=== PATIENT | female | born 1990 | race Caucasian/White ===

== ENCOUNTER → 2018-05-14 14:26 | Outpatient (CLI) | payer OTHER, SELFPAY ==
[2018-05-16 13:29] LABS: HPV Reflexed? NOT INDICATED
== END ==
PROVIDERS: Visit Provider Obstetrics & Gynecology
DX: Z12.4 Encounter for screening for malignant neoplasm of cervix (principal)
CPT/HCPCS: 88175; G0145

== ENCOUNTER → 2019-03-11 | Outpatient (CLI) | payer BC, SELFPAY | END | disposition home or self-care (01) | PROVIDERS: Family Provider Family Medicine; PCP Family Medicine; Visit Provider Family Medicine | DX: R10.9 Unspecified abdominal pain (principal) ==

== ENCOUNTER → 2019-06-11 | Outpatient (CLI) | payer BC, SELFPAY ==
[2019-06-11 09:08] VITALS: BMI 35.7
[2019-06-11 10:32] LABS: Cholesterol 201 mg/dL (200); Glucose 87 mg/dL (74-106); High Density Lipoprotein 45 mg/dL; Thyroid Stim Hormone (TSH) 1.48 uIU/mL (0.358-3.74); Triglycerides 192 mg/dL; Very Low Density Lipoprotein 38 mg/dL (5-40)
== END | disposition home or self-care (01) ==
LOC: PAVLAB 09:38
PROVIDERS: Family Provider Family Medicine; PCP Family Medicine; Referring Provider Nurse Practitioner Women's Health; Visit Provider Nurse Practitioner Women's Health
DX: E28.2 Polycystic ovarian syndrome (principal)
CPT/HCPCS: 36415; 80061; 82947; 84443

== ENCOUNTER → 2020-03-27 11:02 | Outpatient (CLI) | payer BC, SELFPAY ==
[2020-03-24 14:16] VITALS: BMI 35.7
--- NOTE | 2020-03-27 11:04 | US_ITS ---
STUDY: ULTRASOUND OF THE FEMALE PELVIS - COMPLETE REASON FOR EXAM: Female, 29 years old. IRREGULAR MENSES PELVIC PAIN LMP: January 18, 2020 . TECHNIQUE: Transabdominal and Transvaginal. TECHNICAL QUALITY: Adequate. COMPARISON: None. FINDINGS: The uterus is anteverted and is tilted to the right side of the pelvis. The uterus measures 6.0 x 3.3 x 2.4 cm. Normal uterine cervix. The endometrium measures 3 mm in thickness, and is hyperechoic. There is no demonstrated endometrial mass. There is no demonstrated myometrial mass. I.U.D. - The patient does not have an I.U.D. The right ovary is visualized. The right ovary measures 3.8 x 1.9 x 1.9 cm. There is no right ovarian cyst or ovarian mass. There is no visualized right adnexal mass or complex lesion. There is normal arterial and normal venous vascularity. The left ovary is visualized. The left ovary measures 3.8 x 2.8 x 1.7 cm. There is no left ovarian cyst or ovarian mass. There is no visualized left adnexal mass or complex lesion. There is normal arterial and normal venous vascularity. There is mild fluid in the cul-de-sac. The pre void volume of the bladder was 554 ml. Polycystic ovary disease: No. US/Pelvic (Non ) IMPRESSION: Normal female pelvis. Electronically Signed: Bryant Simpson MD at 15:24 EDT , Service support ,
--- NOTE | 2020-03-27 11:04 | US_ITS ---
STUDY: ULTRASOUND OF THE FEMALE PELVIS - COMPLETE REASON FOR EXAM: Female, 29 years old. IRREGULAR MENSES PELVIC PAIN LMP: January 18, 2020 . TECHNIQUE: Transabdominal and Transvaginal. TECHNICAL QUALITY: Adequate. COMPARISON: None. FINDINGS: The uterus is anteverted and is tilted to the right side of the pelvis. The uterus measures 6.0 x 3.3 x 2.4 cm. Normal uterine cervix. The endometrium measures 3 mm in thickness, and is hyperechoic. There is no demonstrated endometrial mass. There is no demonstrated myometrial mass. I.U.D. - The patient does not have an I.U.D. The right ovary is visualized. The right ovary measures 3.8 x 1.9 x 1.9 cm. There is no right ovarian cyst or ovarian mass. There is no visualized right adnexal mass or complex lesion. There is normal arterial and normal venous vascularity. The left ovary is visualized. The left ovary measures 3.8 x 2.8 x 1.7 cm. There is no left ovarian cyst or ovarian mass. There is no visualized left adnexal mass or complex lesion. There is normal arterial and normal venous vascularity. There is mild fluid in the cul-de-sac. The pre void volume of the bladder was 554 ml. Polycystic ovary disease: No. US/Transvaginal Non- IMPRESSION: Normal female pelvis. Electronically Signed: Bryant Simpson MD at 15:24 EDT , Service support ,
== END ==
LOC: US 11:04
PROVIDERS: PCP Family Medicine; Referring Provider Nurse Practitioner Women's Health; Visit Provider Nurse Practitioner Women's Health
DX: N92.6 Irregular menstruation, unspecified (principal)
CPT/HCPCS: 76830; 76856

== ENCOUNTER → 2020-04-09 09:54 | Outpatient (CLI) | payer BC, SELFPAY ==
[2020-03-24 14:16] VITALS: BMI 35.7
[2020-04-09 10:31] LABS: Estradiol 33.8 pg/mL; Prolactin 11.7 ng/mL; Thyroid Stim Hormone (TSH) 1.73 uIU/mL (0.358-3.74)
== END ==
LOC: PAVLAB 09:56
PROVIDERS: PCP Family Medicine; Referring Provider Nurse Practitioner Women's Health; Visit Provider Nurse Practitioner Women's Health
DX: N92.6 Irregular menstruation, unspecified (principal)
CPT/HCPCS: 36415; 82670; 84146; 84443

== ENCOUNTER → 2020-04-27 11:15 | Outpatient (CLI) | payer BC, SELFPAY ==
[2020-03-24 14:16] VITALS: BMI 35.7
[2020-04-27 13:19] LABS: Progesterone Level 0.85 ng/mL (See Comment)
== END ==
LOC: PAVLAB 11:16
PROVIDERS: PCP Family Medicine; Referring Provider Nurse Practitioner Women's Health; Visit Provider Nurse Practitioner Women's Health
DX: N92.6 Irregular menstruation, unspecified (principal)
CPT/HCPCS: 36415; 84144

== ENCOUNTER → 2020-06-05 10:11 | Outpatient (CLI) | payer BC, SELFPAY ==
[2020-03-24 14:16] VITALS: BMI 35.7
[2020-06-05 10:16] LABS: Bacteria 0 SEEN /hpf (None Seen); Mucous, Urine 0 SEEN /hpf (<or=2+)
[2020-06-05 12:10] LABS: Absolute Lymphocyte Count 2.02 X10^3/uL (0.83-4.51); Absolute Neutrophil Count 3.7 X10^3/uL (2.0-7.7); Basophil# 0.03 X10^3/uL; Basophil% 0.5 % (0-1); Eosinophil# 0.22 X10^3/uL; Eosinophils% 3.4 % (0-5); Hematocrit 42.5 % (37-47); Hemoglobin 13.9 g/dL (12.0-15.0); Lymphocyte # 2.02 X10^3/ul (4.0); Lymphocyte % 31.1 % (19-41); Mean Corp Hgb Conc 32.7 g/dL (32-36); Mean Corpuscular Hgb 29.4 pg (27.0-32.0); Monocyte# 0.48 X10^3/uL; Monocyte% 7.4 % (0-10); NRBC Flagged by Analyzer 0 % (0-5); Neutrophil # 3.72 X10^3/uL (2.7-7.7); Neutrophil % 57.3 % (47-70); Platelet Count 360 K/mm3 (150-450); RBC Distribution Width CV 12.8 % (11.6-14.6); RBC Distribution Width SD 42.3 fl (35.1-43.9); Red Blood Count 4.72 M/mm3 (4.2-5.4); White Blood Count 6.5 K/mm3 (4.4-11.0)
[2020-06-05 12:21] LABS: Color, Urine Yellow (Yellow); Glucose, Dipstick Normal (Normal); Ketone-Dipstick Negative (Negative); Leukocyte Esterase-Dipstick 100 /ul (Negative); Nitrite-Dipstick Negative (Negative); Occult Blood-Urine 150 /ul (Negative); Protein-Dipstick 15 mg/dl (Negative); Urine Bilirubin Dipstick Negative (Negative); Urine Clarity Clear (Clear); Urine Urobilinogen Normal (Normal)
[2020-06-05 12:29] LABS: Squamous Epithelial Cells - UA 10-25 SEEN /hpf (5-10)
[2020-06-05 12:30] LABS: Red Blood Cells-Urine 5-10 SEEN /hpf (0-5); White Blood Cells 5-10 SEEN /hpf (0-5)
[2020-06-05 12:33] LABS: D-Dimer Quantitative (DVT/PE) 0.42 FEU/ug/m (0.27-0.49)
[2020-06-05 12:34] LABS: Renal Epithelial Cells 0-5 SEEN /hpf (0-5)
[2020-06-05 12:46] LABS: AST(SGOT) 15 U/L (15-37); Alanine Aminotransfer ALT/SGPT 31 U/L (13-56); Alkaline Phosphatase 81 U/L (45-117); Anion Gap 5 (5-15); BUN 15 mg/dL (7-18); BUN/Creat Ratio 18.1 RATIO (10-20); Calcium,Total 9.2 mg/dL (8.5-10.1); Chloride 107 mmol/L (98-107); Creatinine, Serum 0.83 mg/dL (0.55-1.02); EST Glomerular Filtration Rate 87 mL/min (>60); Est Glom Filt Rate - Afr Amer 105 mL/min (>60); Globulin 4.1 g/dL (2.2-4.2); Glucose 89 mg/dL (74-106); Potassium 3.7 mmol/L (3.5-5.1); Protein, Total 8.1 g/dL (6.4-8.2); Sodium Level 139 mmol/L (136-145)
[2020-06-10 08:47] LABS: Aldosterone, Serum 14.3 ng/dL (0.0-30.0)
== END ==
PROVIDERS: PCP Family Medicine; Visit Provider Family Medicine
DX: R53.83 Other fatigue (principal); R06.00 Dyspnea, unspecified; M79.7 Fibromyalgia; R60.0 Localized edema
CPT/HCPCS: 36415; 80053; 81001; 82088; 85025; 85379

== ENCOUNTER → 2020-06-09 10:19 | Outpatient (CLI) | payer BC, SELFPAY ==
[2020-03-24 14:16] VITALS: BMI 35.7
[2020-06-09 11:17] LABS: Progesterone Level 1.44 ng/mL (See Comment)
== END ==
LOC: PAVLAB 10:21
PROVIDERS: PCP Family Medicine; Referring Provider Nurse Practitioner Women's Health; Visit Provider Nurse Practitioner Women's Health
DX: N97.0 Female infertility associated with anovulation (principal)
CPT/HCPCS: 36415; 84144

== ENCOUNTER → 2020-06-24 12:22 | Outpatient (CLI) | payer BC, SELFPAY ==
[2020-03-24 14:16] VITALS: BMI 35.7
== END ==
LOC: SL 12:22
PROVIDERS: PCP Family Medicine; Referring Provider Family Medicine; Visit Provider Family Medicine
DX: R53.83 Other fatigue (principal); R06.00 Dyspnea, unspecified; E66.9 Obesity, unspecified
CPT/HCPCS: 95806

== ENCOUNTER → 2020-11-02 13:35 | Outpatient (CLI) | payer BC, SELFPAY ==
[2020-03-24 14:16] VITALS: BMI 35.7
[2020-11-02 14:28] LABS: Progesterone Level 1.24 ng/mL (See Comment)
[2020-11-02 14:31] LABS: Estradiol 41.8 pg/mL; Follicle Stimulating Hormone 5.1 mIU/mL; Prolactin 12.9 ng/mL; Thyroid Stim Hormone (TSH) 0.93 uIU/mL (0.358-3.74)
[2020-11-02 14:55] LABS: Hemoglobin A1c 5.4 % (3.8-5.6)
[2020-11-05 12:31] LABS: 17-Hydroxyprogesterone 912 ng/dL (.)
== END ==
LOC: PAVLAB 13:36
PROVIDERS: PCP Family Medicine; Referring Provider Nurse Practitioner Women's Health; Visit Provider Nurse Practitioner Women's Health
DX: N91.2 Amenorrhea, unspecified (principal); N92.6 Irregular menstruation, unspecified; N97.0 Female infertility associated with anovulation; Z87.42 Personal history of other diseases of the female genital tract
CPT/HCPCS: 36415; 82670; 83001; 83036; 83498; 84144; 84146; 84443

== ENCOUNTER → 2020-12-26 10:33 | Outpatient (CLI) | payer BC, SELFPAY ==
[2020-03-24 14:16] VITALS: BMI 35.7
[2020-12-28 09:04] LABS: Progesterone Level 1.38 ng/mL (See Comment)
== END ==
PROVIDERS: PCP Family Medicine; Referring Provider Nurse Practitioner Women's Health; Visit Provider Nurse Practitioner Women's Health
DX: N97.0 Female infertility associated with anovulation (principal)
CPT/HCPCS: 36415; 84144

== ENCOUNTER → 2021-01-26 07:02 | Outpatient (CLI) | payer BC, SELFPAY ==
[2020-03-24 14:16] VITALS: BMI 35.7
[2021-01-26 08:19] LABS: Glucose 75GTT - Fasting 90 mg/dL (70-99)
[2021-01-26 08:19] LABS: Glucose 75GTT - 30 minutes 181 mg/dL (100-160)
[2021-01-26 08:26] LABS: Insulin 14.1 mU/L (2.6-37.6)
[2021-01-26 08:31] LABS: Glucose 90 mg/dL (74-106)
[2021-01-26 09:18] LABS: Glucose 75GTT - 60 minutes 205 mg/dL (100-160)
[2021-01-26 10:36] LABS: Glucose 75GTT - 120 minutes 139 mg/dL (70-140)
== END ==
PROVIDERS: PCP Family Medicine; Referring Provider Obstetrics & Gynecology Reproductive Endocrinology; Visit Provider Obstetrics & Gynecology Reproductive Endocrinology
DX: E28.2 Polycystic ovarian syndrome (principal)
CPT/HCPCS: 36415; 82947; 82951; 82952; 83525

== ENCOUNTER → 2021-03-29 16:46 | Outpatient (CLI) | payer BC, SELFPAY ==
[2021-03-29 10:56] VITALS: BMI 35.7
[2021-04-01 16:34] LABS: HPV Reflexed? NOT INDICATED
== END ==
PROVIDERS: PCP Family Medicine; Referring Provider Obstetrics & Gynecology; Visit Provider Obstetrics & Gynecology
DX: Z12.4 Encounter for screening for malignant neoplasm of cervix (principal)
CPT/HCPCS: 88175; G0145

== ENCOUNTER 2021-06-06 18:17 | Emergency (ER) | payer BC, SELFPAY ==
[2021-03-29 10:56] VITALS: BMI 35.7
[2021-06-06] VITALS (7 sets, daily range): BP systolic 105–151; BP diastolic 74–96; PULSE 90–123; RESP 14–23; TEMP 36.7; O2SAT 95–100; BMI 41.6
[2021-06-06] MEDS: Morphine 4 MG/ML Syringe IV (19:23)
[2021-06-06] MEDS: Ondansetron 4 MG/2 ML Vial IV (19:24)
[2021-06-06] MEDS: 0.9% Normal Saline 1,000 ML 150 ML IV (20:00)
[2021-06-06] MEDS: fentaNYL 100 MCG/2 ML Ampul 50 MCG IV (20:13)
[2021-06-06] MEDS: Midazolam 2 MG/2 ML Syringe IV (20:13)
--- NOTE | 2021-06-06 21:20 | EDS_ITS ---
HPI History of Present Illness Chief Complaint: Abscess Detail of Chief Complaint: Cyst on tailbone Informant: patient Onset/Context/Timing Onset: Days (Worse over past 3 days) Current Severity: Severe Maximum Severity: Severe Narrative Narrative: Patient presents with cyst on her tailbone. She states she is had trouble since childhood where she will get recurrent cyst that will open and drain. Over the past 3 days she is had significant enlargement and pain to the area. No fever or chills. She has never had this medically evaluated or treated. [facility] Medical History PCOS (polycystic ovarian syndrome) Home Medications citalopram 20 mg tablet 20 mg PO DAILY 03/29/21 [History Last Taken Unknown] cephalexin 500 mg PO Q6 #40 cap 06/06/21 [Rx Last Taken Unknown] sulfamethoxazole-trimethoprim [Bactrim DS] 1 tab PO BID #20 tab 06/06/21 [Rx Last Taken Unknown] Allergy/AdvReac Type Severity Reaction Status Date / Time No Known Allergies Allergy Verified 06/06/21 18:21 Family History Mother Fibroids DVT (deep venous thrombosis) Grandmother Diabetes Aunt Diabetes Surgical History cornea cross linking Eye abnormalities H/O colonoscopy H/O endoscopy Hernia [place] teeth extracted Social History number of children: 0 current occupational status: student 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 Smoking Status: Never smoker alcohol intake: current alcohol intake frequency: holidays/special occasions only substance use type: does not use diet: gluten free and lactose free caffeine: Yes Type: coffee Number of servings: 2 seatbelt use: always do you feel safe at home: Yes additional social history: 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 ROS ROS ED Constitutional Constitutional ED: Denies chills or fever(s) Eyes Eyes: Denies change in vision ENT ENT ED: Denies sore throat Cardiovascular Cardiovascular: Denies chest pain Respiratory/Chest Respiratory/Chest: Denies cough or dyspnea Gastrointestinal Gastrointestinal: Denies abdominal pain, diarrhea, nausea or vomiting Genitourinary Genitourinary ED: Denies dysuria Musculoskeletal Musculoskeletal: Reports back pain Integumentary Reports abscess; Denies rash Neurologic Neurologic: Denies headache(s) or weakness Psychiatric Psychiatric: Denies anxiety or depression Endocrine Endocrinology: Denies polydipsia or polyuria Allergic/Immunologic Allergic/Immunologic ED: Denies urticaria EXAM Physical Exam Const Vital Signs: 06/06/21 18:18 06/06/21 20:14 06/06/21 20:32 Temperature 98.1 F Temperature Source Temporal Pulse Rate 123 H 97 97 Pulse Rate [1 (Initial Baseline)] 100 Pulse Rate [3] 107 H Pulse Rate [4] 98 Respiratory Rate 16 18 23 H Respiratory Rate [1 (Initial Baseline)] 20 H Respiratory Rate [3] 22 H Respiratory Rate [4] 14 Blood Pressure 105/81 H 148/87 H 134/74 H Blood Pressure [1 (Initial Baseline)] 148/87 H Blood Pressure [3] 151/90 H Blood Pressure [4] 133/87 H Blood Pressure Mean 89 Pulse Ox 98 100 98 Oxygen Delivery Method Room Air Nasal Cannula Room Air Oxygen Delivery Method [2] Nasal Cannula Oxygen Delivery Method [3] Nasal Cannula Oxygen Delivery Method [4] Nasal Cannula Oxygen Flow Rate (L/min) 2 Oxygen Flow Rate (L/min) [2] 2 Oxygen Flow Rate (L/min) [3] 2 Oxygen Flow Rate (L/min) [4] 2 06/06/21 20:37 06/06/21 20:42 06/06/21 21:29 Temperature Temperature Source Pulse Rate 97 90 Pulse Rate [1 (Initial Baseline)] Pulse Rate [3] Pulse Rate [4] Respiratory Rate 16 16 14 Respiratory Rate [1 (Initial Baseline)] Respiratory Rate [3] Respiratory Rate [4] Blood Pressure 144/84 H 135/83 H 126/83 H Blood Pressure [1 (Initial Baseline)] Blood Pressure [3] Blood Pressure [4] Blood Pressure Mean Pulse Ox 96 95 99 Oxygen Delivery Method Room Air Room Air Oxygen Delivery Method [2] Oxygen Delivery Method [3] Oxygen Delivery Method [4] Oxygen Flow Rate (L/min) Oxygen Flow Rate (L/min) [2] Oxygen Flow Rate (L/min) [3] Oxygen Flow Rate (L/min) [4] Positive well nourished and well developed General Appearance ED: well developed HEENT Reports normocephalic and head/scalp atraumatic Eyes PERRL and EOMs intact bilaterally Neck supple Chest Wall inspection of chest normal and palpation of chest normal Resp normal respiratory effort and clear to auscultation bilaterally Cardio regular rate and regular rhythm GI normal to inspection, nondistended, normoactive bowel sounds Palpation: soft Back/Spine Back/Spine Narrative: Pilonidal cyst noted measuring approximately 2 x 3 cm. No surrounding cellulitis or induration. Extremity normal to inspection Neuro oriented x3 and no sensory deficits noted Sensorium / Orientation: alert Motor Exam: strength 5/5 throughout Psych mental status grossly normal MDM MDM MDM Narrative Medical decision making narrative: Patient was given morphine and Zofran for pain. She was consented for procedural sedation and I&D. Treatment and Re-Evaluation Comments:: Patient is placed on top executive and nasal cannula oxygen. She is lying prone on the bed. 50 mcg of fentanyl followed by 2 mg of IV Versed are given. Wound is cleansed and 2 cc of 1% lidocaine were infused locally. As I was infusing the lidocaine the wound opened and drained spontaneously. Blood and pus was expressed from the wound. Wound is thoroughly cleansed and dressed. Patient recovers from sedation easily. She is given Bactrim and Keflex will be given prescription for the same. She is referred to surgery for follow-up as needed. Discharge Plan Triage Chief Complaint: Abscess Other Complaint: Other, Pain/Inj ED Provider: Raeann Rowley Dx/Rx/DC Orders Clinical Impression: Pilonidal cyst Instructions: ED Cyst Pilonidal Infected IandD Prescriptions: New sulfamethoxazole-trimethoprim [Bactrim DS] 800-160 mg tablet 1 tab PO BID Qty: 20 RF: 0 cephalexin 500 mg capsule 500 mg PO Q6 Qty: 40 RF: 0 No Action citalopram [Celexa] 20 mg tablet 20 mg PO DAILY RF: 0 Primary Care Provider: Antwon Rodríguez Referrals: Dustin Merino MD [STAFF PHYSICIAN] - As Needed Antwon Rodríguez DO [Primary Care Provider] - Disposition Disposition: Home, Self Care Discharge Date/Time: 06/06/21 21:30
[2021-06-06] MEDS: Smz/Tmp Ds Tablet 1 TABLET PO (21:21)
[2021-06-06] MEDS: Cephalexin 250 MG Capsule 500 MG PO (21:21)
== END 2021-06-06 21:30 | disposition home or self-care (01) ==
PROVIDERS: Emergency Provider Emergency Medicine; PCP Family Medicine
DX: L05.91 Pilonidal cyst without abscess (principal); Z79.899 Other long term (current) drug therapy
CPT/HCPCS: 10080; 96374; 96375; 99152; 99285; J7030; A4216; J2405

== ENCOUNTER 2021-12-30 09:54 | Emergency (ER) | payer BC, SELFPAY ==
[2021-12-30 09:55] VITALS: BP 175/125; PULSE 125; RESP 20; TEMP 36.8; O2SAT 99; BMI 42.5
--- NOTE | 2021-12-30 10:09 | ED.VIS.FEGU ---
HPI <YENNI Lagunas - Last Filed: 12/30/21 12:46> HPI - Female History of Present Illness Chief Complaint: Vag Bld, Preg Narrative Narrative: 31-year-old female presents with vaginal bleeding in first trimester . She had a single embryo transfer done on December 09 at [facility] and is following with Dr. Nieto at [facility] infertility clinic. She states the embryo was 2-3 weeks along at the time of implantation. They were checking her hCG levels and they were going up appropriately. She has not had an ultrasound yet. This morning she was lying in bed and sneezed and felt some abdominal cramping. When she went to the bathroom she noticed some bright red blood on the toilet paper and a small amount in the toilet bowl. She also passed a tiny clot. She has light bleeding now and minimal pain. She has been having some morning sickness but otherwise feels well. This is her first . She does not know her blood type. [facility] <YENNI Lagunas - Last Filed: 12/30/21 12:46> [facility] Medical History (Updated 12/30/21 @ 12:39 by YENNI Lagunas) PCOS (polycystic ovarian syndrome) Home Medications citalopram 20 mg tablet 20 mg PO DAILY 03/29/21 [History Last Taken Unknown] cephalexin 500 mg PO Q6 #40 cap 06/06/21 [Rx Last Taken Unknown] sulfamethoxazole-trimethoprim [Bactrim DS] 1 tab PO BID #20 tab 06/06/21 [Rx Last Taken Unknown] labetalol 100 mg PO BID #60 tab 12/30/21 [Rx Last Taken Unknown] Allergy/AdvReac Type Severity Reaction Status Date / Time No Known Allergies Allergy Verified 12/30/21 09:58 Family History Mother Fibroids DVT (deep venous thrombosis) Grandmother Diabetes Aunt Diabetes Surgical History cornea cross linking Eye abnormalities H/O colonoscopy H/O endoscopy Hernia [place] teeth extracted Social History number of children: 0 current occupational status: student 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 Eyes: Negative for visual change. ENT: Negative for sore throat, rhinorrhea. CVS: Negative for palpitations, chest pain, syncope. Respiratory: Negative for shortness of breath, cough, orthopnea. GI: Positive for abdominal pain, nausea, vomiting. Negative for diarrhea, constipation, melena, hematochezia. : Negative for dysuria, hematuria or frequency. Neuro: Negative for headache, motor/sensory dysfunction. Skin: Negative for rash, abscess, or wound. Musc: Negative for joint pain, swelling, trauma. Heme: Negative for easy bruising, bleeding, lymphadenopathy. EXAM <YENNI Lagunas - Last Filed: 12/30/21 12:46> Physical Exam Narrative Exam Narrative: CONST: Patient sitting in no acute distress. EYES: Normal inspection. NECK: Normal inspection. RESP: No respiratory distress, CTAB. CVS: Regular rate and rhythm, no murmur, no gallop. ABD: Soft and nontender, no guarding or rebound, nondistended. : Normal external genitalia, closed cervical os, small clot in vaginal canal with no active bleeding. SKIN: Color normal, no rash, warm, dry, intact. EXTREMITIES: Normal appearance, no pedal edema. NEURO: Oriented x4. PSYCH: Normal affect. Const Vital Signs: 12/30/21 09:55 12/30/21 12:16 Temperature 98.2 F Temperature Source Temporal Pulse Rate 125 H Respiratory Rate 20 H Blood Pressure 175/125 H 154/93 H Blood Pressure Mean 141 113 Pulse Ox 99 Oxygen Delivery Method Room Air <Dr. Syed Godfrey MD - Last Filed: 12/30/21 12:54> Physical Exam Const Vital Signs: 12/30/21 09:55 12/30/21 12:16 Temperature 98.2 F Temperature Source Temporal Pulse Rate 125 H Respiratory Rate 20 H Blood Pressure 175/125 H 154/93 H Blood Pressure Mean 141 113 Pulse Ox 99 Oxygen Delivery Method Room Air [facility] <YENNI Lagunas - Last Filed: 12/30/21 12:46> [facility] Narrative Medical decision making narrative: Patient presents with abdominal cramping and bleeding for extremitas her . She appears well nontoxic. She was hypertensive at 170/100s and mildly tachycardic, otherwise normal vital signs. During my examination her heart is regular rate and rhythm, lungs clear, abdomen soft, nontender, nondistended. Pelvic exam showed closed cervical os with no active bleeding and just a small clot in the vault. Basic labs are unremarkable. No evidence of endorgan damage from her elevated blood pressure. Beta hCG is 3062. TV ultrasound shows estimated gestational age of 5 weeks, 3 days. At this time we discussed she is a threatened miscarriage. She needs to follow-up with her infertility doctor in [place]. Her blood pressure was discussed with her primary care's office who recommended starting labetalol. It did improve after IV labetalol here and she was prescribed 100 mg twice daily for home. She was counseled on signs that would warrant return to the ER and was discharged in stable condition. Diagnoses 1. Abnormal bleeding in first trimester 2. Threatened 3. Hypertension Lab Data Labs: Laboratory Results - last 24 hr 12/30/21 12/30/21 12/30/21 10:20 10:20 10:20 WBC 12.1 H RBC 4.53 Hgb 13.8 Hct 41.5 MCV 91.6 MCH 30.5 MCHC 33.3 RDW Std Deviation 50.3 H RDW Coeff of Cat 15.3 H Plt Count 395 MPV 9.7 Immature Gran % (Auto) 1.200 H Neut % (Auto) 67.4 Lymph % (Auto) 22.8 [place] % (Auto) 6.3 Eos % (Auto) 1.9 Baso % (Auto) 0.4 Absolute Neuts (auto) 8.1 H Absolute Lymphs (auto) 2.76 Nucleated RBC % 0 Sodium Potassium Chloride Carbon Dioxide Anion Gap BUN Creatinine Estim Creat Clear Calc Est GFR (MDRD) Af Amer Est GFR (MDRD) Non-Af BUN/Creatinine Ratio Glucose Calcium HCG, Quant 3062 H Urine Color Urine Clarity Urine pH Ur Specific Sylvester Urine Protein Urine Glucose (UA) Urine Ketones Urine Occult Blood Urine Nitrite Urine Bilirubin Urine Urobilinogen Ur Leukocyte Esterase Urine RBC Urine WBC Ur Squamous Epith Cells Urine Bacteria Urine Mucus Blood Type O POSITIVE 12/30/21 12/30/21 10:20 10:33 WBC RBC Hgb Hct MCV MCH MCHC RDW Std Deviation RDW Coeff of Cat Plt Count MPV Immature Gran % (Auto) Neut % (Auto) Lymph % (Auto) [place] % (Auto) Eos % (Auto) Baso % (Auto) Absolute Neuts (auto) Absolute Lymphs (auto) Nucleated RBC % Sodium 136 Potassium 3.7 Chloride 105 Carbon Dioxide 28.0 Anion Gap 3 L BUN 11 Creatinine 0.89 Estim Creat Clear Calc 69.75 Est GFR (MDRD) Af Amer 96 Est GFR (MDRD) Non-Af 79 BUN/Creatinine Ratio 12.4 Glucose 104 Calcium 9.0 HCG, Quant Urine Color Mary Ellen Urine Clarity Cloudy Urine pH 6.0 Ur Specific Sylvester 1.020 Urine Protein 100 H Urine Glucose (UA) Normal Urine Ketones 5 H Urine Occult Blood 250 H Urine Nitrite Negative Urine Bilirubin Negative Urine Urobilinogen Normal Ur Leukocyte Esterase 25 H Urine RBC 25-50 SEEN Urine WBC 0-5 SEEN Ur Squamous Epith Cells 0-5 SEEN Urine Bacteria 1+ Urine Mucus 0 SEEN Blood Type Radiography Diagnostic Testing: Clinical Impression(s) from Imaging Studies Obstetrics Ultrasound 12/30/21 11:36 IMPRESSION: No intrauterine gestational sac is seen at this time. Electronically Signed: Tucker Elizondo MD at 12:29 EST , <Dr. Syed Godfrey MD - Last Filed: 12/30/21 12:54> [facility] Narrative Medical decision making narrative: Patient is a 31-year-old Ab0 female who had an embryo implanted earlier this month. She states the embryo revealed low mosaic abnormality. She was informed that she had a 50 to 60% success rate. She does not know her blood type. She apparently is scheduled for an ultrasound this coming Monday. She presents today because of vaginal bleeding. She states it is more than spotting. She has not noted any clots. She presently denies any cramping pain. She denies dysuria or hematuria. She does report frequency. She denies low back or flank pain. There is no history of trauma. Patient's vital signs are remarkable for markedly elevated blood pressure and tachycardia. Since patient is only first trimester this would not be due to , preeclampsia. H EENT exam is unremarkable. Lungs are clear to auscultation. Heart is rapid and regular without murmur, gallop or rub. Abdomen is prominent. There is no peritoneal findings, guarding or significant tenderness. There may be slight discomfort to deep palpation. Pelvic exam was performed by physician first assistant. Patient states Dr. Rodríguez her primary care provider has talked to her about elevated blood pressure readings. She is presently on no antihypertensive. Her local sole splitter is Dr. Fine. Funduscopic exam reveals AV nicking and what appears to be copper wiring. This would suggest that she has had longstanding untreated hypertension. Spoke with Dr. Raeann Lowry who is on-call for Dr. Fine. Since patient is tachycardic will administer 20 mg of labetalol IV push. She states they normally would use Procardia XL and or labetalol. Since patient has longstanding hypertension with no evidence of endorgan injury she was discharged home with prescription for 100 g of labetalol. She was instructed follow-up with her PCP, OB and maternal medicine doctor. Lab Data Labs: Laboratory Results - last 24 hr 12/30/21 12/30/21 12/30/21 10:20 10:20 10:20 WBC 12.1 H RBC 4.53 Hgb 13.8 Hct 41.5 MCV 91.6 MCH 30.5 MCHC 33.3 RDW Std Deviation 50.3 H RDW Coeff of Cat 15.3 H Plt Count 395 MPV 9.7 Immature Gran % (Auto) 1.200 H Neut % (Auto) 67.4 Lymph % (Auto) 22.8 [place] % (Auto) 6.3 Eos % (Auto) 1.9 Baso % (Auto) 0.4 Absolute Neuts (auto) 8.1 H Absolute Lymphs (auto) 2.76 Nucleated RBC % 0 Sodium Potassium Chloride Carbon Dioxide Anion Gap BUN Creatinine Estim Creat Clear Calc Est GFR (MDRD) Af Amer Est GFR (MDRD) Non-Af BUN/Creatinine Ratio Glucose Calcium HCG, Quant 3062 H Urine Color Urine Clarity Urine pH Ur Specific Sylvester Urine Protein Urine Glucose (UA) Urine Ketones Urine Occult Blood Urine Nitrite Urine Bilirubin Urine Urobilinogen Ur Leukocyte Esterase Urine RBC Urine WBC Ur Squamous Epith Cells Urine Bacteria Urine Mucus Blood Type O POSITIVE 12/30/21 12/30/21 10:20 10:33 WBC RBC Hgb Hct MCV MCH MCHC RDW Std Deviation RDW Coeff of Cat Plt Count MPV Immature Gran % (Auto) Neut % (Auto) Lymph % (Auto) [place] % (Auto) Eos % (Auto) Baso % (Auto) Absolute Neuts (auto) Absolute Lymphs (auto) Nucleated RBC % Sodium 136 Potassium 3.7 Chloride 105 Carbon Dioxide 28.0 Anion Gap 3 L BUN 11 Creatinine 0.89 Estim Creat Clear Calc 69.75 Est GFR (MDRD) Af Amer 96 Est GFR (MDRD) Non-Af 79 BUN/Creatinine Ratio 12.4 Glucose 104 Calcium 9.0 HCG, Quant Urine Color Mary Ellen Urine Clarity Cloudy Urine pH 6.0 Ur Specific Sylvester 1.020 Urine Protein 100 H Urine Glucose (UA) Normal Urine Ketones 5 H Urine Occult Blood 250 H Urine Nitrite Negative Urine Bilirubin Negative Urine Urobilinogen Normal Ur Leukocyte Esterase 25 H Urine RBC 25-50 SEEN Urine WBC 0-5 SEEN Ur Squamous Epith Cells 0-5 SEEN Urine Bacteria 1+ Urine Mucus 0 SEEN Blood Type Radiography Diagnostic Testing: Clinical Impression(s) from Imaging Studies Obstetrics Ultrasound 12/30/21 11:36 IMPRESSION: No intrauterine gestational sac is seen at this time. Electronically Signed: Tucker Elizondo MD at 12:29 EST , Discharge Plan Triage Chief Complaint: Vag Bld, Preg ED Provider: Letitia Pierre Dx/Rx/DC Orders Clinical Impression: Bleeding in early , Hypertension Instructions: Controlling High Blood Pressure, Bleeding During Early Prescriptions: New labetalol 100 mg tablet 100 mg PO BID Qty: 60 RF: 0 No Action citalopram [Celexa] 20 mg tablet 20 mg PO DAILY RF: 0 sulfamethoxazole-trimethoprim [Bactrim DS] 800-160 mg tablet 1 tab PO BID Qty: 20 RF: 0 cephalexin 500 mg capsule 500 mg PO Q6 Qty: 40 RF: 0 Primary Care Provider: Antwon Rodríguez Referrals: Antwon Rodríguez DO [Primary Care Provider] - Activity Restrictions/Additional Instructions: Today you were seen for bleeding in first trimester . Your hormone was 3062. The ultrasound showed a 5-week, 3-day . Right now things look well but with the bleeding you are at risk for miscarriage. If you have worsening abdominal pain or bleeding this may be occurring. Your blood pressure was also elevated. Dr. Rodríguez recommended starting you on labetalol 100 mg twice a day. You can pick it up and take the first dose tonight. 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 Disposition Disposition: Home, Self Care Discharge Date/Time: 12/30/21 12:52
[2021-12-30 10:41] LABS: Absolute Lymphocyte Count 2.76 X10^3/uL (0.83-4.51); Absolute Neutrophil Count 8.1 X10^3/uL (2.0-7.7); Basophil# 0.05 X10^3/uL; Basophil% 0.4 % (0-1); Eosinophil# 0.23 X10^3/uL; Eosinophils% 1.9 % (0-5); Hematocrit 41.5 % (37-47); Hemoglobin 13.8 g/dL (12.0-15.0); Lymphocyte # 2.76 X10^3/ul (0.83-4.51); Lymphocyte % 22.8 % (19-41); Mean Corp Hgb Conc 33.3 g/dL (32-36); Mean Corpuscular Hgb 30.5 pg (27.0-32.0); Mean Corpuscular Volume 91.6 fL (81-99); Mean Platelet Vol. 9.7 fl (6.2-12.0); Monocyte# 0.76 X10^3/uL; Monocyte% 6.3 % (0-10); NRBC Flagged by Analyzer 0 % (0-5); Neutrophil # 8.14 X10^3/uL (2.7-7.7); Neutrophil % 67.4 % (47-70); Platelet Count 395 K/mm3 (150-450); RBC Distribution Width CV 15.3 % (11.6-14.6); RBC Distribution Width SD 50.3 fl (35.1-43.9); Red Blood Count 4.53 M/mm3 (4.2-5.4); White Blood Count 12.1 K/mm3 (4.4-11.0)
[2021-12-30 10:44] LABS: Mucous, Urine 0 SEEN /hpf (<or=2+)
[2021-12-30 10:52] LABS: Color, Urine Amber (Yellow); Glucose, Dipstick Normal (Normal); Ketone-Dipstick 5 mg/dl (Negative); Leukocyte Esterase-Dipstick 25 /ul (Negative); Nitrite-Dipstick Negative (Negative); Occult Blood-Urine 250 /ul (Negative); Protein-Dipstick 100 mg/dl (Negative); Urine Bilirubin Dipstick Negative (Negative); Urine Clarity Cloudy (Clear); Urine Urobilinogen Normal (Normal)
[2021-12-30 10:59] LABS: Bacteria 1+ /hpf (None Seen); Red Blood Cells-Urine 25-50 SEEN /hpf (0-5); Squamous Epithelial Cells - UA 0-5 SEEN /hpf (5-10); White Blood Cells 0-5 SEEN /hpf (0-5)
[2021-12-30 11:34] LABS: hCG Titer Quant., Serum 3062 mIU/mL (1-3)
[2021-12-30 11:35] LABS: Anion Gap 3 (5-15); BUN 11 mg/dL (7-18); BUN/Creat Ratio 12.4 RATIO (10-20); Chloride 105 mmol/L (98-107); Creatinine, Serum 0.89 mg/dL (0.55-1.02); EST Glomerular Filtration Rate 79 mL/min (>60); Est Glom Filt Rate - Afr Amer 96 mL/min (>60); Estimated Creatinine Clearance 69.75 ml/min; Glucose 104 mg/dL (74-106); Potassium 3.7 mmol/L (3.5-5.1); Sodium Level 136 mmol/L (136-145)
--- NOTE | 2021-12-30 11:36 | US_ITS ---
STUDY: FIRST TRIMESTER OBSTETRICAL ULTRASOUND REASON FOR EXAM: Female, 31 years old . Vaginal bleeding. Transfer of embryo on 12/09/2021. LMP: Unknown. TECHNIQUE: Transvaginal TECHNICAL QUALITY: Adequate. PRIOR ULTRASOUND: None. FINDINGS: There is no demonstrated intrauterine gestational sac. There is no demonstrated yolk sac. The placenta is non-visualized. There is no demonstrated embryo ( pole). The estimated gestation age (EGA) by US is 5 weeks, 3 days. The estimated date of delivery (FANI) by US is 08/29/2022.. The uterus measures 8.1 cm x 4.2 cm x 5 cm. There is no demonstrated uterine fibroid. The cervix is closed. The right ovary was not visualized. The left ovary was not visualized. There is no fluid in the cul de sac. US/Transvaginal w/Preg US IMPRESSION: No intrauterine gestational sac is seen at this time. Electronically Signed: Tucker Elizondo MD at 12:29 EST ,
[2021-12-30 12:16] VITALS: BP 154/93
[2021-12-30] MEDS: Labetalol (Prefilled) 20 MG/4 ML IV (12:22)
[2021-12-30 12:52] VITALS: BP 137/79; PULSE 78; RESP 14; O2SAT 99
== END 2021-12-30 12:52 | disposition home or self-care (01) ==
PROVIDERS: Emergency Provider Physician Assistant; PCP Family Medicine; Visit Provider Physician Assistant
DX: O20.0 Threatened abortion (principal); O10.911 Unspecified pre-existing hypertension complicating pregnancy, first trimester; Z3A.01 Less than 8 weeks gestation of pregnancy
CPT/HCPCS: 76817; 80048; 81001; 84702; 85025; 86900; 86901; 87086; 87088; 96374; 99283; A4216

== ENCOUNTER 2022-01-07 15:43 | Emergency (ER) | payer BC, SELFPAY ==
[2022-01-07 15:43] VITALS: BP 201/105; PULSE 111; RESP 17; TEMP 36.1; O2SAT 100; BMI 45.3
--- NOTE | 2022-01-07 16:04 | EKG12_ITS ---
Test Reason : SOB Blood Pressure : / mmHG Vent. Rate : 104 BPM Atrial Rate : 104 BPM P-R Int : 142 ms QRS Dur : 086 ms QT Int : 368 ms P-R-T Axes : 056 061 005 degrees QTc Int : 483 ms Sinus tachycardia Otherwise normal ECG Confirmed by DESI VELASQUEZ, BABAR ([id number]), film editor YEIMY CELESTE ([id number]) on 01/10/2022 10:54:55 AM Referred By: PC Confirmed By:BABAR WEEKS MD
--- NOTE | 2022-01-07 16:04 | CT_ITS ---
STUDY: CTA CHEST REASON FOR EXAM: Female, 31 years old. sob -- elevated dimer OP, on estrogen, complete miscarri RADIATION DOSAGE (If Supplied By Facility): CTDIvol = ( 9.23 ) mGy, DLP = ( 540.15 ) mGycm TECHNIQUE: The examination was performed with the intravenous administration of IV 100mL Isovue-370. Post-processing of the angiographic images was performed, with multiplanar reformation and 3D reconstruction. Individualized dose optimization techniques were used for this CT. COMPARISON: None. FINDINGS: Normal enhancement of the main pulmonary artery and right and left pulmonary arteries. Normal enhancement of the bilateral peripheral pulmonary arteries. There is no demonstrated pulmonary embolism. Normal thoracic aorta and visualized great vessels. There is no demonstrated aortic dissection. Normal heart and pericardium. Normal mediastinum. Normal hilar regions. Normal visualized trachea and bronchi. The lungs are well expanded. Normal pulmonary parenchyma. Normal pleura. Normal chest wall structures. Normal osseous structures. Normal visualized upper abdomen. CT/CTA Chest W/WO Contrast IMPRESSION: Normal CTA chest examination, without a demonstrated pulmonary embolism or arterial dissection. Electronically Signed: Franklyn West DO at 17:07 EST Reading Location ID and State: [facility] / [place] Tel [phone], Service support ,
--- NOTE | 2022-01-07 16:06 | EDS_ITS ---
HPI History of Present Illness Chief Complaint: Shortness of Breath Informant: patient Narrative Narrative: Patient sent in by PCP for PE rule out. Patient has been having short of breath for the past month. She has been on estrogen therapy for IVF. She was with a total miscarriage in the last week. She is seen in the ED 8 days ago for threatened miscarriage with vaginal bleeding. States she miscarriage that evening. There is no bleeding her hCG has trended down followed by her OB. She has she thought her breathing was secondary to her . She did follow with her PCP [address] Rodríguez due to her elevated blood pressure. She has been on blood pressure medicines for the past month. She reported the symptoms. Mother with blood clots and . States mother was also on hormone therapy. There is no clotting disorders that she is aware of. [facility] Medical History (Updated 01/07/22 @ 17:[address] Darwin Frye DO) PCOS (polycystic ovarian syndrome) Home Medications citalopram 20 mg tablet 20 mg PO DAILY 03/29/21 [History Last Taken Unknown] cephalexin 500 mg PO Q6 #40 cap 06/06/21 [Rx Last Taken Unknown] sulfamethoxazole-trimethoprim [Bactrim DS] 1 tab PO BID #20 tab 06/06/21 [Rx Last Taken Unknown] labetalol 100 mg PO BID #60 tab 12/30/21 [Rx Last Taken Unknown] Allergy/AdvReac Type Severity Reaction Status Date / Time No Known Allergies Allergy Verified 01/07/22 16:32 Family History Mother Fibroids DVT (deep venous thrombosis) Grandmother Diabetes Aunt Diabetes Surgical History cornea cross linking Eye abnormalities H/O colonoscopy H/O endoscopy Hernia [place] teeth extracted Social History number of children: 0 current occupational status: student 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 Smoking Status: Never smoker alcohol intake: current alcohol intake frequency: holidays/special occasions only substance use type: does not use diet: gluten free and lactose free caffeine: Yes Type: coffee Number of servings: 2 seatbelt use: always do you feel safe at home: Yes additional social history: 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 ROS ROS ED Constitutional Constitutional ED: Denies chills, fever(s) or sweats Eyes Eyes: Denies change in vision ENT ENT ED: Denies dysphagia or sore throat Cardiovascular Cardiovascular: Denies chest pain, leg edema, palpitations or racing heartbeat Respiratory/Chest Respiratory/Chest: Reports dyspnea; Denies cough or dyspnea on exertion Gastrointestinal Gastrointestinal: Denies abdominal pain, diarrhea, nausea or vomiting Genitourinary Genitourinary ED: Denies dysuria, hematuria or urinary frequency Musculoskeletal Musculoskeletal: Denies back pain, extremity pain or neck pain Integumentary Denies rash or wounds Neurologic Neurologic: Denies headache(s), paresthesias or weakness EXAM Physical Exam Const Vital Signs: 01/07/22 15:43 01/07/22 17:52 Temperature 96.9 F L Temperature Source Temporal Pulse Rate 111 H Respiratory Rate 17 87 H Blood Pressure 201/105 H 146/83 H Blood Pressure Mean 137 Pulse Ox 100 Oxygen Delivery Method Room Air Positive well nourished and well developed General Appearance ED: well developed and NAD HEENT Reports moist mucous membranes normocephalic and atraumatic Eyes PERRL, EOMs intact bilaterally and conjunctivae normal General Eye ED: Yes normal appearance of both eyes Neck no lymphadenopathy and supple General: Negative for tenderness Chest Wall Chest: Negative for tenderness Resp normal respiratory effort and normal air movement Effort and Inspection: symmetric chest movement; Negative for respiratory distress Cardio regular rate and no murmurs Rate: tachycardic Peripheral Pulses: pulses 2+ throughout GI normal to inspection, nondistended, normoactive bowel sounds and non-tender Palpation: Negative for guarding or rebound tenderness present Back/Spine no CVA tenderness and no thoracic nor lumbar tenderness Extremity normal to inspection Extremity Narrative: No calf or medial thigh tenderness. No swelling. General Extremety ED: Negative for edema or tenderness General Extremity: Negative for edema Neuro oriented x3 and no sensory deficits noted Sensorium / Orientation: awake and alert Skin no rashes or lesions noted and no wounds MDM MDM MDM Narrative Medical decision making narrative: For elevated D-dimer as an outpatient she was tachycardic on arrival. She has risk factors. Moderate risk with a positive D- dimer labs were obtained stable CTA chest negative for any acute process. Blood pressure improved without intervention. Patient is more reassured. Patient follow-up with her PCP as an outpatient. All questions were answered. Lab Data Attestation: I reviewed the patient's lab results. Labs: Laboratory Results - last 24 hr 01/07/22 01/07/22 01/07/22 16:33 16:33 16:33 WBC 12.0 H RBC 4.19 L Hgb 12.7 Hct 38.9 MCV 92.8 MCH 30.3 MCHC 32.6 RDW Std Deviation 51.4 H RDW Coeff of Cat 15.3 H Plt Count 413 MPV 9.3 Immature Gran % (Auto) 1.300 H Neut % (Auto) 61.4 Lymph % (Auto) 26.2 [place] % (Auto) 6.4 Eos % (Auto) 4.2 Baso % (Auto) 0.5 Absolute Neuts (auto) 7.4 Absolute Lymphs (auto) 3.13 Nucleated RBC % 0 PT 13.6 INR 1.1 APTT 28.6 Sodium 137 Potassium 3.5 Chloride 104 Carbon Dioxide 27.0 Anion Gap 6 BUN 11 Creatinine 0.83 Estim Creat Clear Calc 74.79 Est GFR (MDRD) Af Amer 104 Est GFR (MDRD) Non-Af 86 BUN/Creatinine Ratio 13.3 Glucose 88 Calcium 9.0 Radiography Diagnostic Testing: Clinical Impression(s) from Imaging Studies Chest CTA 01/07/22 16:04 IMPRESSION: Normal CTA chest examination, without a demonstrated pulmonary embolism or arterial dissection. Electronically Signed: Franklyn West DO at 17:07 EST Reading Location ID and State: [address] [place] [address] Tel [phone], Service support , EKG Initial EKG: Attestation: I personally reviewed and interpreted this EKG as follows: Comments: Sinus rhythm 104, no ST changes. Isolated T wave inversion Discharge Plan Triage Chief Complaint: Shortness of Breath ED Provider: Darwin Frye Dx/Rx/DC Orders Clinical Impression: Dyspnea, Elevated blood pressure reading in office with diagnosis of hypertension Instructions: ED Dyspnea, ED Hypertension, Established Prescriptions: No Action citalopram [Celexa] 20 mg tablet 20 mg PO DAILY RF: 0 sulfamethoxazole-trimethoprim [Bactrim DS] 800-160 mg tablet 1 tab PO BID Qty: 20 RF: 0 cephalexin 500 mg capsule 500 mg PO Q6 Qty: 40 RF: 0 labetalol 100 mg tablet 100 mg PO BID Qty: 60 RF: 0 Primary Care Provider: Antwon Rodríguez Referrals: Antwon Rodríguez DO [Primary Care Provider] - 3-5 Days Activity Restrictions/Additional Instructions: Your CAT scan of your chest negative for PE. Blood pressure is elevated continue your blood pressure medicines and follow-up with your PCP for recheck and further treatment. Disposition Disposition: Home, Self Care Discharge Date/Time: 01/07/22 17:53
[2022-01-07 16:49] LABS: Absolute Lymphocyte Count 3.13 X10^3/uL (0.83-4.51); Absolute Neutrophil Count 7.4 X10^3/uL (2.0-7.7); Basophil# 0.06 X10^3/uL; Basophil% 0.5 % (0-1); Eosinophils% 4.2 % (0-5); Hematocrit 38.9 % (37-47); Hemoglobin 12.7 g/dL (12.0-15.0); Lymphocyte # 3.13 X10^3/ul (0.83-4.51); Lymphocyte % 26.2 % (19-41); Mean Corp Hgb Conc 32.6 g/dL (32-36); Mean Corpuscular Hgb 30.3 pg (27.0-32.0); Mean Corpuscular Volume 92.8 fL (81-99); Mean Platelet Vol. 9.3 fl (6.2-12.0); Monocyte# 0.76 X10^3/uL; Monocyte% 6.4 % (0-10); NRBC Flagged by Analyzer 0 % (0-5); Neutrophil # 7.36 X10^3/uL (2.7-7.7); Neutrophil % 61.4 % (47-70); Platelet Count 413 K/mm3 (150-450); RBC Distribution Width CV 15.3 % (11.6-14.6); RBC Distribution Width SD 51.4 fl (35.1-43.9); Red Blood Count 4.19 M/mm3 (4.2-5.4)
--- NOTE | 2022-01-07 16:59 | ED.RN ---
Patients monitor in room currently broken at this time. Per kenya Benjamin to not have patient on monitor.
[2022-01-07 17:01] LABS: International Normalized Ratio 1.1; Partial Thromboplast Time 28.6 Seconds (24.1-36.2); Prothrombin Time (Protime)PT. 13.6 SECONDS (11.7-14.9)
[2022-01-07 17:38] LABS: Anion Gap 6 (5-15); BUN 11 mg/dL (7-18); BUN/Creat Ratio 13.3 RATIO (10-20); Chloride 104 mmol/L (98-107); Creatinine, Serum 0.83 mg/dL (0.55-1.02); EST Glomerular Filtration Rate 86 mL/min (>60); Est Glom Filt Rate - Afr Amer 104 mL/min (>60); Estimated Creatinine Clearance 74.79 ml/min; Glucose 88 mg/dL (74-106); Potassium 3.5 mmol/L (3.5-5.1); Sodium Level 137 mmol/L (136-145)
[2022-01-07 17:52] VITALS: BP 146/83; RESP 87
== END 2022-01-07 17:53 | disposition home or self-care (01) ==
PROVIDERS: Emergency Provider Emergency Medicine; PCP Family Medicine; Visit Provider Emergency Medicine
DX: R06.00 Dyspnea, unspecified (principal); R03.0 Elevated blood-pressure reading, without diagnosis of hypertension
CPT/HCPCS: 71275; 80048; 85025; 85610; 85730; 93005; 99284; Q9967; A4216

== ENCOUNTER 2022-02-18 07:15 | Outpatient (CLI) | payer BC, SELFPAY ==
--- NOTE | 2022-02-18 13:09 | PFTCOMP ---
COMPLETE PULMONARY FUNCTION TEST INTERPRETATION Brief HPI: Patient is a 31 year old female, currently under the care of Dr. Rodríguez, who presents to [facility] for complete pulmonary function tests secondary to diagnosis of dyspnea. Respiratory therapist reports good effort and reproducible results. Interpretation: Forced expiration spirometry shows no large airways obstructive ventilatory defect with an FEV1 of 98% predicted. There is no significant bronchodilator response by strict ATS criteria. Spirograms are of good quality and plateau normally. The respiratory flow volume loop shows a normal pattern. Lung volumes by body plethysmography show a normal total lung capacity at 4.17 L, 92% predicted. All other lung volumes are within normal limits. Diffusion capacity by carbon monoxide is normal at 81% predicted. The airway resistance is normal. No previous pulmonary function tests were available for review. Impression: These pulmonary function tests are within normal limits
== END 2022-02-18 23:59 | disposition home or self-care (01) ==
PROVIDERS: PCP Family Medicine; Referring Provider Family Medicine; Visit Provider Family Medicine
DX: R06.00 Dyspnea, unspecified (principal)
CPT/HCPCS: 94060; 94726; 94729

== ENCOUNTER → 2022-03-11 | Outpatient (CLI) | payer BC, SELFPAY | END | disposition home or self-care (01) | LOC: SL 21:14 | PROVIDERS: PCP Family Medicine; Visit Provider Family Medicine | DX: G47.10 Hypersomnia, unspecified (principal) | CPT/HCPCS: 95810 ==

== ENCOUNTER → 2022-04-08 | Outpatient (CLI) | payer BC, SELFPAY ==
[2022-04-18 11:26] LABS: Dilute Prothrombin Time (dPT) 39.2 sec (0.0-47.6); Dilute Russell Viper Venom 39.8 sec (0.0-47.0); PTT-LA 32.4 sec (0.0-51.9); Protein C Antigen 138 % (60-150); Protein C, Functional 153 % (73-180); Protein S, Free 109 % (61-136); Thrombin Time 18.5 sec (0.0-23.0); dPT Confirm Ratio 1.14 Ratio (0.00-1.34)
[2022-04-18 18:03] LABS: Antithrombin 3 Function 81 % (75-135); Interpretation Comment: (.); Protein S, Funtional 70 % (63-140); Protein S, Total 90 % (60-150)
== END | disposition home or self-care (01) ==
LOC: LAB 12:09
PROVIDERS: PCP Family Medicine; Referring Provider Obstetrics & Gynecology; Visit Provider Obstetrics & Gynecology
DX: E25.0 Congenital adrenogenital disorders associated with enzyme deficiency (principal); Z82.49 Family history of ischemic heart disease and other diseases of the circulatory system
CPT/HCPCS: 36415; 81241; 85300; 85302; 85303; 85305; 85306

== ENCOUNTER → 2022-04-12 | Outpatient (CLI) | payer BC, SELFPAY | END | disposition home or self-care (01) | LOC: SL 20:20 | PROVIDERS: PCP Family Medicine; Visit Provider Family Medicine | DX: G47.33 Obstructive sleep apnea (adult) (pediatric) (principal) | CPT/HCPCS: 95811 ==

== ENCOUNTER → 2022-04-28 | Outpatient (CLI) | payer BC, SELFPAY | END | disposition home or self-care (01) | LOC: SL 09:40 | PROVIDERS: PCP Family Medicine; Visit Provider Nurse Practitioner Acute Care | DX: Z46.89 Encounter for fitting and adjustment of other specified devices (principal) ==

== ENCOUNTER → 2022-11-04 | Outpatient (CLI) | payer BC, SELFPAY ==
[2022-11-08 20:07] LABS: Chlamydia By Nucleic Acid AMP Negative (Negative)
[2022-11-08 20:13] LABS: Gonococcus By Nucleic Acid AMP Negative (Negative)
== END | disposition home or self-care (01) ==
PROVIDERS: Visit Provider Obstetrics & Gynecology
DX: Z34.90 Encounter for supervision of normal pregnancy, unspecified, unspecified trimester (principal)
CPT/HCPCS: 87086; 87088; 87491; 87591

== ENCOUNTER → 2022-11-14 | Outpatient (CLI) | payer BC, SELFPAY ==
[2022-11-14 11:44] LABS: Absolute Lymphocyte Count 1.47 X10^3/uL (0.83-4.51); Absolute Neutrophil Count 6.3 X10^3/uL (2.0-7.7); Basophil# 0.02 X10^3/uL; Basophil% 0.2 % (0-1); Eosinophil# 0.35 X10^3/uL; Hematocrit 35.1 % (37-47); Lymphocyte # 1.47 X10^3/ul (0.83-4.51); Lymphocyte % 16.8 % (19-41); Mean Corp Hgb Conc 31.3 g/dL (32-36); Mean Corpuscular Hgb 29.2 pg (27.0-32.0); Mean Corpuscular Volume 93.1 fL (81-99); Mean Platelet Vol. 9.3 fl (6.2-12.0); Monocyte# 0.38 X10^3/uL; Monocyte% 4.4 % (0-10); NRBC Flagged by Analyzer 0 % (0-5); Neutrophil # 6.34 X10^3/uL (2.7-7.7); Neutrophil % 72.7 % (47-70); Platelet Count 358 K/mm3 (150-450); RBC Distribution Width CV 16.3 % (11.6-14.6); RBC Distribution Width SD 54.4 fl (35.1-43.9); Red Blood Count 3.77 M/mm3 (4.2-5.4); White Blood Count 8.7 K/mm3 (4.4-11.0)
[2022-11-14 12:08] LABS: Glucose Challenge Gest 1H 50g 181 mg/dL (70-140)
[2022-11-14 12:47] LABS: HIV - WCH Non-Reactive (Nonreactive); Hepatitis B Surface Antigen Non-Reactive (Nonreactive); Hepatitis C Antibody Non-Reactive (Nonreactive); Rubella IgG Reactive (Nonreactive); Syphilis Antibodies Non-reactive
== END | disposition home or self-care (01) ==
LOC: PAVLAB 10:24
PROVIDERS: PCP Family Medicine; Referring Provider Obstetrics & Gynecology; Visit Provider Obstetrics & Gynecology
DX: O99.210 Obesity complicating pregnancy, unspecified trimester (principal); Z3A.00 Weeks of gestation of pregnancy not specified
CPT/HCPCS: 36415; 82950; 85025; 86703; 86762; 86780; 86803; 86850; 86900; 86901; 87340

== ENCOUNTER → 2023-01-02 | Outpatient (CLI) | payer BC, SELFPAY ==
[2023-01-02 16:19] LABS: Protein, Urine (Random) 15.2 mg/dL (<11.9); Protein:Creat Ratio 121 mg/g CRE (0-200)
[2023-01-02 16:20] LABS: ALB/GLOB Ratio 0.7 RATIO (0.9-2.4); AST(SGOT) 18 U/L (15-37); Alanine Aminotransfer ALT/SGPT 21 U/L (13-56); Alkaline Phosphatase 69 U/L (45-117); Anion Gap 9 (5-15); BUN 9 mg/dL (7-18); BUN/Creat Ratio 13.9 RATIO (10-20); Calcium,Total 10.1 mg/dL (8.5-10.1); Chloride 105 mmol/L (98-107); Creatinine, Serum 0.65 mg/dL (0.55-1.02); EST Glomerular Filtration Rate 113 mL/min (>60); Est Glom Filt Rate - Afr Amer 137 mL/min (>60); Globulin 4.2 g/dL (2.2-4.2); Glucose 97 mg/dL (74-106); Potassium 4.1 mmol/L (3.5-5.1); Protein, Total 7.2 g/dL (6.4-8.2); Sodium Level 139 mmol/L (136-145)
== END | disposition home or self-care (01) ==
PROVIDERS: PCP Family Medicine; Referring Provider Obstetrics & Gynecology; Visit Provider Obstetrics & Gynecology
DX: O16.9 Unspecified maternal hypertension, unspecified trimester (principal); Z13.1 Encounter for screening for diabetes mellitus
CPT/HCPCS: 36415; 80053; 82570; 84156

== ENCOUNTER 2023-01-22 11:16 | Emergency (ER) | payer BC, SELFPAY ==
[2023-01-22 11:18] VITALS: BP 171/89; PULSE 108; RESP 28; TEMP 36.1; O2SAT 100; BMI 45.1
--- NOTE | 2023-01-22 11:25 | ED.RN ---
TRIAGE NURSE CONSULTED DR. COOK REGARDING PATIENT BLOOD PRESSURE AND 21 WEEKS GESTATION, HE WAS AWARE OF PATIENT BEING SENT BY UC AND WILL EVALUATE TO R/O SYMPTOMS BY ED FIRST BEFORE OB.
--- NOTE | 2023-01-22 11:27 | EDS_ITS ---
HPI History of Present Illness Chief Complaint: Shortness of Breath Informant: patient Onset/Context/Timing Onset: Weeks (1) Context: gradual Timing: Continuous Quality: Positive for Dyspnea on exertion Worsened by: Exertion Relieved by: Rest Associated Symptoms cough, rhinorrhea and fever; Negative for post nasal drip, ear pain, sore throat, chills, sweats, clear sputum, white sputum, yellow sputum or green sputum Narrative Narrative: Patient presents with shortness of breath that has been getting worse over the past week. Patient states she feels like she cannot catch her breath. Patient states it is worse with any exertion. Patient states it is better with rest. Patient states she has had a recent cough but denies any sputum production. Patient states she tested positive for COVID-19 approximately 6 days ago. Patient states she has some sharp pain in her chest with coughing. Patient states it is over the substernal area. Patient admits to some fevers last week but currently denies any fevers. [facility] Medical History Congenital adrenal hyperplasia Factor V Leiden Hx of recurrent urinary tract infection Hypertension PCOS (polycystic ovarian syndrome) Sleep apnea Home Medications labetalol 100 mg tablet 100 mg PO BID #60 tabs 12/30/21 [Rx Last Taken Unknown] diphenhydramine HCl 25 mg capsule (Benadryl) 25 mg PO QHS PRN 04/08/22 [History Last Taken Unknown] loratadine 10 mg tablet (Claritin) 10 mg PO DAILY 04/08/22 [History Last Taken Unknown] enoxaparin 40 mg/0.4 mL subcutaneous syringe 40 mg subcut DAILY 11/04/22 [History Last Taken Unknown] multivitamin no.47-iron fum 27 mg-folate no.1 1 mg-dha 300 mg capsule (PNV-DHA) cap PO 11/04/22 [History Last Taken Unknown] sertraline 50 mg tablet (Zoloft) 50 mg PO DAILY 11/04/22 [History Last Taken Unknown] blood sugar diagnostic (Accutrend Glucose test strips) #50 ea 11/15/22 [Rx Last Taken Unknown] blood-glucose meter #1 ea 11/15/22 [Rx Last Taken Unknown] lancets #100 ea 11/15/22 [Rx Last Taken Unknown] aspirin 81 mg tablet,delayed release 81 mg PO DAILY 11/21/22 [History Last Taken Unknown] ondansetron HCl 4 mg tablet 4 mg PO Q4H #60 tabs 11/21/22 [Rx Last Taken Unknown] metformin 1,000 mg tablet 1,000 mg PO BID #60 tabs 12/14/22 [Rx Last Taken Unknown] albuterol sulfate 90 mcg/actuation aerosol inhaler (Ventolin HFA) 1 - 2 puff inhalation Q4H PRN PRN Wheezing ##1 01/22/23 [Rx Last Taken Unknown] dextromethorphan-guaifenesin ER 60 mg-1,200 mg tab,extend release,12hr (Mucinex DM) 1 tab PO Q12H #20 tabs 01/22/23 [Rx Last Taken Unknown] Allergy/AdvReac Type Severity Reaction Status Date / Time No Known Allergies Allergy Verified 01/22/23 11:18 Family History Mother Fibroids DVT (deep venous thrombosis) Grandmother Diabetes Aunt Diabetes Surgical History cornea cross linking Eye abnormalities H/O colonoscopy H/O endoscopy H/O laparoscopy Hernia Hx of dilation and curettage [place] teeth extracted Social History adopted: Yes (adopted by step father) household members: spouse and other details: brother housing: house number of children: 0 current occupational status: 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 current occupational exposures/hazards: No pets and animals: Yes (Not managing litterbox) pets and animals: cat(s) and dog(s) history of recent travel: No sexually active: Yes Smoking Status: Never smoker Electronic Cigarette Use: not used second hand exposure: No alcohol intake: former details: not while substance use type: does not use well-balanced diet: daily or most days caffeine: No eating out: 1-3 times/week during the past year weight has: increased > 10 lbs what type of physical activity do you participate in: none roshni/religious: Episcopalian seatbelt use: always do you feel safe at home: Yes additional social history: [employer]aker [employer]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 Parents passed from covid 1 week apart- card sent ROS [facility] ED Constitutional Constitutional ED: Reports fever(s); Denies chills Eyes Eyes: Denies blurry vision or change in vision ENT ENT ED: Reports rhinorrhea; Denies sore throat Cardiovascular Cardiovascular: Reports chest pain; Denies palpitations Respiratory/Chest Respiratory/Chest: Reports cough and dyspnea Gastrointestinal Gastrointestinal: Denies nausea or vomiting Genitourinary Genitourinary ED: Denies dysuria or hematuria Musculoskeletal Musculoskeletal: Reports back pain and myalgias; Denies neck pain Integumentary Denies abscess or rash Neurologic Neurologic: Denies headache(s) or weakness Allergic/Immunologic Allergic/Immunologic ED: Denies mouth swelling or urticaria EXAM Physical Exam Const Vital Signs: 01/22/23 11:18 Temperature 97.0 F L Temperature Source Temporal Pulse Rate 108 H Respiratory Rate 28 H Blood Pressure 171/89 H Blood Pressure Mean 116 Pulse Ox 100 Oxygen Delivery Method Room Air Positive well nourished, well developed and obese General Appearance ED: well developed and NAD Nutritional Appearance: obese HEENT Reports moist mucous membranes Neck supple and no JVD Resp normal respiratory effort Auscultation: rhonchi Cardio regular rate, regular rhythm and no murmurs GI normal to inspection, nondistended, normoactive bowel sounds and non-tender Palpation: soft Extremity normal to inspection General Extremety ED: Negative for edema or tenderness General Extremity: Negative for edema Neuro oriented x3, CN's II-XII intact bilaterally and no sensory deficits noted Sensorium / Orientation: alert Motor Exam: strength 5/5 throughout Psych mental status grossly normal Skin no rashes or lesions noted MDM MDM MDM Narrative Medical decision making narrative: Differential diagnosis includes PE, COVID-19 pneumonia, bacterial pneumonia, preeclampsia, and reactive airway disease. CTA of the chest will be obtained to assess for pulmonary embolism and pneumonia. CBC will be obtained to assess for leukocytosis and anemia. Comprehensive metabolic profile will be obtained to assess for renal function, hepatic function, and electrolyte abnormality. Urinalysis will be obtained to assess for urinary tract infection. Lab Data Attestation: I reviewed the patient's lab results. Lab results narrative: CBC shows a mild anemia with a hemoglobin of 10.8 and hematocrit 33.8. These are stable compared to previous results. Comprehensive metabolic profile was reviewed and was within normal limits. Glucose was 116. Urinalysis was reviewed. There is no evidence of urinary tract infection. Quantitative hCG was reviewed and was 11,391. Labs: Laboratory Results - last 24 hr 01/22/23 01/22/23 01/22/23 11:30 11:50 11:50 WBC 8.7 RBC 3.72 L Hgb 10.8 L Hct 33.8 L MCV 90.9 MCH 29.0 MCHC 32.0 RDW Std Deviation 48.7 H RDW Coeff of Cat 14.7 H Plt Count 362 MPV 9.2 Immature Gran % (Auto) 1.300 H Neut % (Auto) 72.8 H Lymph % (Auto) 19.9 [place] % (Auto) 3.6 Eos % (Auto) 2.1 Baso % (Auto) 0.3 Absolute Neuts (auto) 6.4 Absolute Lymphs (auto) 1.74 Nucleated RBC % 0 Sodium 139 Potassium 3.8 Chloride 105 Carbon Dioxide 24.0 Anion Gap 10 BUN 12 Creatinine 0.62 Estim Creat Clear Calc 99.21 Est GFR (MDRD) Af Amer 143 Est GFR (MDRD) Non-Af 118 BUN/Creatinine Ratio 19.2 Glucose 116 H Calcium 9.4 Total Bilirubin 0.20 AST 18 ALT 24 Alkaline Phosphatase 75 Total Protein 7.3 Albumin 3.0 L Globulin 4.3 H Albumin/Globulin Ratio 0.7 L HCG, Quant Urine Color Yellow Urine Clarity Clear Urine pH 5.0 Ur Specific [place] 1.025 Urine Protein 15 H Urine Glucose (UA) Normal Urine Ketones 15 H Urine Occult Blood 10 H Urine Nitrite Negative Urine Bilirubin Negative Urine Urobilinogen Normal Ur Leukocyte Esterase Negative Urine RBC 0 SEEN Urine WBC 0-5 SEEN Ur Squamous Epith Cells 5-10 SEEN Urine Bacteria 1+ Urine Mucus 0 SEEN 01/22/23 11:50 WBC RBC Hgb Hct MCV MCH MCHC RDW Std Deviation RDW Coeff of Cat Plt Count MPV Immature Gran % (Auto) Neut % (Auto) Lymph % (Auto) [place] % (Auto) Eos % (Auto) Baso % (Auto) Absolute Neuts (auto) Absolute Lymphs (auto) Nucleated RBC % Sodium Potassium Chloride Carbon Dioxide Anion Gap BUN Creatinine Estim Creat Clear Calc Est GFR (MDRD) Af Amer Est GFR (MDRD) Non-Af BUN/Creatinine Ratio Glucose Calcium Total Bilirubin AST ALT Alkaline Phosphatase Total Protein Albumin Globulin Albumin/Globulin Ratio HCG, Quant 08934 H Urine Color Urine Clarity Urine pH Ur Specific [place] Urine Protein Urine Glucose (UA) Urine Ketones Urine Occult Blood Urine Nitrite Urine Bilirubin Urine Urobilinogen Ur Leukocyte Esterase Urine RBC Urine WBC Ur Squamous Epith Cells Urine Bacteria Urine Mucus Radiography Diagnostic Testing: Clinical Impression(s) from Imaging Studies Chest CTA 01/22/23 11:40 IMPRESSION: 1. Normal enhancement of the main pulmonary artery and right and left pulmonary arteries. There is limited enhancement of the bilateral peripheral pulmonary arteries. There is no demonstrated pulmonary embolism. 2. No demonstrated aortic aneurysm or dissection. Electronically Signed: Morales Maldonado MD at 12:48 EDT Reading Location ID and State: [facility] / [place] , Service support , CTA of the chest was obtained. There is no evidence of pulmonary embolism or aortic dissection. This was interpreted by the radiologist and was also independently reviewed by myself. Treatment and Re-Evaluation :: Patient's blood pressure improved without any medications. Patient is resting comfortably on reevaluation. Case was discussed with Dr. Elaine Fine. She recommended obtaining heart tones. These will be obtained. She will follow-up with the patient as an outpatient. Patient was given a prescription for Mucinex DM. Patient was also given a prescription for an albuterol inhaler. Patient was instructed to follow-up with her primary care physician in 5 to 7 days as well. Patient understood and was agreeable with the plan. All questions were answered. Discharge Plan Triage Chief Complaint: Shortness of Breath ED Provider: Octavio Kerr Dx/Rx/DC Orders Clinical Impression: Dyspnea, Factor V Leiden, , COVID-19 affecting in second trimester Instructions: ED Dyspnea Prescriptions: New albuterol sulfate [Ventolin HFA] 90 mcg/actuation HFA aerosol inhaler 1 - 2 puff inhalation Q4H PRN PRN (Reason: Wheezing) Qty: 1 0RF dextromethorphan-guaifenesin [Mucinex DM] 60-1,200 mg tablet extended release 12 hr 1 tab PO Q12H Qty: 20 0RF No Action loratadine [Claritin] 10 mg tablet 10 mg PO DAILY diphenhydramine HCl [Benadryl] 25 mg capsule 25 mg PO QHS PRN PNV-DHA 27 mg iron-1 mg -300 mg capsule PO sertraline [Zoloft] 50 mg tablet 50 mg PO DAILY enoxaparin 40 mg/0.4 mL syringe 40 mg subcut DAILY aspirin 81 mg tablet,delayed release (DR/EC) 81 mg PO DAILY ondansetron HCl 4 mg tablet 4 mg PO Q4H Qty: 60 3RF labetalol 100 mg tablet 100 mg PO BID Qty: 60 0RF (DME) blood-glucose meter Misc See Rx Instructions .MEDSUPPLY Qty: 1 0RF Rx Instructions: As directed- Test fasting and 2 hours after meals (DME) lancets Misc See Rx Instructions .MEDSUPPLY Qty: 100 10RF Rx Instructions: As directed test fasting and 2 hours pp(4 times per day) (DME) Accutrend Glucose test strips Strip See Rx Instructions .Route Qty: 50 12RF Rx Instructions: As directed test fasting and 2 hours pp(4 times per day) metformin 1,000 mg tablet 1,000 mg PO BID Qty: 60 4RF Primary Care Provider: Antwon Rodríguez Referrals: Antwon Rodríguez DO [Primary Care Provider] - 5-7 Days Elaine Fine MD [Med Staff - Active Staff] - 3-5 Days Disposition Disposition: Home, Self Care
--- NOTE | 2023-01-22 11:40 | CT_ITS ---
STUDY: CTA CHEST REASON FOR EXAM: Female, 32 years old. Dyspnea -- Shield abdomen RADIATION DOSAGE (If Supplied By Facility): CTDIvol = ( 16.22 ) mGy, DLP = ( 570.72 ) mGycm TECHNIQUE: The examination was performed with the intravenous administration of IV 100mL Isovue-370. Post-processing of the angiographic images was performed, with multiplanar reformation and 3D reconstruction. Mild motion artifact is present. Individualized dose optimization techniques were used for this CT. COMPARISON: CTA of the chest dated January 07, 2022 FINDINGS: Normal enhancement of the main pulmonary artery and right and left pulmonary arteries. There is limited enhancement of the bilateral peripheral pulmonary arteries. There is no demonstrated pulmonary embolism. Normal thoracic aorta and visualized great vessels. There is no demonstrated aortic dissection. Normal heart and pericardium. There are no demonstrated calcifications of the coronary arteries. Normal mediastinum. Normal hilar regions. Normal visualized trachea and bronchi. The lungs are well expanded. Normal pulmonary parenchyma. Normal pleura. Normal chest wall structures. There is S-shaped scoliosis of the spine. Normal visualized upper abdomen. CT/CTA Chest W/WO Contrast IMPRESSION: 1. Normal enhancement of the main pulmonary artery and right and left pulmonary arteries. There is limited enhancement of the bilateral peripheral pulmonary arteries. There is no demonstrated pulmonary embolism. 2. No demonstrated aortic aneurysm or dissection. Electronically Signed: Morales Maldonado MD at 12:48 EDT ,
[2023-01-22 11:57] LABS: Absolute Lymphocyte Count 1.74 X10^3/uL (0.83-4.51); Absolute Neutrophil Count 6.4 X10^3/uL (2.0-7.7); Basophil# 0.03 X10^3/uL; Basophil% 0.3 % (0-1); Eosinophil# 0.18 X10^3/uL; Eosinophils% 2.1 % (0-5); Hematocrit 33.8 % (37-47); Hemoglobin 10.8 g/dL (12.0-15.0); Lymphocyte # 1.74 X10^3/ul (0.83-4.51); Lymphocyte % 19.9 % (19-41); Mean Corpuscular Volume 90.9 fL (81-99); Mean Platelet Vol. 9.2 fl (6.2-12.0); Monocyte# 0.31 X10^3/uL; Monocyte% 3.6 % (0-10); NRBC Flagged by Analyzer 0 % (0-5); Neutrophil # 6.36 X10^3/uL (2.7-7.7); Neutrophil % 72.8 % (47-70); Platelet Count 362 K/mm3 (150-450); RBC Distribution Width CV 14.7 % (11.6-14.6); RBC Distribution Width SD 48.7 fl (35.1-43.9); Red Blood Count 3.72 M/mm3 (4.2-5.4); White Blood Count 8.7 K/mm3 (4.4-11.0)
[2023-01-22 12:01] LABS: Mucous, Urine 0 SEEN /hpf (<or=2+); Red Blood Cells-Urine 0 SEEN /hpf (0-5)
[2023-01-22 12:10] LABS: ALB/GLOB Ratio 0.7 RATIO (0.9-2.4); AST(SGOT) 18 U/L (15-37); Alanine Aminotransfer ALT/SGPT 24 U/L (13-56); Alkaline Phosphatase 75 U/L (45-117); Anion Gap 10 (5-15); BUN 12 mg/dL (7-18); BUN/Creat Ratio 19.2 RATIO (10-20); Calcium,Total 9.4 mg/dL (8.5-10.1); Chloride 105 mmol/L (98-107); Creatinine, Serum 0.62 mg/dL (0.55-1.02); EST Glomerular Filtration Rate 118 mL/min (>60); Est Glom Filt Rate - Afr Amer 143 mL/min (>60); Estimated Creatinine Clearance 99.21 ml/min; Globulin 4.3 g/dL (2.2-4.2); Glucose 116 mg/dL (74-106); Potassium 3.8 mmol/L (3.5-5.1); Protein, Total 7.3 g/dL (6.4-8.2); Sodium Level 139 mmol/L (136-145)
[2023-01-22 12:15] LABS: Color, Urine Yellow (Yellow); Glucose, Dipstick Normal (Normal); Ketone-Dipstick 15 mg/dl (Negative); Leukocyte Esterase-Dipstick Negative /ul (Negative); Nitrite-Dipstick Negative (Negative); Occult Blood-Urine 10 /ul (Negative); Protein-Dipstick 15 mg/dl (Negative); Specific Gravity, Urine 1.025 (1.002-1.030); Urine Bilirubin Dipstick Negative (Negative); Urine Clarity Clear (Clear); Urine Urobilinogen Normal (Normal)
[2023-01-22 12:28] LABS: hCG Titer Quant., Serum 11391 mIU/mL (1-3)
[2023-01-22 12:29] LABS: Bacteria 1+ /hpf (None Seen); Squamous Epithelial Cells - UA 5-10 SEEN /hpf (5-10); White Blood Cells 0-5 SEEN /hpf (0-5)
[2023-01-22 13:23] VITALS: BP 134/87; PULSE 72; RESP 16; O2SAT 98
== END 2023-01-22 13:24 | disposition home or self-care (01) ==
PROVIDERS: Emergency Provider Emergency Medicine; PCP Family Medicine; Visit Provider Emergency Medicine
DX: O99.891 Other specified diseases and conditions complicating pregnancy (principal); D68.51 Activated protein C resistance; O99.112 Other diseases of the blood and blood-forming organs and certain disorders involving the immune mechanism complicating pregnancy, second trimester; O98.512 Other viral diseases complicating pregnancy, second trimester; O99.212 Obesity complicating pregnancy, second trimester; O99.352 Diseases of the nervous system complicating pregnancy, second trimester; U07.1 COVID-19; R06.00 Dyspnea, unspecified; G47.30 Sleep apnea, unspecified; Z3A.00 Weeks of gestation of pregnancy not specified
CPT/HCPCS: 71275; 80053; 81001; 84702; 85025; 99284; Q9967

== ENCOUNTER → 2023-02-15 | Outpatient (CLI) | payer BC, SELFPAY ==
[2023-02-15 12:47] LABS: Absolute Lymphocyte Count 1.53 X10^3/uL (0.83-4.51); Absolute Neutrophil Count 8.3 X10^3/uL (2.0-7.7); Basophil# 0.04 X10^3/uL; Basophil% 0.4 % (0-1); Eosinophil# 0.17 X10^3/uL; Eosinophils% 1.6 % (0-5); Hematocrit 33.5 % (37-47); Hemoglobin 10.4 g/dL (12.0-15.0); Lymphocyte # 1.53 X10^3/ul (0.83-4.51); Lymphocyte % 14.1 % (19-41); Mean Corpuscular Volume 90.1 fL (81-99); Mean Platelet Vol. 9.8 fl (6.2-12.0); Monocyte# 0.65 X10^3/uL; NRBC Flagged by Analyzer 0 % (0-5); Neutrophil # 8.27 X10^3/uL (2.7-7.7); Neutrophil % 76.3 % (47-70); Platelet Count 380 K/mm3 (150-450); RBC Distribution Width CV 15.4 % (11.6-14.6); RBC Distribution Width SD 50.1 fl (35.1-43.9); Red Blood Count 3.72 M/mm3 (4.2-5.4); White Blood Count 10.8 K/mm3 (4.4-11.0)
[2023-02-15 13:49] LABS: HIV - WCH Non-Reactive (Nonreactive); Syphilis Antibodies Non-reactive
== END | disposition home or self-care (01) ==
LOC: LAB 12:15
PROVIDERS: PCP Family Medicine; Referring Provider Obstetrics & Gynecology; Visit Provider Obstetrics & Gynecology
DX: O09.90 Supervision of high risk pregnancy, unspecified, unspecified trimester (principal); Z3A.00 Weeks of gestation of pregnancy not specified
CPT/HCPCS: 36415; 85025; 86703; 86780

== ENCOUNTER 2023-03-13 19:15 | Outpatient (CLI) | payer BC, SELFPAY ==
[2023-03-13 19:34] VITALS: BMI 44.9
[2023-03-13 19:50] VITALS: BP 143/68; PULSE 110; TEMP 37.6; O2SAT 99
[2023-03-13 20:05] VITALS: BP 146/73; PULSE 106
[2023-03-13] MEDS: 0.9% Saline Lock 10 ML Syringe IV (20:05)
[2023-03-13 20:15] LABS: Hematocrit 33.8 % (37-47); Hemoglobin 10.2 g/dL (12.0-15.0); Mean Corp Hgb Conc 30.2 g/dL (32-36); Mean Corpuscular Hgb 28.5 pg (27.0-32.0); Mean Corpuscular Volume 94.4 fL (81-99); Mean Platelet Vol. 9.8 fl (6.2-12.0); Platelet Count 337 K/mm3 (150-450); RBC Distribution Width CV 15.8 % (11.6-14.6); RBC Distribution Width SD 54.3 fl (35.1-43.9); Red Blood Count 3.58 M/mm3 (4.2-5.4); White Blood Count 9.8 K/mm3 (4.4-11.0)
[2023-03-13 20:20] VITALS: BP 144/67; PULSE 103
[2023-03-13 20:29] LABS: AST(SGOT) 14 U/L (15-37); Alanine Aminotransfer ALT/SGPT 15 U/L (13-56); Creatinine, Serum 0.54 mg/dL (0.55-1.02); EST Glomerular Filtration Rate 139 mL/min (>60); Est Glom Filt Rate - Afr Amer 168 mL/min (>60); Estimated Creatinine Clearance 113.91 ml/min
[2023-03-13 20:36] VITALS: BP 126/59; PULSE 104
[2023-03-13 20:40] LABS: Protein, Urine (Random) < 6.0 mg/dL (<11.9)
[2023-03-13 20:50] VITALS: BP 133/60; PULSE 105
[2023-03-13 21:05] VITALS: BP 139/65; PULSE 102
--- NOTE | 2023-03-13 21:10 | OB.TRI.HP_ITS ---
HPI - General HPI Narrative KOMAL ENCARNACION, is a 32 F who presents at 28weeks with elevated blood pressures at home 140-160s/90s, patient complains of headache with did improve with tylenol Endorses movement. Denies contractions, leaking of fluid, vaginal bleeding. has been complete by chronic hypertension that was treated with labetalol 100 mg twice daily this dose was decreased due to seeing sugars continue 22-week Presents to [facility] for preeclamptic work-up. Maternal Data Information FANI Calculator Estimated Delivery Date Method Current WG Current Estimate 06/02/23 Manual 28w 3d PFSH PFSH Medical History Congenital adrenal hyperplasia Factor V Leiden Hx of recurrent urinary tract infection Hypertension PCOS (polycystic ovarian syndrome) Sleep apnea Home Medications diphenhydramine HCl 25 mg capsule (Benadryl) 25 mg PO QHS PRN sleep and allergies 04/08/22 [History Last Taken 03/12/23 21:00] loratadine 10 mg tablet (Claritin) 10 mg PO DAILY 04/08/22 [History Last Taken 03/13/23 08:00] enoxaparin 40 mg/0.4 mL subcutaneous syringe 40 mg subcut DAILY 11/04/22 [History Last Taken 03/12/23 21:00] multivitamin no.47-iron fum 27 mg-folate no.1 1 mg-dha 300 mg capsule (PNV-DHA) 1 cap PO DAILY 11/04/22 [History Last Taken 03/12/23 21:00] sertraline 50 mg tablet (Zoloft) 50 mg PO DAILY 11/04/22 [History Last Taken 03/12/23 21:00] blood sugar diagnostic (Accutrend Glucose test strips) #50 ea 11/15/22 [Rx Last Taken Unknown] blood-glucose meter #1 ea 11/15/22 [Rx Last Taken Unknown] lancets #100 ea 11/15/22 [Rx Last Taken Unknown] aspirin 81 mg tablet,delayed release 81 mg PO DAILY 11/21/22 [History Last Taken 03/12/23 21:00] ondansetron HCl 4 mg tablet 4 mg PO Q4H #60 tabs 11/21/22 [Rx Last Taken 03/13/23 13:00] metformin 1,000 mg tablet 1,000 mg PO BID #60 tabs 12/14/22 [Rx Last Taken 03/13/23 08:00] albuterol sulfate 90 mcg/actuation aerosol inhaler (Ventolin HFA) 1 - 2 puff inhalation Q4H PRN PRN Wheezing ##1 01/22/23 [Rx Last Taken Unknown] acetaminophen 325 mg tablet (Tylenol) 1,000 mg PO PRN PRN Pain 03/13/23 [History Last Taken 03/13/23 18:00] dextromethorphan-guaifenesin ER 60 mg-1,200 mg tab,extend release,12hr 1 tab PO PRN PRN pt had covid in 03/13/23 [History Last Taken Unknown] ferrous sulfate 325 mg (65 mg iron) tablet (iron) 325 mg PO DAILY 03/13/23 [History Last Taken 03/13/23 08:00] insulin NPH isoph U-100 human 100 unit/mL subcutaneous suspension 22 unit subcut QHS 03/13/23 [History Last Taken Unknown] Allergy/AdvReac Type Severity Reaction Status Date / Time No Known Allergies Allergy Verified 03/13/23 20:13 Family History Mother Fibroids DVT (deep venous thrombosis) Grandmother Diabetes Aunt Diabetes Surgical History cornea cross linking Eye abnormalities H/O colonoscopy H/O endoscopy H/O laparoscopy Hernia Hx of dilation and curettage [place] teeth extracted Social History adopted: Yes (adopted by step father) household members: spouse and other details: brother housing: house number of children: 0 current occupational status: 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 current occupational exposures/hazards: No pets and animals: Yes (Not managing litterbox) pets and animals: cat(s) and dog(s) history of recent travel: No sexually active: Yes Smoking Status: Never smoker Electronic Cigarette Use: not used second hand exposure: No alcohol intake: former details: not while substance use type: does not use well-balanced diet: daily or most days caffeine: No eating out: 1-3 times/week during the past year weight has: increased > 10 lbs what type of physical activity do you participate in: none roshni/episcopal: Holiness seatbelt use: always do you feel safe at home: Yes additional social history: [employer]ok[employer]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 Date Name GA/Weeks Outcome Route Bth Weight Gen Labor Lgth Anesthesia Del Locatn Provider FOB 12/28/21 miscarriage 5w5d 06/12/22 miscarriage 7w2d Visit Details Expected Delivery Route/Plan Labor Preferences- CB/BF classes: [] labor support person: [] labor intervention preferences: [] pain management options preferred: [] cut cord/dad catch: [] : [] PP control planned: [] discussed possible routes of delivery and associated risks: [] special requests: [] Plans Covid status: [] Flu vaccine: [] Tdap vaccine: [] Rhogam: [] LARC form signed: [] Problem list reviewed and updated with the most current plan of care details and appropriate orders placed. Relevant counseling for the gestational age provided. Continue routine care and follow up unless otherwise noted in visit notes/problem list details OB Flowsheet Initial Weight: Not Recorded Date -?-?-?-?-?-?-?-?-?-?-?-?- EGA Weight BP Urine Prot -?-?-?-?-?-?-?-?-?-?-?-?- Glucose FHR FuHt Pres Dilation -?-?-?-?-?-?-?-?-?-?-?-?- Effaced St Visit Note 11/04/22 -?-?-?-?-?-?-?-?-?-?-?-?- 10w 0d 254 lb 2 oz 140/81 -?-?-?-?-?-?-?-?-?-?-?-?- 160 -?-?-?-?-?-?-?-?-?-?-?-?- SM- no vb crmapi ng, transfer from [facility], on estradiol and lovenox still per [facility], has family history of DVT under 50 so recommend lovenox prophylaxis in . obtain MFM consult for CAH. 11/21/22 -?-?-?-?-?-?-?-?-?-?-?-?- 12w 3d 255 lb 2 oz 140/93 Nega tive -?-?-?-?-?-?-?-?-?-?-?-?- Negative 160 -?-?-?-?-?-?-?-?-?-?-?-?- SM- needing some zofran. SM- needing some zofran.saw consult with mfm doing well, bs around goal 12/12/22 -?-?-?-?-?-?-?-?-?-?-?-?- 15w 3d 246 lb 8 oz 144/82 Nega tive -?-?-?-?-?-?-?-?-?-?-?-?- Negative 150 -?-?-?-?-?-?-?-?-?-?-?-?- SM- no vb crampi ng started on insulin 01/02/23 -?-?-?-?-?-?-?-?-?-?-?-?- 18w 3d 242 lb 8 oz 124/61 -?-?-?-?-?-?-?-?-?-?-?-?- 150 -?-?-?-?-?-?-?-?-?-?-?-?- SM- no vb lof go od fm having some episodes of fatigue. 01/26/23 -?-?-?-?-?-?-?-?-?-?-?-?- 21w 6d 241 lb 8 oz 120/71 Nega tive -?-?-?-?-?-?-?-?-?-?-?-?- Negative 135 -?-?-?-?-?-?-?-?-?-?-?-?- JV- has echo reggie orrow. normal glucose levels followed by mfm. echo next week. some cramping, no lof, vaginal bleeding,and + fm. 02/15/23 -?-?-?-?-?-?-?-?-?-?-?-?- 24w 5d 237 lb 8 oz 118/75 Nega tive -?-?-?-?-?-?-?-?-?-?-?-?- Negative 135 26 -?-?-?-?-?-?-?-?-?-?-?-?- JV- no lof vagin al bleeding or dec fm. start testing at 32 weeks twice weekly wants to switch to Dr. Ambriz for endo. nl echo and anatomy Physical Exam Const alert and no apparent distress Neck full ROM Resp normal respiratory effort and normal air movement Cardio regular rate Narrative: gravid Uterus Palpation: Negative for uterus tender Extremity normal to inspection, full ROM and no calf tenderness Peripheral Pulses: Yes pulses 2+ throughout Neuro Motor Exam: strength 5/5 throughout Deep Tendon Reflexes: Rt Patellar (L4): 2+ and Lt Patellar (L4): 2+ Psych mental status grossly normal NST FHR Rate Baby A Baseline: 135 Variability:: Moderate Accelerations:: 10 x 10 Decelerations:: None NST Reactive:: Yes FHR Category:: Category I Uterine Activity:: no contractions Assessment & Plan (1) Hypertension affecting : COMMENT: labetalol. EKG ordered. baseline cmp and urine pr cr ratio. PLAN: restarted on labetalol 100mg BID 03/13/2023 (2) Modified White class B pregestational diabetes mellitus: COMMENT: MFM cocare MFM managing. metformin and insulin. PLAN: increase insulin 10% 03/13/2023-03/16/2023 for steroid coverage (3) Obesity affecting : COMMENT: 1 TM GCT (4) Factor V Leiden: COMMENT: KYLER VELASQUEZ notified. hetero. lovenox 40 daily plan in due to family history and will give PP if she has a cs. (5) Conceived by in vitro fertilization: COMMENT: Transfer 09/15/22, Confirmed 09/26/22,on lovenox, estradiol, metformin per [facility], discontinue per their reocmmendations. (6) Grief associated with loss of fetus: COMMENT: sees counselor (7) Anxiety: COMMENT: sees counselor (8) Supervision of high risk , antepartum: COMMENT: PRR ,FANI 06/02/23 Ashok (9) : QUALIFIERS: Weeks of gestation: 21 weeks Qualified Code(s): Z3A.21 - 21 weeks gestation of COMMENT: anatomy nl, normal echo, declined carrier testing. nl NT. afp neg. (10) Congenital adrenal hyperplasia: COMMENT: diagnosed by [facility]. S/P MFM consult for management. plan steroids for l and d, MFM cocare for PLAN: steroids started 03/13/2023, to return to on 03/14/2023 for second dose. PLAN: Plan Patient presents for triage evaluation secondary to hypertension. negative work up for PEC. FHT: Moderate variability reactive no decelerations category I tracing [place]: Contractions Assessment and plan: Reactive NST, reassuring maternal and status patient discharged to home to follow-up in office in AM. See problem list details for additional plan information. consulted with on management for BP, diabetes and status. to resume labetolol 100mg BID, betamethasone 12mg x2 q24 hours, increase NPH 10% to 24u for the next 3 -4days. Charges/Coding Visit Charges Office Visits / Consults: 64028 OV L3 Est Procedures Urinary/Genital [id number]: [id number] non-stress test Interp
[2023-03-13] MEDS: Labetalol 100 MG Tablet PO (21:19)
[2023-03-13] MEDS: Betamethasone/Betamethasone 30 MG/5 ML Vial 12 MG IM (21:20)
[2023-03-13] MEDS: Insulin NPH Human 100 UNITS/ML PEN 24 UNITS SC (21:40)
[2023-03-13 21:45] LABS: Bedside Glucose 88 mg/dL (74-106)
== END 2023-03-13 22:10 | disposition home or self-care (01) ==
LOC: WPOUT 19:23 → WP 19:23
PROVIDERS: PCP Family Medicine; Referring Provider Registered Nurse; Visit Provider Registered Nurse
DX: O16.3 Unspecified maternal hypertension, third trimester (principal); E25.0 Congenital adrenogenital disorders associated with enzyme deficiency; D68.51 Activated protein C resistance; O24.113 Pre-existing type 2 diabetes mellitus, in pregnancy, third trimester; O99.214 Obesity complicating childbirth; O99.113 Other diseases of the blood and blood-forming organs and certain disorders involving the immune mechanism complicating pregnancy, third trimester; O99.343 Other mental disorders complicating pregnancy, third trimester; O99.283 Endocrine, nutritional and metabolic diseases complicating pregnancy, third trimester; E66.9 Obesity, unspecified; F41.9 Anxiety disorder, unspecified; Z79.82 Long term (current) use of aspirin; Z79.899 Other long term (current) drug therapy; Z79.84 Long term (current) use of oral hypoglycemic drugs; Z3A.28 28 weeks gestation of pregnancy
CPT/HCPCS: 59025; 59050; 82565; 82570; 82962; 84156; 84450; 84460; 84550; 85027; 99221; A4216; G0378; J0702

== ENCOUNTER 2023-03-14 11:21 | Emergency (ER) | payer BC, SELFPAY ==
[2023-03-14 11:23] VITALS: BP 145/86; PULSE 131; RESP 26; TEMP 36.8; O2SAT 98; BMI 44.1
--- NOTE | 2023-03-14 11:40 | EKG12_ITS ---
Test Reason : PALPS Blood Pressure : / mmHG Vent. Rate : 116 BPM Atrial Rate : 116 BPM P-R Int : 146 ms QRS Dur : 084 ms QT Int : 348 ms P-R-T Axes : 054 054 004 degrees QTc Int : 483 ms Sinus tachycardia Otherwise normal ECG Confirmed by RONALD VELASQUEZ, YAEL ([id number]), legal editor YEIMY CELESTE ([id number]) on 03/15/2023 12:54:28 P M Referred By: Tiana Brito Confirmed By:FAMILIA CARDENAS MD
[2023-03-14 11:47] VITALS: BP 141/73; PULSE 116; PULSE 117; RESP 23; RESP 31; TEMP 36.8
--- NOTE | 2023-03-14 11:55 | EDS_ITS ---
HPI History of Present Illness Chief Complaint: Palpitations Informant: patient Onset/Context/Timing Onset: Days Context: Gradual Onset Timing: Intermittent Current Severity: Mild Maximum Severity: Mild Narrative Narrative: 32-year-old female currently 28 weeks 4 days . G3, P0 Ab2 with is being miscarriages. Currently under the care of Dr. Elaine Fine of [facility]. Patient has extensive past medical history of insulin-dependent diabetes, hypertension and factor V Leiden on Lovenox but has never had a blood clot before. Mom has a family history. Patient was seen and evaluated in labor and delivery last night. She had unremarkable labs and negative preeclampsia work- up. She was stating that she does not feel quite well and has accelerated heart rate at times. No chest pain. No hemoptysis. Not short of breath lying in bed. No fever. No dysuria. She has had morning sickness with her but is better controlled the last several days. Prior similar symptoms: Yes Recent Illness/Hospitalization: Yes [facility] Medical History Congenital adrenal hyperplasia Factor V Leiden Hx of recurrent urinary tract infection Hypertension PCOS (polycystic ovarian syndrome) Sleep apnea Home Medications diphenhydramine HCl 25 mg capsule (Benadryl) 25 mg PO QHS PRN sleep and allergies 04/08/22 [History Last Taken 03/12/23 21:00] loratadine 10 mg tablet (Claritin) 10 mg PO DAILY 04/08/22 [History Last Taken 03/13/23 08:00] enoxaparin 40 mg/0.4 mL subcutaneous syringe 40 mg subcut DAILY 11/04/22 [History Last Taken 03/12/23 21:00] multivitamin no.47-iron fum 27 mg-folate no.1 1 mg-dha 300 mg capsule (PNV-DHA) 1 cap PO DAILY 11/04/22 [History Last Taken 03/12/23 21:00] sertraline 50 mg tablet (Zoloft) 50 mg PO DAILY 11/04/22 [History Last Taken 03/12/23 21:00] blood sugar diagnostic (Accutrend Glucose test strips) #50 ea 11/15/22 [Rx Last Taken Unknown] blood-glucose meter #1 ea 11/15/22 [Rx Last Taken Unknown] lancets #100 ea 11/15/22 [Rx Last Taken Unknown] aspirin 81 mg tablet,delayed release 81 mg PO DAILY 11/21/22 [History Last Taken 03/12/23 21:00] ondansetron HCl 4 mg tablet 4 mg PO Q4H #60 tabs 11/21/22 [Rx Last Taken 03/13/23 13:00] metformin 1,000 mg tablet 1,000 mg PO BID #60 tabs 12/14/22 [Rx Last Taken 03/13/23 08:00] albuterol sulfate 90 mcg/actuation aerosol inhaler (Ventolin HFA) 1 - 2 puff inhalation Q4H PRN PRN Wheezing ##1 01/22/23 [Rx Last Taken Unknown] acetaminophen 325 mg tablet (Tylenol) 1,000 mg PO PRN PRN Pain 03/13/23 [History Last Taken 03/13/23 18:00] dextromethorphan-guaifenesin ER 60 mg-1,200 mg tab,extend release,12hr 1 tab PO PRN PRN pt had covid in 03/13/23 [History Last Taken Unknown] ferrous sulfate 325 mg (65 mg iron) tablet (iron) 325 mg PO DAILY 03/13/23 [History Last Taken 03/13/23 08:00] insulin NPH isoph U-100 human 100 unit/mL subcutaneous suspension 22 unit subcut QHS 03/13/23 [History Last Taken Unknown] blood-glucose meter,continuous (Dexcom [address] [employer]or) #4 ea 03/14/23 [Rx Last Taken Unknown] insulin lispro 100 unit/mL subcutaneous pen (Humalog KwikPen (U-100) Insulin) 1 sliding scale dose subcut USEASDIRECTD #15 mL 03/14/23 [Rx Last Taken Unknown] Allergy/AdvReac Type Severity Reaction Status Date / Time No Known Allergies Allergy Verified 03/14/23 11:57 Family History Mother Fibroids DVT (deep venous thrombosis) Grandmother Diabetes Aunt Diabetes Surgical History cornea cross linking Eye abnormalities H/O colonoscopy H/O endoscopy H/O laparoscopy Hernia Hx of dilation and curettage [place] teeth extracted Social History adopted: Yes (adopted by step father) household members: spouse and other details: brother housing: house number of children: 0 current occupational status: 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 current occupational exposures/hazards: No pets and animals: Yes (Not managing litterbox) pets and animals: cat(s) and dog(s) history of recent travel: No sexually active: Yes Smoking Status: Never smoker Electronic Cigarette Use: not used second hand exposure: No alcohol intake: former details: not while substance use type: does not use well-balanced diet: daily or most days caffeine: No eating out: 1-3 times/week during the past year weight has: increased > 10 lbs what type of physical activity do you participate in: none roshni/bahai: Yarsanism seatbelt use: always do you feel safe at home: Yes 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 Remittent nausea and vomiting. Review of Systems ROS Unobtainable: Denies due to encephalopathy Constitutional Constitutional ED: Denies chills or fever(s) Eyes Eyes: Denies blurry vision ENT ENT ED: Denies ear pain Cardiovascular Cardiovascular: Denies chest pain Respiratory/Chest Respiratory/Chest: Denies cough or dyspnea Gastrointestinal Gastrointestinal: Reports nausea and vomiting; Denies abdominal pain Genitourinary Genitourinary ED: Denies dysuria or hematuria Integumentary Denies abscess Neurologic Neurologic: Denies headache(s) Psychiatric Psychiatric: Denies anxiety Endocrine Endocrinology: Denies cold intolerance Hematologic/Lymphatic Hematologic/Lymphatic: Reports none Allergic/Immunologic Allergic/Immunologic ED: Denies mouth swelling or tongue swelling EXAM Physical Exam Narrative Exam Narrative: Well-appearing 32-year-old female. Vital signs are stable her heart rate she came in at 131 while in the room was around 117. Pulse ox 98% on room air no hypoxia. She has no distress. Resting comfortably. HEENT exam mild dry mucous membranes. Otherwise unremarkable. Neck nontender no lymphadenopathy. No thyromegaly. Trachea midline. Lungs clear to auscultation bilaterally. Heart tachycardic rate about 11/06/2016. No murmur. Abdomen soft, nontender, nondistended normal bowel sounds no peritoneal signs. Gravid uterus. Moving all 4 extremities. Calves are nontender without edema or cords. Neurologically patient is awake alert with no focal motor deficits. Const Vital Signs: 03/14/23 11:23 03/14/23 11:47 03/14/23 11:47 Temperature 98.2 F 98.2 F Temperature Source Temporal Oral Pulse Rate 131 H 116 H 117 H Respiratory Rate 26 H 31 H 23 H Respiratory Effort Respiratory Pattern Blood Pressure 145/86 H 141/73 H 141/73 H Blood Pressure Mean 105 95 95 Pulse Ox 98 Oxygen Delivery Method Room Air Room Air Room Air 03/14/23 11:57 03/14/23 13:00 Temperature Temperature Source Pulse Rate 114 H Respiratory Rate 32 H Respiratory Effort Normal Non-Labored Respiratory Pattern Normal Blood Pressure 129/66 H Blood Pressure Mean 87 Pulse Ox Oxygen Delivery Method Positive well nourished and well developed; Negative for cachectic, contractures or unkempt General Appearance ED: well developed and NAD; Negative for unkempt, cachectic, contractures, cyanotic, diaphoretic or pallor Nutritional Appearance: Negative for cachectic HEENT Reports dry mucous membranes; Denies moist mucous membranes or other Negative for trauma, tenderness or other Mouth ED: Yes dry mucous membranes Mouth: dry mucous membranes Eyes PERRL and EOMs intact bilaterally General Eye ED: Negative for pale conjunctiva or scleral icterus Neck no lymphadenopathy, supple and no JVD General: Negative for tenderness Lymph Lymphatic: Negative for other Chest Wall inspection of chest normal and palpation of chest normal Chest: Negative for other Resp normal respiratory effort and clear to auscultation bilaterally Effort and Inspection: Negative for retractions Auscultation: Negative for rales, rhonchi or wheezes Cardio regular rhythm, S1 normal heart sound, S2 normal heart sound and no murmurs; Negative for regular rate Rate: tachycardic Rhythm: Negative for abnormal rhythm GI normal to inspection, nondistended, normoactive bowel sounds, non-tender, non- distended and no masses Inspection: Negative for abdominal distention Auscultation: normoactive bowel sounds Palpation: soft; Negative for tender, guarding, splenomegaly, mass or rebound tenderness present Back/Spine no CVA tenderness General Back: Negative for CVA tenderness Cervical Spine: Negative for cervical spine tenderness Thoracic Spine / Upper Back: Negative for thoracic spinal tenderness Lumbar Spine / Lower Back: Negative for lumbar spinal tenderness Extremity normal to inspection General Extremety ED: Negative for edema or tenderness General Extremity: Negative for edema Neuro oriented x3 and CN's II-XII intact bilaterally Sensorium / Orientation: alert; Negative for orientation impaired, lethargic or stuporous Motor Exam: strength 5/5 throughout; Negative for general weakness or strength abnormal Psych mental status grossly normal Appearance: Negative for unkempt Attitude: No agitated Mood & Affect: Negative for depressed, anxious or tearful Skin no rashes or lesions noted, no wounds and skin turgor normal General Skin Exam: Negative for elasticity normal, jaundice or pallor Lesions: No lesion noted Rashes: No rashes noted Trauma: Negative for abrasion Wounds: Negative for wounds noted MDM MDM MDM Narrative Medical decision making narrative: 32-year-old female tachycardia with a specific cause and may be from mild dehydration. She has a significant history of hypertension, diabetes and factor V Leiden. Screening labs will be obtained. Clinically I do not think this is a PE but persistent tachycardia, with a clotting disorder I am going obtain a D-dimer. She will be treated with a liter normal saline. Patient doing well on repeat exam at 1:29 PM. We went over her test results. She will be discharged home. Outpatient follow-up with her [facility] as scheduled. History & Record Review Discussion w/independent historian: Patient Additional record(s) reviewed:: Prior inpatient record, Prior outpatient record, Prior ED visit and Prior labs Lab Data Attestation: I reviewed the patient's lab results. Lab results narrative: CBC shows white count 13.4. H&H 10.2 32.1. Platelets 348. D-dimer elevated 0.81. Electrolytes gap 11 normal BUN and creatinine nine 0.6. Glucose 125. No signs of dehydration. CTA chest showed no mild. Interpreted by the radiologist. No PE. No dissection. Reviewed by me. Labs: Laboratory Results - last 24 hr 03/14/23 03/14/23 03/14/23 12:05 12:05 12:05 WBC 13.4 H RBC 3.62 L Hgb 10.2 L Hct 32.1 L MCV 88.7 D MCH 28.2 MCHC 31.8 L D RDW Std Deviation 51.0 H RDW Coeff of Cat 15.8 H Plt Count 348 MPV 9.7 Immature Gran % (Auto) 1.400 H Neut % (Auto) 87.1 H Lymph % (Auto) 7.8 L [place] % (Auto) 3.6 Eos % (Auto) 0.0 Baso % (Auto) 0.1 Absolute Neuts (auto) 11.7 H Absolute Lymphs (auto) 1.04 Nucleated RBC % 0 D-Dimer Quant (PE/DVT) 0.81 H* Sodium 138 Potassium 4.0 Chloride 107 Carbon Dioxide 20.0 L Anion Gap 11 BUN 9 Creatinine 0.66 Estim Creat Clear Calc 93.20 Est GFR (MDRD) Af Amer 134 Est GFR (MDRD) Non-Af 111 BUN/Creatinine Ratio 13.7 Glucose 125 H Calcium 9.4 Radiography Diagnostic Testing: Clinical Impression(s) from Imaging Studies Chest CTA 03/14/23 12:35 IMPRESSION: Normal CTA chest examination, without a demonstrated pulmonary embolism or arterial dissection. Electronically Signed: Tucker Elizondo MD at 13:18 EDT , Rhythm Strip Rhythm Strip: Sinus Tach Rate: 116 Ectopy: None EKG Initial EKG: Interpretation: Sinus Tachycardia Comments: Sinus tachycardia rate of 116 no acute signs of MS or ischemia. No S1Q3T3. Discharge Plan Triage Chief Complaint: Palpitations Other Complaint: Shortness of Breath ED Provider: Jesus Hernandes Dx/Rx/DC Orders Clinical Impression: Chronic anemia, Tachycardia, Second trimester , History of factor V Leiden mutation, Chronic anticoagulation Instructions: ED Palpitations Prescriptions: No Action loratadine [Claritin] 10 mg tablet 10 mg PO DAILY diphenhydramine HCl [Benadryl] 25 mg capsule 25 mg PO QHS PRN (Reason: sleep and allergies) PNV-DHA 27 mg iron-1 mg -300 mg capsule 1 cap PO DAILY sertraline [Zoloft] 50 mg tablet 50 mg PO DAILY enoxaparin 40 mg/0.4 mL syringe 40 mg subcut DAILY aspirin 81 mg tablet,delayed release (DR/EC) 81 mg PO DAILY ondansetron HCl 4 mg tablet 4 mg PO Q4H Qty: 60 3RF (DME) Dexcom G6 [address] Contractor Misc See Rx Instructions .Route Qty: 4 5RF Rx Instructions: As directed insulin lispro [Humalog KwikPen Insulin] 100 unit/mL insulin pen 1 sliding scale dose subcut USEASDIRECTD Qty: 15 6RF Rx Instructions: 2 units if 150-175, 4 units if 176-200, 6 units if 201-225, 8 units if 226- 250, call if over 250 albuterol sulfate [Ventolin HFA] 90 mcg/actuation HFA aerosol inhaler 1 - 2 puff inhalation Q4H PRN PRN (Reason: Wheezing) Qty: 1 0RF acetaminophen [Tylenol] 325 mg Tablet 1,000 mg PO PRN PRN (Reason: Pain) ferrous sulfate [iron] 325 mg (65 mg iron) Tablet 325 mg PO DAILY insulin NPH isoph U-100 human 100 unit/mL Suspension 22 unit SUBCUT QHS Rx Instructions: pt previously taking 18 units, starting 22 units today dextromethorphan-guaifenesin 60-1,200 mg tablet extended release 12 hr 1 tab PO PRN PRN (Reason: pt had covid in January) (DME) blood-glucose meter Misc See Rx Instructions .MEDSUPPLY Qty: 1 0RF Rx Instructions: As directed- Test fasting and 2 hours after meals (DME) lancets Misc See Rx Instructions .MEDSUPPLY Qty: 100 10RF Rx Instructions: As directed test fasting and 2 hours pp(4 times per day) (DME) Accutrend Glucose test strips Strip See Rx Instructions .Route Qty: 50 12RF Rx Instructions: As directed test fasting and 2 hours pp(4 times per day) metformin 1,000 mg tablet 1,000 mg PO BID Qty: 60 4RF Primary Care Provider: Antwon Rodríguez Referrals: Antwon Rodríguez DO [Primary Care Provider] - Elaine Fine MD [Med Staff - Active Staff] - As Needed Activity Restrictions/Additional Instructions: Your labs are unremarkable. You have a chronic anemia and your blood count is where it normally runs. No signs of blood clot on the CAT scan. Plenty of fluids. Follow-up with your [facility] as scheduled. Disposition Disposition: Home, Self Care
[2023-03-14] MEDS: 0.9% Normal Saline 1,000 ML 1000 ML IV (12:07)
[2023-03-14 12:16] LABS: Absolute Lymphocyte Count 1.04 X10^3/uL (0.83-4.51); Absolute Neutrophil Count 11.7 X10^3/uL (2.0-7.7); Basophil# 0.02 X10^3/uL; Basophil% 0.1 % (0-1); Hematocrit 32.1 % (37-47); Hemoglobin 10.2 g/dL (12.0-15.0); Lymphocyte # 1.04 X10^3/ul (0.83-4.51); Lymphocyte % 7.8 % (19-41); Mean Corp Hgb Conc 31.8 g/dL (32-36); Mean Corpuscular Hgb 28.2 pg (27.0-32.0); Mean Corpuscular Volume 88.7 fL (81-99); Mean Platelet Vol. 9.7 fl (6.2-12.0); Monocyte# 0.48 X10^3/uL; Monocyte% 3.6 % (0-10); NRBC Flagged by Analyzer 0 % (0-5); Neutrophil # 11.65 X10^3/uL (2.7-7.7); Neutrophil % 87.1 % (47-70); Platelet Count 348 K/mm3 (150-450); RBC Distribution Width CV 15.8 % (11.6-14.6); Red Blood Count 3.62 M/mm3 (4.2-5.4); White Blood Count 13.4 K/mm3 (4.4-11.0)
[2023-03-14 12:28] LABS: Anion Gap 11 (5-15); BUN 9 mg/dL (7-18); BUN/Creat Ratio 13.7 RATIO (10-20); Calcium,Total 9.4 mg/dL (8.5-10.1); Chloride 107 mmol/L (98-107); Creatinine, Serum 0.66 mg/dL (0.55-1.02); EST Glomerular Filtration Rate 111 mL/min (>60); Est Glom Filt Rate - Afr Amer 134 mL/min (>60); Glucose 125 mg/dL (74-106); Sodium Level 138 mmol/L (136-145)
[2023-03-14 12:30] LABS: D-Dimer Quantitative (DVT/PE) 0.81 FEU/ug/m (0.27-0.49)
--- NOTE | 2023-03-14 12:35 | CT_ITS ---
STUDY: CTA CHEST REASON FOR EXAM: Female, 32 years old. Elevated D dimer and . Shield abd / pelvis. RADIATION DOSAGE (If Supplied By Facility): CTDIvol = ( 11.47 ) mGy, DLP = ( 460.60 ) mGycm TECHNIQUE: The examination was performed with the intravenous administration of IV 100mL Isovue-370. Post-processing of the angiographic images was performed, with multiplanar reformation and 3D reconstruction. Individualized dose optimization techniques were used for this CT. COMPARISON: Comparison is made with prior examination dated January 22, 2023. FINDINGS: Normal enhancement of the main pulmonary artery and right and left pulmonary arteries. Normal enhancement of the bilateral peripheral pulmonary arteries. There is no demonstrated pulmonary embolism. Normal thoracic aorta and visualized great vessels. There is no demonstrated aortic dissection. Normal heart and pericardium. Normal mediastinum. Normal hilar regions. Normal visualized trachea and bronchi. The lungs are well expanded. Normal pulmonary parenchyma. Normal pleura. Normal chest wall structures. Normal osseous structures. Small hilar hernia. Fatty infiltration of the liver. CT/CTA Chest W/WO Contrast IMPRESSION: Normal CTA chest examination, without a demonstrated pulmonary embolism or arterial dissection. Electronically Signed: Tucker Elizondo MD at 13:18 EDT ,
--- NOTE | 2023-03-14 12:59 | ED.RN ---
PER DR. DUNBAR VERBAL ORDER, OKAY TO DISCONTINUE SEPSIS SCREENS OF 1250.
[2023-03-14 13:00] VITALS: BP 129/66; PULSE 114; RESP 32
[2023-03-14 13:26] VITALS: O2SAT 98
[2023-03-14 13:34] VITALS: BP 116/48; PULSE 113; RESP 33
== END 2023-03-14 13:38 | disposition home or self-care (01) ==
PROVIDERS: Emergency Provider Emergency Medicine; PCP Family Medicine; Visit Provider Emergency Medicine
DX: O99.013 Anemia complicating pregnancy, third trimester (principal); O99.891 Other specified diseases and conditions complicating pregnancy; O99.353 Diseases of the nervous system complicating pregnancy, third trimester; R00.0 Tachycardia, unspecified; G47.30 Sleep apnea, unspecified; Z3A.28 28 weeks gestation of pregnancy
CPT/HCPCS: 71275; 80048; 85025; 85379; 93005; 96360; 99284; J7030; Q9967; A4216

== ENCOUNTER 2023-03-14 20:55 | Outpatient (CLI) | payer BC, SELFPAY ==
[2023-03-14] MEDS: Betamethasone/Betamethasone 30 MG/5 ML Vial 12 MG IM (22:01)
--- NOTE | 2023-04-06 08:53 | OB.TRI.PN ---
Progress Notes Date of Service: 03/14/23 Progress Note: Second dose IM Celestone injection for congential adrenal hyperplasia Charges/Coding Procedures Urinary/Genital 52xxx-59xxx: No Charge Assessment & Plan (1) Congenital adrenal hyperplasia: COMMENT: diagnosed by [facility]. S/P MFM consult for management. plan steroids for l and d, MFM cocare for (2) : QUALIFIERS: Weeks of gestation: 31 weeks Qualified Code(s): Z3A.31 - 31 weeks gestation of COMMENT: anatomy nl, normal echo, declined carrier testing. nl NT. afp neg. (3) Supervision of high risk , antepartum: COMMENT: PRR ,FANI 06/02/23 Ashok
== END 2023-03-14 22:15 | disposition home or self-care (01) ==
LOC: WPOUT 21:00 → WP 21:06
PROVIDERS: PCP Family Medicine; Referring Provider Advanced Practice Midwife; Visit Provider Advanced Practice Midwife
DX: O99.283 Endocrine, nutritional and metabolic diseases complicating pregnancy, third trimester (principal); E25.0 Congenital adrenogenital disorders associated with enzyme deficiency; Z3A.31 31 weeks gestation of pregnancy
CPT/HCPCS: 96372; J0702

== ENCOUNTER 2023-04-04 17:10 | Outpatient (CLI) | payer BC, SELFPAY ==
[2023-04-04] VITALS (15 sets, daily range): BP systolic 122–173; BP diastolic 58–89; PULSE 113–127; TEMP 37.1; O2SAT 90–96
[2023-04-04 18:59] LABS: Hematocrit 33.6 % (37-47); Hemoglobin 10.8 g/dL (12.0-15.0); Mean Corp Hgb Conc 32.1 g/dL (32-36); Mean Corpuscular Hgb 28.2 pg (27.0-32.0); Mean Corpuscular Volume 87.7 fL (81-99); Mean Platelet Vol. 9.8 fl (6.2-12.0); Platelet Count 347 K/mm3 (150-450); RBC Distribution Width CV 15.7 % (11.6-14.6); RBC Distribution Width SD 50.2 fl (35.1-43.9); Red Blood Count 3.83 M/mm3 (4.2-5.4); White Blood Count 10.7 K/mm3 (4.4-11.0)
[2023-04-04 19:12] LABS: AST(SGOT) 13 U/L (15-37); Alanine Aminotransfer ALT/SGPT 15 U/L (13-56); Creatinine, Serum 0.57 mg/dL (0.55-1.02); EST Glomerular Filtration Rate 131 mL/min (>60); Est Glom Filt Rate - Afr Amer 158 mL/min (>60); Estimated Creatinine Clearance 107.91 ml/min; Uric Acid 4.1 mg/dL (2.6-6.0)
[2023-04-04 19:26] LABS: Protein, Urine (Random) < 6.0 mg/dL (<11.9)
[2023-04-04] MEDS: Labetalol 200 MG Tablet 100 MG PO (20:20)
--- NOTE | 2023-04-10 07:25 | OB.TRI.PN_ITS ---
Progress Notes Date of Service: 04/04/23 Progress Note: Patient presents for triage evaluation secondary to contractions FHT: 140 Moderate variability reactive no decelerations category I tracing [place]: irritability Contractions Assessment and plan: false labor Reactive NST, reassuring maternal and status patient discharged to home to follow-up as scheudled. See problem list details for additional plan information. Laboratory Studies: Laboratory Tests 04/04/23 04/04/23 04/04/23 Range/Units 18:15 18:15 18:00 WBC 10.7 (4.4-11.0) K/mm3 RBC 3.83 L (4.2-5.4) M/mm3 Hgb 10.8 L (12.0-15.0) g/dL Hct 33.6 L (37-47) % MCV 87.7 (81-99) fL MCH 28.2 (27.0-32.0) pg MCHC 32.1 (32-36) g/dL RDW Std Deviation 50.2 H (35.1-43.9) fl RDW Coeff of Cat 15.7 H (11.6-14.6) % Plt Count 347 (150-450) K/mm3 MPV 9.8 (6.2-12.0) fl Creatinine 0.57 (0.55-1.02) mg/dL Estim Creat Clear Calc 107.91 ml/min Est GFR (MDRD) Af Amer 158 (>60) mL/min Est GFR (MDRD) Non-Af 131 (>60) mL/min Uric Acid 4.1 (2.6-6.0) mg/dL AST 13 L (15-37) U/L ALT 15 (13-56) U/L U Random Total Protein < 6.0 (<11.9) mg/dL Urine Creatinine 13.90 (NO RANGE EST.) mg/dL Protein/Creatinin Ratio TNP Charges/Coding Procedures Urinary/Genital 52xxx-59xxx: 20735-49 non-stress test Interp
== END 2023-04-04 20:33 | disposition home or self-care (01) ==
LOC: WPOUT 17:18 → WP 17:22
PROVIDERS: Obstetrics & Gynecology; PCP Family Medicine; Referring Provider Advanced Practice Midwife; Visit Provider Advanced Practice Midwife
DX: O47.9 False labor, unspecified (principal); Z3A.00 Weeks of gestation of pregnancy not specified
CPT/HCPCS: 36415; 59025; 59050; 82565; 82570; 84156; 84450; 84460; 84550; 85027; 99221; G0378

== ENCOUNTER 2023-04-08 19:57 | Outpatient (CLI) | payer BC, SELFPAY ==
[2023-04-08 20:07] VITALS: PULSE 111; O2SAT 98
[2023-04-08 20:10] VITALS: BP 148/68; PULSE 110; TEMP 37.4; BMI 45.2
[2023-04-08 20:26] VITALS: BP 133/63; PULSE 97
--- NOTE | 2023-04-14 03:25 | OB.TRI.PN ---
Progress Notes Date of Service: 04/08/23 Progress Note: Patient presents for triage evaluation secondary to decreased movement FHT: 140 Moderate variability reactive no decelerations category I tracing [place]: no regular Contractions Assessment and plan: dec movement Reactive NST, reassuring maternal and status patient discharged to home to follow-up as scheduled. See problem list details for additional plan information. Charges/Coding Procedures Urinary/Genital 52xxx-59xxx: 76129-96 non-stress test Interp
== END 2023-04-08 20:40 | disposition home or self-care (01) ==
LOC: WPOUT 20:01 → WP 20:01
PROVIDERS: PCP Family Medicine; Referring Provider Obstetrics & Gynecology; Visit Provider Obstetrics & Gynecology
DX: O98.52 Other viral diseases complicating childbirth (principal); D68.2 Hereditary deficiency of other clotting factors; D68.51 Activated protein C resistance; U07.1 COVID-19; Z79.82 Long term (current) use of aspirin; O99.12 Other diseases of the blood and blood-forming organs and certain disorders involving the immune mechanism complicating childbirth; Z78.9 Other specified health status; Z3A.32 32 weeks gestation of pregnancy; O16.3 Unspecified maternal hypertension, third trimester; O24.313 Unspecified pre-existing diabetes mellitus in pregnancy, third trimester
CPT/HCPCS: 59025; 59050; 99221; G0378

== ENCOUNTER 2023-04-21 23:00 | Outpatient (CLI) | payer BC, SELFPAY ==
[2023-04-21 23:12] VITALS: TEMP 37.2
--- NOTE | 2023-04-21 23:13 | OB.TRI.HP_ITS ---
HPI - General General Date of Admission: 04/21/23 HPI Narrative KOMAL ENCARNACION, is a 32 y/o @34 weeks 1 day who presents to L&D for the complaint of a mild headache and right upper quadrant pain. She has known chronic htn and blood pressures have been stable. She denies nausea, vomiting, or diarrhea Maternal Data Information FANI Calculator Estimated Delivery Date Method Current WG Current Estimate 06/02/23 Manual 34w 1d PFSH PFSH Medical History Congenital adrenal hyperplasia Factor V Leiden Hx of recurrent urinary tract infection Hypertension PCOS (polycystic ovarian syndrome) Sleep apnea Home Medications diphenhydramine HCl 25 mg capsule (Benadryl) 25 mg PO QHS PRN sleep and allergies 04/08/22 [History Last Taken 04/07/23 21:00] loratadine 10 mg tablet (Claritin) 10 mg PO DAILY allergies 04/08/22 [History Last Taken 04/08/23 08:00] enoxaparin 40 mg/0.4 mL subcutaneous syringe 40 mg subcut DAILY factor IV 11/04/22 [History Last Taken 04/07/23 21:00] multivitamin no.47-iron fum 27 mg-folate no.1 1 mg-dha 300 mg capsule (PNV-DHA) 1 cap PO DAILY Check with primary doctor 11/04/22 [History Last Taken 04/07/23 21:00] sertraline 50 mg tablet (Zoloft) 50 mg PO DAILY anxiety 11/04/22 [History Last Taken 04/07/23 21:00] blood sugar diagnostic (Accutrend Glucose test strips) #50 ea 11/15/22 [Rx Last Taken Unknown] blood-glucose meter #1 ea 11/15/22 [Rx Last Taken Unknown] lancets #100 ea 11/15/22 [Rx Last Taken Unknown] aspirin 81 mg tablet,delayed release 81 mg PO DAILY 11/21/22 [History Last Taken 04/07/23 21:00] metformin 1,000 mg tablet 1,000 mg PO BID #60 tabs 12/14/22 [Rx Last Taken 04/08/23 08:00] acetaminophen 325 mg tablet (Tylenol) 1,000 mg PO PRN PRN Pain 03/13/23 [History Last Taken 04/08/23 14:00] ferrous sulfate 325 mg (65 mg iron) tablet (iron) 325 mg PO DAILY anemia 03/13/23 [History Last Taken 04/07/23 08:00] insulin NPH isoph U-100 human 100 unit/mL subcutaneous suspension 38 unit subcut QHS 03/13/23 [History Last Taken 04/07/23 21:00] blood-glucose meter,continuous (Dexcom G6 Ground Support Equipment Mechanic) #4 ea 03/14/23 [Rx Last Taken Unknown] insulin lispro 100 unit/mL subcutaneous pen (Humalog KwikPen (U-100) Insulin) 1 sliding scale dose subcut USEASDIRECTD #15 mL 03/14/23 [Rx Last Taken 04/03/23 22:00 28 Units] labetalol 100 mg tablet 200 mg PO BID 04/04/23 [History Last Taken 04/07/23 08:00] ondansetron HCl 4 mg tablet 4 mg PO Q4H 04/04/23 [History Last Taken 04/08/23 14:00] Allergy/AdvReac Type Severity Reaction Status Date / Time No Known Allergies Allergy Verified 04/17/23 08:06 Family History Mother Fibroids DVT (deep venous thrombosis) Grandmother Diabetes Aunt Diabetes Surgical History cornea cross linking Eye abnormalities H/O colonoscopy H/O endoscopy H/O laparoscopy Hernia Hx of dilation and curettage [place] teeth extracted Social History adopted: Yes (adopted by step father) household members: spouse and other details: brother housing: house number of children: 0 current occupational status: 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 current occupational exposures/hazards: No pets and animals: Yes (Not managing litterbox) pets and animals: cat(s) and dog(s) history of recent travel: No sexually active: Yes Smoking Status: Never smoker Electronic Cigarette Use: not used second hand exposure: No alcohol intake: former details: not while substance use type: does not use well-balanced diet: daily or most days caffeine: No eating out: 1-3 times/week during the past year weight has: increased > 10 lbs what type of physical activity do you participate in: none roshni/christianity: Roman Catholic seatbelt use: always do you feel safe at home: Yes additional social history: Ashok[employer]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 Date Name GA/Weeks Outcome Route Bth Weight Infant Gen Labor Lgth Anesthesia [facility] Provider FOB 12/28/21 miscarriage 5w5d 06/12/22 miscarriage 7w2d Visit Details Expected Delivery Route/Plan Labor Preferences- CB/BF classes: [] labor support person: [] labor intervention preferences: [] pain management options preferred: [] cut cord/dad catch: [] : [] PP control planned: [] discussed possible routes of delivery and associated risks: [] special requests: [] Plans Covid status: discussed Flu vaccine: discussed Tdap vaccine: given Rhogam: na LARC form signed: [] movement and labor precautions reviewed. Problem list reviewed and updated with the most current plan of care details and appropriate orders placed. Relevant counseling for the gestational age provided. Continue routine care and follow up unless otherwise noted in visit notes/problem list details OB Flowsheet Initial Weight: Not Recorded Date -?-?-?-?-?-?-?-?-?-?-?-?- EGA Weight BP Urine Prot -?-?-?-?-?-?-?-?-?-?-?-?- Glucose FHR FuHt Pres Dilation -?-?-?-?-?-?-?-?-?-?-?-?- Effaced St Visit Note 11/04/22 -?-?-?-?-?-?-?-?-?-?-?-?- 10w 0d 254 lb 2 oz 140/81 -?-?-?-?-?-?-?-?-?-?-?-?- 160 -?-?-?-?-?-?-?-?-?-?-?-?- SM- no vb crmapi ng, transfer from [facility], on estradiol and lovenox still per [facility], has family history of DVT under 50 so recommend lovenox prophylaxis in . obtain MFM consult for [facility]. 11/21/22 -?-?-?-?-?-?-?-?-?-?-?-?- 12w 3d 255 lb 2 oz 140/93 Nega tive -?-?-?-?-?-?-?-?-?-?-?-?- Negative 160 -?-?-?-?-?-?-?-?-?-?-?-?- SM- needing some zofran. SM- needing some zofran.saw consult with mfm doing well, bs around goal 12/12/22 -?-?-?-?-?-?-?-?-?-?-?-?- 15w 3d 246 lb 8 oz 144/82 Nega tive -?-?-?-?-?-?-?-?-?-?-?-?- Negative 150 -?-?-?-?-?-?-?-?-?-?-?-?- SM- no vb crampi ng started on insulin 01/02/23 -?-?-?-?-?-?-?-?-?-?-?-?- 18w 3d 242 lb 8 oz 124/61 -?-?-?-?-?-?-?-?-?-?-?-?- 150 -?-?-?-?-?-?-?-?-?-?-?-?- SM- no vb lof go od fm having some episodes of fatigue. 01/26/23 -?-?-?-?-?-?-?-?-?-?-?-?- 21w 6d 241 lb 8 oz 120/71 Nega tive -?-?-?-?-?-?-?-?-?-?-?-?- Negative 135 -?-?-?-?-?-?-?-?-?-?-?-?- JV- has echo reggie clemons. normal glucose levels followed by mfm. echo next week. some cramping, no lof, vaginal bleeding,and + fm. 02/15/23 -?-?-?-?-?-?-?-?-?-?-?-?- 24w 5d 237 lb 8 oz 118/75 Nega tive -?-?-?-?-?-?-?-?-?-?-?-?- Negative 135 26 -?-?-?-?-?-?-?-?-?-?-?-?- JV- no lof vagin al bleeding or dec fm. start testing at 32 weeks twice weekly wants to switch to Dr. Ambriz for endo. nl echo and anatomy 03/14/23 -?-?-?-?-?-?-?-?-?-?-?-?- 28w 4d 234 lb 2 oz 139/77 -?-?-?-?-?-?-?-?-?-?-?-?- 135 29 -?-?-?-?-?-?-?-?-?-?-?-?- SM- patient seen for elevated bps- restated on bp medication and given celestone, SSI given today. incresaed baseline insulin. still having shakiness and mild tachycardia- to ER for evaluation. *s/p ER evaluation- ct chest negative for PE 03/28/23 -?-?-?-?-?-?-?-?-?-?-?-?- 30w 4d 232 lb 2 oz 115/69 Nega tive -?-?-?-?-?-?-?-?-?-?-?-?- Negative 135 30 -?-?-?-?-?-?-?-?-?-?-?-?- SM- no vb lof go od fm no regular ctx 04/07/23 -?-?-?-?-?-?-?-?-?-?-?-?- 32w 0d 237 lb 6 oz 120/74 Nega tive -?-?-?-?-?-?-?-?-?-?-?-?- Negative 140 -?-?-?-?-?-?-?-?-?-?-?-?- SM- nst 04/14/23 -?-?-?-?-?-?-?-?-?-?-?-?- 33w 0d 243 lb 4 oz 124/76 Nega tive -?-?-?-?-?-?-?-?-?-?-?-?- Negative 130 -?-?-?-?-?-?-?-?-?-?-?-?- JV- nst reactive . bp well controlled. glucose well controlled. pt thinks that she is a primary section. no info from mfm to indicate this need. will need stress dose steroids in labor. deliver at 37 weeks. 04/17/23 -?-?-?-?-?-?-?-?-?-?-?-?- 33w 3d 243 lb 103/60 Negative -?-?-?-?-?-?-?-?-?-?-?-?- Negative 145 33 0 -?-?-?-?-?-?-?-?-?-?-?-?- 0 LC- reac tive NST. no vb/lof/ctx. good fm. BP well controlled. glucose overall controlled, occassionally needing fast acting insulin. MFM comanaging glucose/htn. ROS Constitutional Constitutional: Reports systems reviewed and no addt'l complaints, except as documented Gastrointestinal Gastrointestinal: Denies bloating, constipation, cramping, diarrhea, nausea or vomiting Genitourinary Genitourinary: Reports other Details: Denies vaginal odor, vaginal bleeding, or vaginal discharge ; Denies difficulty urinating or flank pain NST FHR Rate Baby A Baseline: 130 Variability:: Moderate Accelerations:: 15 x 15 Decelerations:: None NST Reactive:: Yes FHR Category:: Category I Assessment & Plan (1) Cholelithiasis affecting in third trimester, antepartum: COMMENT: Shadowing stones within gallbladder lumen.? No significant gallbladder wall thickening or pericholecystic fluid demonstrated. The proximal common bile duct measures 4 mm. Sonographic Babin''s sign: Negative. - Follow up with gen surg after delivery., PLAN: LIVER: There is moderate increased echogenicity. No focal hepatic lesion.? No significant intrahepatic biliary ductal dilatation. The right lobe of liver is enlarged and measures 20.1 cm in length. GALLBLADDER AND BILIARY TREE: Shadowing stones within gallbladder lumen.? No significant gallbladder wall thickening or pericholecystic fluid demonstrated. The proximal common bile duct measures 4 mm. Sonographic Babin''s sign: Negative. PANCREAS: Unremarkable as visualized. RIGHT KIDNEY: Right kidney measures 12 cm in length.? No hydronephrosis.? No discrete right renal lesion demonstrated. VESSELS: Unremarkable as visualized. US/Abdomen Limited IMPRESSION: ? 1.? Cholelithiasis 2.? Hepatomegaly and hepatic steatosis labs are stable without elevation in LFTs, blood pressure stable, and after tylenol and rest patient state that her pain is a zero plan to dc to home with light meat-free, fat-free diet will need to follow up with gen surg after delivery. (2) COVID-19 affecting in second trimester: COMMENT: growth US every 4 weeks, NST weekly starting at 32 weeks asa 81 mg daily (3) Hypertension affecting : COMMENT: labetalol. EKG ordered. baseline cmp and urine pr cr ratio. IOL 37-38 weeks (4) Modified White class B pregestational diabetes mellitus: COMMENT: MFM cocare MFM managing. metformin and insulin. (5) Obesity affecting : COMMENT: 1 TM GCT (6) Factor V Leiden: COMMENT: RGLidya VELASQUEZ notified. hetero. lovenox 40 daily plan in due to family history and will give PP if she has a cs. (7) Conceived by in vitro fertilization: COMMENT: Transfer 09/15/22, Confirmed 09/26/22,on lovenox, estradiol, metformin per [facility], discontinue per their reocmmendations. (8) Grief associated with loss of fetus: COMMENT: sees counselor (9) Anxiety: COMMENT: sees counselor (10) Supervision of high risk , antepartum: COMMENT: PRR ,FANI 06/02/23 Ashok (11) : QUALIFIERS: Weeks of gestation: 33 weeks Qualified Code(s): Z3A.33 - 33 weeks gestation of COMMENT: anatomy nl, normal echo, declined carrier testing. nl NT. afp neg. (12) Congenital adrenal hyperplasia: COMMENT: diagnosed by [facility]. S/P MFM consult for management. plan steroids for l and d, MFM cocare for (13) RENEE (obstructive sleep apnea): (14) Asthma: QUALIFIERS: Asthma severity: mild Asthma persistence: intermittent Asthma complication type: uncomplicated Qualified Code(s): J45.20 - Mild intermittent asthma, uncomplicated COMMENT: albuterol PRN Charges/Coding Multi Select Codes Urinary/Genital Urinary/Genital CPT Codes: 82907-08 non-stress test Interp
[2023-04-21 23:19] VITALS: BMI 46.3
[2023-04-21 23:20] VITALS: BP 142/74; PULSE 99
[2023-04-21 23:24] VITALS: BP 146/87; PULSE 101
[2023-04-21 23:29] VITALS: BP 139/80; PULSE 98
--- NOTE | 2023-04-21 23:44 | US_ITS ---
INDICATION: right upper quad pain -- wants scan of right upper quad EXAMINATION: US Abdomen Limited (quadrant) TECHNIQUE: Bowman scale and color doppler imaging was performed of the right upper quadrant. COMPARISON: CTA chest from 03/14/2023 FINDINGS: LIVER: There is moderate increased echogenicity. No focal hepatic lesion. No significant intrahepatic biliary ductal dilatation. The right lobe of liver is enlarged and measures 20.1 cm in length. GALLBLADDER AND BILIARY TREE: Shadowing stones within gallbladder lumen. No significant gallbladder wall thickening or pericholecystic fluid demonstrated. The proximal common bile duct measures 4 mm. Sonographic Babin''s sign: Negative. PANCREAS: Unremarkable as visualized. RIGHT KIDNEY: Right kidney measures 12 cm in length. No hydronephrosis. No discrete right renal lesion demonstrated. VESSELS: Unremarkable as visualized. US/Abdomen Limited IMPRESSION: 1. Cholelithiasis 2. Hepatomegaly and hepatic steatosis Electronically Signed: Antwon De La Cruz MD at 2:01 EDT ,
[2023-04-21 23:45] VITALS: BP 134/73; PULSE 93
[2023-04-22 00:18] LABS: Hematocrit 30.2 % (37-47); Hemoglobin 9.8 g/dL (12.0-15.0); Mean Corp Hgb Conc 32.5 g/dL (32-36); Mean Corpuscular Hgb 28.7 pg (27.0-32.0); Mean Corpuscular Volume 88.3 fL (81-99); Mean Platelet Vol. 9.8 fl (6.2-12.0); Platelet Count 294 K/mm3 (150-450); RBC Distribution Width CV 15.6 % (11.6-14.6); RBC Distribution Width SD 50.4 fl (35.1-43.9); Red Blood Count 3.42 M/mm3 (4.2-5.4); White Blood Count 8.2 K/mm3 (4.4-11.0)
[2023-04-22 00:30] LABS: AST(SGOT) 14 U/L (15-37); Alanine Aminotransfer ALT/SGPT 13 U/L (13-56); Creatinine, Serum 0.62 mg/dL (0.55-1.02); EST Glomerular Filtration Rate 120 mL/min (>60); Est Glom Filt Rate - Afr Amer 145 mL/min (>60); Estimated Creatinine Clearance 99.21 ml/min; Uric Acid 4.8 mg/dL (2.6-6.0)
[2023-04-22 00:31] LABS: Protein, Urine (Random) < 6.0 mg/dL (<11.9); Protein:Creat Ratio 185 mg/g CRE (0-200)
[2023-04-22 00:33] LABS: LDH 144 U/L (84-246)
[2023-04-22 00:46] VITALS: BP 145/67; PULSE 95
[2023-04-22 01:01] VITALS: BP 133/60; PULSE 97
[2023-04-22 01:03] LABS: Prothrombin Time (Protime)PT. 13.4 SECONDS (11.7-14.9)
[2023-04-22] MEDS: Acetaminophen 500 MG Tablet 1000 MG PO (01:21)
== END 2023-04-22 02:47 | disposition home or self-care (01) ==
LOC: WPOUT 23:06 → WP 23:06
PROVIDERS: PCP Family Medicine; Referring Provider Obstetrics & Gynecology; Visit Provider Obstetrics & Gynecology
DX: O10.913 Unspecified pre-existing hypertension complicating pregnancy, third trimester (principal); E25.0 Congenital adrenogenital disorders associated with enzyme deficiency; D68.51 Activated protein C resistance; Z79.4 Long term (current) use of insulin; O99.353 Diseases of the nervous system complicating pregnancy, third trimester; O99.613 Diseases of the digestive system complicating pregnancy, third trimester; O24.113 Pre-existing type 2 diabetes mellitus, in pregnancy, third trimester; O99.213 Obesity complicating pregnancy, third trimester; O99.113 Other diseases of the blood and blood-forming organs and certain disorders involving the immune mechanism complicating pregnancy, third trimester; O99.343 Other mental disorders complicating pregnancy, third trimester; O99.283 Endocrine, nutritional and metabolic diseases complicating pregnancy, third trimester; O99.513 Diseases of the respiratory system complicating pregnancy, third trimester; K80.20 Calculus of gallbladder without cholecystitis without obstruction; G47.33 Obstructive sleep apnea (adult) (pediatric); F41.9 Anxiety disorder, unspecified; J45.909 Unspecified asthma, uncomplicated; Z79.82 Long term (current) use of aspirin; Z79.84 Long term (current) use of oral hypoglycemic drugs; Z79.899 Other long term (current) drug therapy; Z3A.34 34 weeks gestation of pregnancy; Z86.16 Personal history of COVID-19
CPT/HCPCS: 36415; 59025; 59050; 76705; 82565; 82570; 83615; 84156; 84450; 84460; 84550; 85027; 85610; 85730; 86850; 86900; 86901

== ENCOUNTER → 2023-04-27 | Outpatient (CLI) | payer BC, SELFPAY ==
[2023-04-27 15:27] LABS: Absolute Lymphocyte Count 1.56 X10^3/uL (0.83-4.51); Absolute Neutrophil Count 5.2 X10^3/uL (2.0-7.7); Basophil# 0.01 X10^3/uL; Basophil% 0.1 % (0-1); Eosinophil# 0.15 X10^3/uL; Hematocrit 32.1 % (37-47); Hemoglobin 10.5 g/dL (12.0-15.0); Lymphocyte # 1.56 X10^3/ul (0.83-4.51); Mean Corp Hgb Conc 32.7 g/dL (32-36); Mean Corpuscular Hgb 28.8 pg (27.0-32.0); Mean Corpuscular Volume 88.2 fL (81-99); Monocyte# 0.51 X10^3/uL; Monocyte% 6.9 % (0-10); NRBC Flagged by Analyzer 0 % (0-5); Neutrophil # 5.16 X10^3/uL (2.7-7.7); Neutrophil % 69.3 % (47-70); Platelet Count 303 K/mm3 (150-450); RBC Distribution Width CV 15.5 % (11.6-14.6); RBC Distribution Width SD 49.5 fl (35.1-43.9); Red Blood Count 3.64 M/mm3 (4.2-5.4); White Blood Count 7.4 K/mm3 (4.4-11.0)
[2023-04-27 16:00] LABS: Protein:Creat Ratio 247 mg/g CRE (0-200)
[2023-04-27 16:11] LABS: ALB/GLOB Ratio 0.6 RATIO (0.9-2.4); AST(SGOT) 15 U/L (15-37); Alanine Aminotransfer ALT/SGPT 17 U/L (13-56); Albumin, Serum 2.6 g/dL (3.2-5.0); Alkaline Phosphatase 116 U/L (45-117); Anion Gap 6 (5-15); BUN 9 mg/dL (7-18); BUN/Creat Ratio 13.4 RATIO (10-20); Chloride 106 mmol/L (98-107); Creatinine, Serum 0.67 mg/dL (0.55-1.02); EST Glomerular Filtration Rate 109 mL/min (>60); Est Glom Filt Rate - Afr Amer 131 mL/min (>60); Globulin 4.1 g/dL (2.2-4.2); Glucose 108 mg/dL (74-106); Protein, Total 6.7 g/dL (6.4-8.2); Sodium Level 136 mmol/L (136-145)
== END | disposition home or self-care (01) ==
PROVIDERS: Nurse Practitioner Women's Health; PCP Family Medicine; Referring Provider Obstetrics & Gynecology; Visit Provider Obstetrics & Gynecology
DX: O16.9 Unspecified maternal hypertension, unspecified trimester (principal); Z3A.00 Weeks of gestation of pregnancy not specified
CPT/HCPCS: 36415; 80053; 82570; 84156; 85025

== ENCOUNTER 2023-05-05 07:19 | Inpatient (IN) | payer BC, SELFPAY ==
[2023-05-05] VITALS (54 sets, daily range): BP systolic 129–155; BP diastolic 60–90; PULSE 84–113; RESP 15; TEMP 36.7–37.3; O2SAT 94–100; BMI 46.3
[2023-05-05 06:12] LABS: Bedside Glucose 91 mg/dL (74-106)
[2023-05-05 06:18] LABS: Absolute Lymphocyte Count 1.95 X10^3/uL (0.83-4.51); Absolute Neutrophil Count 6.4 X10^3/uL (2.0-7.7); Basophil# 0.03 X10^3/uL; Basophil% 0.3 % (0-1); Eosinophil# 0.24 X10^3/uL; Eosinophils% 2.6 % (0-5); Hematocrit 30.7 % (37-47); Hemoglobin 10.5 g/dL (12.0-15.0); Lymphocyte # 1.95 X10^3/ul (0.83-4.51); Lymphocyte % 20.8 % (19-41); Mean Corp Hgb Conc 34.2 g/dL (32-36); Mean Corpuscular Hgb 30.3 pg (27.0-32.0); Mean Corpuscular Volume 88.5 fL (81-99); Mean Platelet Vol. 10.1 fl (6.2-12.0); Monocyte# 0.68 X10^3/uL; Monocyte% 7.3 % (0-10); NRBC Flagged by Analyzer 0 % (0-5); Neutrophil # 6.36 X10^3/uL (2.7-7.7); Neutrophil % 67.9 % (47-70); Platelet Count 293 K/mm3 (150-450); RBC Distribution Width CV 15.7 % (11.6-14.6); RBC Distribution Width SD 49.8 fl (35.1-43.9); Red Blood Count 3.47 M/mm3 (4.2-5.4); White Blood Count 9.4 K/mm3 (4.4-11.0)
[2023-05-05] MEDS: Acetaminophen 500 MG Tablet 1000 MG PO (06:18)
[2023-05-05] MEDS: Ondansetron 4 MG/2 ML Vial IV ×2 (06:18→18:18)
[2023-05-05] MEDS: 0.9% Saline Lock 10 ML Syringe IV (06:19)
[2023-05-05 06:37] LABS: ALB/GLOB Ratio 0.6 RATIO (0.9-2.4); AST(SGOT) 18 U/L (15-37); Alanine Aminotransfer ALT/SGPT 15 U/L (13-56); Albumin, Serum 2.5 g/dL (3.2-5.0); Alkaline Phosphatase 120 U/L (45-117); Anion Gap 7 (5-15); BUN 9 mg/dL (7-18); BUN/Creat Ratio 14.7 RATIO (10-20); Calcium,Total 9.1 mg/dL (8.5-10.1); Chloride 109 mmol/L (98-107); Creatinine, Serum 0.61 mg/dL (0.55-1.02); EST Glomerular Filtration Rate 121 mL/min (>60); Est Glom Filt Rate - Afr Amer 146 mL/min (>60); Estimated Creatinine Clearance 100.83 ml/min; Globulin 3.9 g/dL (2.2-4.2); Glucose 94 mg/dL (74-106); Protein, Total 6.4 g/dL (6.4-8.2); Sodium Level 138 mmol/L (136-145)
[2023-05-05] MEDS: Lactated Ringers 1,000 ML 999 ML IV (06:41)
[2023-05-05 06:49] LABS: Protein, Urine (Random) 16.9 mg/dL (<11.9); Protein:Creat Ratio 344 mg/g CRE (0-200)
[2023-05-05 07:17] LABS: Group B Strep DNA By PCR POSITIVE (Negative); Probe Check PASS
[2023-05-05] MEDS: Lactated Ringers 1,000 ML 50 ML IV (07:52)
[2023-05-05] MEDS: Labetalol 200 MG Tablet PO ×2 (08:01→22:02)
[2023-05-05 08:31] LABS: Bedside Glucose 96 mg/dL (74-106)
--- NOTE | 2023-05-05 08:55 | HP.PCM.OB_ITS ---
HPI - General General Date of Admission: 05/05/23 HPI Narrative KOMAL ENCARNACION, is a 32 F who presents in labor with preeclampsia elevated bps and significant pain. no vb lof good fm Maternal Data Information FANI Calculator Estimated Delivery Date Method Current WG Current Estimate 06/02/23 Manual 36w 0d PFSH PFSH Medical History (Updated 05/05/23 @ 08:[address] Elaine Fine MD) Blood clotting disorder Chronic hypertension Congenital adrenal hyperplasia Factor V Leiden Gestational diabetes Gestational HTN Headache Hx of recurrent urinary tract infection Hypertension Liver disease PCOS (polycystic ovarian syndrome) Sleep apnea Home Medications diphenhydramine HCl 25 mg capsule (Benadryl) 25 mg PO QHS PRN sleep and allergies 04/08/22 [History Last Taken 04/07/23 21:00] loratadine 10 mg tablet (Claritin) 10 mg PO DAILY allergies 04/08/22 [History Last Taken 04/08/23 08:00] enoxaparin 40 mg/0.4 mL subcutaneous syringe 40 mg subcut DAILY factor IV 11/04/22 [History Last Taken 05/04/23 22:45] multivitamin no.47-iron fum 27 mg-folate no.1 1 mg-dha 300 mg capsule (PNV-DHA) 1 cap PO DAILY Check with primary doctor 11/04/22 [History Last Taken 05/04/23] sertraline 50 mg tablet (Zoloft) 50 mg PO DAILY anxiety 11/04/22 [History Last Taken 05/04/23] blood sugar diagnostic (Accutrend Glucose test strips) #50 ea 11/15/22 [Rx Last Taken Unknown] blood-glucose meter #1 ea 11/15/22 [Rx Last Taken Unknown] lancets #100 ea 11/15/22 [Rx Last Taken Unknown] aspirin 81 mg tablet,delayed release 81 mg PO DAILY 11/21/22 [History Last Taken 05/04/23] metformin 1,000 mg tablet 1,000 mg PO BID #60 tabs 12/14/22 [Rx Last Taken 05/04/23 22:45] acetaminophen 325 mg tablet (Tylenol) 1,000 mg PO PRN PRN Pain 03/13/23 [History Last Taken 05/04/23] ferrous sulfate 325 mg (65 mg iron) tablet (iron) 325 mg PO DAILY anemia 03/13/23 [History Last Taken 05/04/23] blood-glucose meter,continuous (Dexcom G6 Manufacturing Engineering Technician) #4 ea 03/14/23 [Rx Last Taken Unknown] insulin lispro 100 unit/mL subcutaneous pen (Humalog KwikPen (U-100) Insulin) 1 sliding scale dose subcut USEASDIRECTD #15 mL 03/14/23 [Rx Last Taken 04/03/23 22:00 28 Units] ondansetron HCl 4 mg tablet 8 mg PO Q8H 04/04/23 [History Last Taken 05/04/23] insulin NPH isoph U-100 human 100 unit/mL subcutaneous suspension 44 unit subcut QHS 04/24/23 [History Last Taken 05/04/23 22:45] labetalol 100 mg tablet 200 mg (2 x 100 mg) PO BID #60 tabs 04/24/23 [Rx Last Taken 05/04/23 22:45] diphenhydramine HCl 50 mg/30 mL oral liquid (NightTime Sleep Aid (diphenhydramine)) 12.5 mg PO QHS 05/05/23 [History Last Taken Unknown] enoxaparin 40 mg/0.4 mL subcutaneous syringe (Lovenox) 40 mg subcut DAILY 05/05/23 [History Last Taken Unknown] Allergy/AdvReac Type Severity Reaction Status Date / Time No Known Allergies Allergy Verified 05/05/23 06:21 Family History Mother Fibroids DVT (deep venous thrombosis) Grandmother Diabetes Aunt Diabetes Surgical History cornea cross linking Eye abnormalities H/O colonoscopy H/O endoscopy H/O laparoscopy Hernia History of gynecologic surgery Hx of dilation and curettage [place] teeth extracted Social History adopted: Yes (adopted by step father) household members: spouse and other details: brother housing: house number of children: 0 current occupational status: 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 current occupational exposures/hazards: No pets and animals: Yes (Not managing litterbox) pets and animals: cat(s) and dog(s) history of recent travel: No sexually active: Yes Smoking Status: Never smoker Electronic Cigarette Use: not used second hand exposure: No alcohol intake: former details: not while substance use type: does not use well-balanced diet: daily or most days caffeine: No eating out: 1-3 times/week during the past year weight has: increased > 10 lbs what type of physical activity do you participate in: none roshni/sikhism: Faith seatbelt use: always do you feel safe at home: Yes additional social history: 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 Date Name GA/Weeks Outcome Route Bth Weight Gen Labor Lgth Anesthesia Del Locatn Provider FOB 12/28/21 miscarriage 5w5d 06/12/22 miscarriage 7w2d Visit Details Expected Delivery Route/Plan Labor Preferences- CB/BF classes: [] labor support person: [] labor intervention preferences: [] pain management options preferred: [] cut cord/dad catch: [] : [] PP control planned: [] discussed possible routes of delivery and associated risks: [] special requests: [] Plans Covid status: discussed Flu vaccine: discussed Tdap vaccine: given Rhogam: na LARC form signed: [] movement and labor precautions reviewed. Problem list reviewed and updated with the most current plan of care details and appropriate orders placed. Relevant counseling for the gestational age provided. Continue routine care and follow up unless otherwise noted in visit notes/problem list details OB Flowsheet Initial Weight: Not Recorded Date -?-?-?-?-?-?-?-?-?-?-?-?- EGA Weight BP Urine Prot -?-?-?-?-?-?-?-?-?-?-?-?- Glucose FHR FuHt Pres Dilation -?-?-?-?-?-?-?-?-?-?-?-?- Effaced St Visit Note 11/04/22 -?-?-?-?-?-?-?-?-?-?-?-?- 10w 0d 254 lb 2 oz 140/81 -?-?-?-?-?-?-?-?-?-?-?-?- 160 -?-?-?-?-?-?-?-?-?-?-?-?- SM- no vb crmapi ng, transfer from [facility], on estradiol and lovenox still per [facility], has family history of DVT under 50 so recommend lovenox prophylaxis in . obtain [facility] consult for CAH. 11/21/22 -?-?-?-?-?-?-?-?-?-?-?-?- 12w 3d 255 lb 2 oz 140/93 Nega tive -?-?-?-?-?-?-?-?-?-?-?-?- Negative 160 -?-?-?-?-?-?-?-?-?-?-?-?- SM- needing some zofran. SM- needing some zofran.saw consult with m doing well, bs around goal 12/12/22 -?-?-?-?-?-?-?-?-?-?-?-?- 15w 3d 246 lb 8 oz 144/82 Nega tive -?-?-?-?-?-?-?-?-?-?-?-?- Negative 150 -?-?-?-?-?-?-?-?-?-?-?-?- SM- no vb crampi ng started on insulin 01/02/23 -?-?-?-?-?-?-?-?-?-?-?-?- 18w 3d 242 lb 8 oz 124/61 -?-?-?-?-?-?-?-?-?-?-?-?- 150 -?-?-?-?-?-?-?-?-?-?-?-?- SM- no vb lof go od fm having some episodes of fatigue. 01/26/23 -?-?-?-?-?-?-?-?-?-?-?-?- 21w 6d 241 lb 8 oz 120/71 Nega tive -?-?-?-?-?-?-?-?-?-?-?-?- Negative 135 -?-?-?-?-?-?-?-?-?-?-?-?- JV- has echo reggie kaci. normal glucose levels followed by mfm. echo next week. some cramping, no lof, vaginal bleeding,and + fm. 02/15/23 -?-?-?-?-?-?-?-?-?-?-?-?- 24w 5d 237 lb 8 oz 118/75 Nega tive -?-?-?-?-?-?-?-?-?-?-?-?- Negative 135 26 -?-?-?-?-?-?-?-?-?-?-?-?- JV- no lof vagin al bleeding or dec fm. start testing at 32 weeks twice weekly wants to switch to Dr. Ambriz for endo. nl echo and anatomy 03/14/23 -?-?-?-?-?-?-?-?-?-?-?-?- 28w 4d 234 lb 2 oz 139/77 -?-?-?-?-?-?-?-?-?-?-?-?- 135 29 -?-?-?-?-?-?-?-?-?-?-?-?- SM- patient seen for elevated bps- restated on bp medication and given celestone, SSI given today. incresaed baseline insulin. still having shakiness and mild tachycardia- to ER for evaluation. *s/p ER evaluation- ct chest negative for PE 03/28/23 -?-?-?-?-?-?-?-?-?-?-?-?- 30w 4d 232 lb 2 oz 115/69 Nega tive -?-?-?-?-?-?-?-?-?-?-?-?- Negative 135 30 -?-?-?-?-?-?-?-?-?-?-?-?- SM- no vb lof go od fm no regular ctx 04/07/23 -?-?-?-?-?-?-?-?-?-?-?-?- 32w 0d 237 lb 6 oz 120/74 Nega tive -?-?-?-?-?-?-?-?-?-?-?-?- Negative 140 -?-?-?-?-?-?-?-?-?-?-?-?- SM- nst 04/14/23 -?-?-?-?-?-?-?-?-?-?-?-?- 33w 0d 243 lb 4 oz 124/76 Nega tive -?-?-?-?-?-?-?-?-?-?-?-?- Negative 130 -?-?-?-?-?-?-?-?-?-?-?-?- JV- nst reactive . bp well controlled. glucose well controlled. pt thinks that she is a primary section. no info from mfm to indicate this need. will need stress dose steroids in labor. deliver at 37 weeks. 04/17/23 -?-?-?-?-?-?-?-?-?-?-?-?- 33w 3d 243 lb 103/60 Negative -?-?-?-?-?-?-?-?-?-?-?-?- Negative 145 33 0 -?-?-?-?-?-?-?-?-?-?-?-?- 0 LC- reac tive NST. no vb/lof/ctx. good fm. BP well controlled. glucose overall controlled, occassionally needing fast acting insulin. MFM comanaging glucose /htn. 04/24/23 -?-?-?-?-?-?-?-?-?-?-?-?- 34w 3d 244 lb 132/87 Negative -?-?-?-?-?-?-?-?-?-?-?-?- Negative 140 -?-?-?-?-?-?-?-?-?-?-?-?- SM- no vb lof go od fm no regular ctx SM- no vb lof good fm no reg ular ctx check labs- ordered 04/27/23 -?-?-?-?-?-?-?-?-?-?-?-?- 34w 6d 242 lb 2 oz 118/68 1+ -?-?-?-?-?-?-?-?-?-?-?-?- Negative 130 -?-?-?-?-?-?-?-?-?-?-?-?- MH-NST only reac tive. Pre E labs today. 05/02/23 -?-?-?-?-?-?-?-?-?-?-?-?- 35w 4d 242 lb 4 oz 114/67 Trac e -?-?-?-?-?-?-?-?-?-?-?-?- Negative 140 38 -?-?-?-?-?-?-?-?-?-?-?-?- JTerrie- pt has ultra sound on and NST. She states that some bp's at home are as high as 160 systolic. here bp's are normal/low. plan to return to office for gbs and pelvic exam later this week to then set up IOL JTerrie- pt has ultrasound on mon and NST. She states that some bp's at home are as high as 160 systolic. here bp's are normal/low. plan to return to office for gbs and pelvic exam later this week to then set up IOL at 37 weeks per [facility]. 05/05/23 -?-?-?-?-?-?-?-?-?-?-?-?- 36w 0d 245 lb 2.464 oz 151/ 90 155/78 147/69 -?-?-?-?-?-?-?-?-?-?-?-?- 4 -?-?-?-?-?-?-?--?-?-?-?-?- 90 -1 NST FHR Rate Baby A Baseline: 140-150 Variability:: Minimal and Moderate Accelerations:: 15 x 15 Decelerations:: None NST Reactive:: Non-Reactive FHR Category:: Category II (minimal variability at time, no decels, now moderate) Uterine Activity:: q3-5 ROS Constitutional Constitutional: Reports systems reviewed and no addt'l complaints, except as documented ENT HEENT: Reports systems reviewed and no addt'l complaints, except as documented Cardiovascular Cardiovascular: Reports systems reviewed and no addt'l complaints, except as documented Respiratory/Chest Respiratory/Chest: Reports systems reviewed and no addt'l complaints, except as documented Gastrointestinal Gastrointestinal: Reports systems reviewed and no addt'l complaints, except as documented and nausea; Denies abdominal pain Genitourinary Genitourinary: Reports systems reviewed and no addt'l complaints, except as documented, contractions Details: present and frequency (regular ) and movement Details: present Musculoskeletal Musculoskeletal: Reports systems reviewed and no addt'l complaints, except as documented Integumentary Integumentary: Reports as per HPI Neurologic Neurologic: Reports systems reviewed and no addt'l complaints, except as documented Endocrine Endocrinology: Reports systems reviewed and no addt'l complaints, except as documented Vital Signs Vital Signs Vital Signs: 05/05/23 05:08 05/05/23 05:08 05/05/23 05:11 Temperature Temperature Source Pulse Rate 104 H Blood Pressure 151/90 H BP Systolic 151 BP Diastolic 90 Pulse Ox 99 05/05/23 05:11 05/05/23 05:14 05/05/23 05:14 Temperature Temperature Source Temporal Pulse Rate 96 Blood Pressure BP Systolic BP Diastolic Pulse Ox 99 05/05/23 05:14 05/05/23 06:44 05/05/23 06:44 Temperature 98.8 F Temperature Source Pulse Rate 92 Blood Pressure 155/78 H BP Systolic 155 BP Diastolic 78 Pulse Ox 05/05/23 08:01 05/05/23 08:01 05/05/23 05:11 Temperature Temperature Source Temporal Pulse Rate 102 H Blood Pressure BP Systolic BP Diastolic Pulse Ox 98 05/05/23 05:11 05/05/23 08:20 05/05/23 08:20 Temperature 98.0 F Temperature Source Pulse Rate 97 Blood Pressure 147/69 H BP Systolic 147 BP Diastolic 69 Pulse Ox 05/05/23 08:20 05/05/23 08:20 Temperature 98.4 F Temperature Source Temporal Pulse Rate Blood Pressure BP Systolic BP Diastolic Pulse Ox Weight Weight: 245 lb 2.464 oz Body Mass Index (BMI) 46.3 Physical Exam Const alert, oriented x3 and healthy appearing Constitutional Narrative: uncomfortable with contractions HEENT normocephalic and moist oral mucous membranes Head and Scalp: atraumatic Neck full ROM, no lymphadenopathy, supple and thyroid normal General: trachea midline Thyroid: thyroid normal Lymph Lymphatic: no lymphadenopathy noted Chest inspection of chest normal Resp normal respiratory effort Cardio regular rate GI normal to inspection, nondistended, normoactive bowel sounds, soft to palpation and non-tender Inspection: gravid external exam normal Bimanual Exam - Vag & Uterus: uterus non-tender Manual OB Exam: estimated gestational size appropriate, presentation cephalic, dilated, effaced and station Extremity normal to inspection General Extremity: Negative for edema Skin no rashes or lesions noted Neuro deep tendon reflexes 2+ bilaterally Motor Exam: strength 5/5 throughout and clonus absent Psych mental status grossly normal Labs Labs Labs: Blood Type O POSITIVE Antibody Screen NEGATIVE Hct 30.7 % (37-47) L Hgb 10.5 g/dL (12.0-15.0) L Pap Smear Negative Obstetrics US Syphilis Total Ab Non-reactive Rubella IgG Antibody Reactive (Nonreactive) Hep Bs Antigen Non-Reactive (Nonreactive) Chlamydia DNA (DOMINIK) Negative (Negative) Neisseria gonorrhoeae DNA (DOMINIK) Negative (Negative) HIV 1&2 Antibody Non-Reactive (Nonreactive) Glucose 1 Hr 50 gm 181 mg/dL (70-140) H Group B Strep DNA POSITIVE (Negative) H Miscellaneous Test Assessment & Plan (1) Factor V Leiden: COMMENT: KYLER VELASQUEZ notified. hetero. lovenox 40 daily plan in due to family history and will give PP if she has a cs. (2) Congenital adrenal hyperplasia: COMMENT: diagnosed by KYLER. S/P MFM consult for management. endocrinology states no steroids needed for l and d. MFM cocare for (3) RENEE (obstructive sleep apnea): (4) Asthma: QUALIFIERS: Asthma severity: mild Asthma persistence: inte rmittent Asthma complication type: uncomplicated Qualified Code(s): J45.20 - Mild intermittent asthma, uncomplicated COMMENT: albuterol PRN (5) : QUALIFIERS: Weeks of gestation: 35 weeks Qualified Code(s): Z3A.35 - 35 weeks gestation of COMMENT: anatomy nl, normal echo, declined carrier testing. nl NT. afp neg. (6) Supervision of high risk , antepartum: COMMENT: PRR ,FANI 06/02/23 Ashok (7) Anxiety: COMMENT: sees counselor (8) Grief associated with loss of fetus: COMMENT: sees counselor (9) Conceived by in vitro fertilization: COMMENT: Transfer 09/15/22, Confirmed 09/26/22,on lovenox, estradiol, metformin per [facility], discontinue per their reocmmendations. (10) Obesity affecting : COMMENT: 1 TM GCT weight on 04/28 was 2677g 56th% (11) Modified White class B pregestational diabetes mellitus: COMMENT: MFM cocare MFM managing. metformin and insulin. BPP with MFM wkly, NST wkly with us (12) Hypertension affecting : COMMENT: labetalol. EKG ordered. baseline cmp and urine pr cr ratio. IOL 37 weeks (13) COVID-19 affecting in second trimester: COMMENT: growth US every 4 weeks, NST weekly starting at 32 weeks asa 81 mg daily (14) Cholelithiasis affecting in third trimester, antepartum: COMMENT: Shadowing stones within gallbladder lumen.? No significant gallbladder wall thickening or pericholecystic fluid demonstrated. The proximal common bile duct measures 4 mm. Sonographic Babin''s sign: Negative. - Follow up with gen surg after delivery.,
[2023-05-05] MEDS: fentaNYL 100 MCG/2 ML Ampul IV (09:07)
[2023-05-05 10:10] LABS: Syphilis Antibodies Non-reactive
[2023-05-05 10:10] LABS: Bedside Glucose 93 mg/dL (74-106)
[2023-05-05] MEDS: LACTATED RINGERS 500 ML 999 ML IV ×2 (10:19→14:03)
[2023-05-05 10:24] LABS: Bedside Glucose 87 mg/dL (74-106)
[2023-05-05] MEDS: fentaNYL-bupivacaine (epidural) 100 ML BAG EPIDURAL ×3 (11:16→20:19)
[2023-05-05 11:46] LABS: Bedside Glucose 82 mg/dL (74-106)
[2023-05-05] MEDS: Lactated Ringers 1,000 ML 200 ML IV (12:07)
[2023-05-05 12:42] LABS: Bedside Glucose 78 mg/dL (74-106)
[2023-05-05 13:27] LABS: Bedside Glucose 88 mg/dL (74-106)
[2023-05-05 14:31] LABS: Bedside Glucose 105 mg/dL (74-106)
[2023-05-05 15:30] LABS: Bedside Glucose 69 mg/dL (74-106)
[2023-05-05] MEDS: Acetaminophen 500 MG Tablet PO ×2 (16:07→22:31)
[2023-05-05] MEDS: Oxytocin 15 Units/NS 250ml 15 UNITS/250 ML IV.SOLN 2 UNITS IV (16:24)
[2023-05-05 16:33] LABS: Bedside Glucose 87 mg/dL (74-106)
[2023-05-05 17:33] LABS: Bedside Glucose 72 mg/dL (74-106)
[2023-05-05 18:31] LABS: Bedside Glucose 81 mg/dL (74-106)
--- NOTE | 2023-05-05 19:11 | PN_ITS ---
Progress Note pt states that she is shaky and uncomfortable. She feels pressure and is asking at what point we would do a section. current tracing: FHT: Moderate variability reactive no decelerations category I tracing [place]: q2-3 min Contractions cx is edematous and now measures 3 cm/80% effaced and she is at a -1 station. A/P: we discussed that after membranes are ruptured and she has adequate uterine contractions x 4 hours (MVU >200) or at least 6 hours of oxytocin administration and no cervical change, we would diagnose her with arrest of labor. -At this point she has been ruptured 7 hours - MVU's not >200 - pitocin has been on and increasing x a little under 3 hours. - will follow [facility] guidelines and suggest section only if fits criteria or unless patient insists on section sooner -EFW 6 lbs.
[2023-05-05 19:48] LABS: Bedside Glucose 98 mg/dL (74-106)
[2023-05-05] MEDS: Mag Hydrox/Al Hydrox/Simeth 30 ML UDC PO (19:51)
[2023-05-05] MEDS: DiphenhydrAMINE 25 MG Capsule 50 MG PO (19:52)
[2023-05-05] MEDS: Sodium Citrate/Citric Acid 30 ML UDC PO (22:32)
--- NOTE | 2023-05-05 22:43 | PCM.PN.BLA ---
Progress Note pt's cervix is essentially unchanged from prior exam 3 hrs ago. She is not willing to continue with the pitocin and is requesting a primary section current tracing: FHT: Moderate variability reactive no decelerations category I tracing [place]: q 2 min Contractions reviewed tracing abnormalities since last note: unchaged A/P: 1. superimposed pre-eclampsia and chronic htn - bp stable 2. arrest of dilation- pt has been on pitocin for 6 hrs and cervix is 3-4 cm. She is not > 6 cm dilated so does not fully fit criteria, however she is not willing to wait longer and is requesting a primary section plan to proceed with a primary section now. 2 grams ancef + 500 mg azithromycin
--- NOTE | 2023-05-05 22:52 | OP.PCM_ITS ---
Assessment & Plan (1) Arrest of dilation, delivered, current hospitalization: (2) Cholelithiasis affecting in third trimester, antepartum: COMMENT: Shadowing stones within gallbladder lumen.? No significant gallbladder wall thickening or pericholecystic fluid demonstrated. The proximal common bile duct measures 4 mm. Sonographic Babin''s sign: Negative. - Follow up with gen surg after delivery., (3) COVID-19 affecting in second trimester: COMMENT: growth US every 4 weeks, NST weekly starting at 32 weeks asa 81 mg daily (4) Hypertension affecting : COMMENT: labetalol. EKG ordered. baseline cmp and urine pr cr ratio. IOL 37 weeks (5) Modified White class B pregestational diabetes mellitus: COMMENT: MFM cocare MFM managing. metformin and insulin. BPP with MFM wkly, NST wkly with us (6) Obesity affecting : COMMENT: 1 TM GCT weight on 04/28 was 2677g 56th% (7) Conceived by in vitro fertilization: COMMENT: Transfer 09/15/22, Confirmed 09/26/22,on lovenox, estradiol, metformin per [facility], discontinue per their reocmmendations. (8) Grief associated with loss of fetus: COMMENT: sees counselor (9) Anxiety: COMMENT: sees counselor (10) Supervision of high risk , antepartum: COMMENT: PRR ,FANI 06/02/23 Ashok (11) : QUALIFIERS: Weeks of gestation: 35 weeks Qualified Code(s): Z3A.35 - 35 weeks gestation of COMMENT: anatomy nl, normal echo, declined carrier testing. nl NT. afp neg. (12) Asthma: QUALIFIERS: Asthma complication type: uncomplicated Asthma persistence: intermittent Asthma severity: mild Qualified Code(s): J45.20 - Mild intermittent asthma, uncomplicated COMMENT: albuterol PRN (13) RENEE (obstructive sleep apnea): (14) Factor V Leiden: COMMENT: KYLER VELASQUEZ notified. hetero. lovenox 40 daily plan in due to family history and will give PP if she has a cs. Maternal Data Information FANI Calculator Estimated Delivery Date Method Current WG Current Estimate 06/02/23 Manual 36w 0d Details Operative Information Date of Procedure: 05/05/23 Pre-Operative Diagnosis: 32 y/o @ 36 weeks, chronic htn with superimposed p re-eclampsia, pre-gestational diabetes, Factor V leiden deficiency, IVF , arrest of dilation Post-Operative Diagnosis: 32 y/o @ 36 weeks, chronic htn with superimposed pre-eclampsia, pre-gestational diabetes, Factor V leiden deficiency, IVF , arrest of dilation Classification: MENDY Procedure Type: low transverse spud sorter #1: Roxi Hirsch Type of Anesthesia: Epidural Antibiotic Given: Ancef 2 grams IV x1 and Zithromax 500 mg/5 mL X1 Drain: Shannon to straight drain Estimated Blood Loss: 400cc Findings Description of Procedure: Epidural anesthesia was found to be adequate .Shannon catheter was in place and a vaginal prep was performed. The patient was placed in the dorsal supine position with leftward tilt. Patient was prepped and draped in the normal sterile fashion. Pfannenstiel skin incision was made with the scalpel and carried through to the underlying layer of fascia with the scalpel. Fascia was nicked in the midline and the incision extended laterally. The rectus bellies were dissected off superiorly and inferiorly with out complication both sharply and bluntly. The peritoneum was entered digitally. The incision was stretched and a low transverse uterine incision was made with the scalpel. The 's head was delivered atraumatically followed by the anterior and posterior shoulders without complication the rest of the infant delivered. The cord was clamped and cut and the infant was handed off to awaiting nurse. The placenta was delivered spontaneously immediately following and was noted to be intact and have a three- vessel cord. The uterus was exteriorized cleared of all clots and debris, and the incision was closed in a double layer closure using #1 Vicryl and #1 Monocryl. The ovaries and fallopian tubes were noted to be within normal limits. The uterus was returned to the maternal abdomen and gutters were cleared of all clots and debris. The peritoneum was closed with 3-0 Monocryl in a running fashion. Fascia was closed with 0 PDS in a running fashion. Subcutaneous tissue was copiously irrigated and the skin was closed with 3-0 Monocryl in a subcuticular fashion. Mepilex dressing was applied without complication. Patient was taken to recovery in stable condition. It was discussed with the patient that based on the clinical information obtained during this encounter, combined with her history, at this time I would recommend repeat sections for future deliveries if further pregnancies are desired due to narrow pelvis and failure to dilate with a small baby. baby girl Arianna scores and weight pending. baby receiving cpap after delivery Presentation: Positive for Vertex Amniotic Membrane Rupture Type: Artificial Amniotic Fluid Description: Clear Placental Delivery Description: Expressed Placenta Disposition: [facility] Cord Vessel Description: 3 Vessels Cord Entanglement: None A Gender: Female Delayed Cord Clamping: Yes Complications Risks of Surgery Discussed w/Patient: Bleeding, Anesthesia Risks, Need for Future C-Sections and Injury to surrounding structure(s) including bowel and bladder Complications: none Multi Select Codes Urinary/Genital Urinary/Genital CPT Codes: 59661 Delivery [facility]
[2023-05-05] MEDS: Cefazolin 2 GM in 0.9% Normal Saline 100 ML IV (22:55)
[2023-05-06] VITALS (17 sets, daily range): BP systolic 128–168; BP diastolic 67–97; PULSE 92–111; RESP 12–20; TEMP 36.1–36.9; O2SAT 93–99
[2023-05-06] MEDS: Oxytocin 15 Units/NS 250ml 15 UNITS/250 ML IV.SOLN 83 UNITS IV (00:15)
[2023-05-06] MEDS: Ketorolac 30 MG/ML Syringe IV ×4 (01:02→18:55)
[2023-05-06] MEDS: HYDROmorphone 1 MG/ML Syringe IV (02:05)
[2023-05-06 02:43] LABS: Bedside Glucose 89 mg/dL (74-106)
[2023-05-06] MEDS: Lactated Ringers 1,000 ML 100 ML IV ×2 (03:25→06:48)
--- NOTE | 2023-05-06 04:03 | NURSING ---
Dr. Lowry called and updated that patient is still getting 5L O2 with simple mask due to spo2 dropping to 87 without oxygen. Patient requires home cpap to sleep. CPAP was trialed and sp02 dropped so 5L O2 was replaced. Plan is to leave oxygen on patient at this time. Will talk to respiratory and ask to add oxygen to home cpap machine.
[2023-05-06] MEDS: Acetaminophen 500 MG Tablet 1000 MG PO ×4 (04:13→22:44)
[2023-05-06 06:54] LABS: Hematocrit 28.1 % (37-47); Mean Corpuscular Hgb 28.6 pg (27.0-32.0); Mean Corpuscular Volume 89.2 fL (81-99); Mean Platelet Vol. 9.7 fl (6.2-12.0); Platelet Count 236 K/mm3 (150-450); RBC Distribution Width CV 15.7 % (11.6-14.6); RBC Distribution Width SD 50.2 fl (35.1-43.9); Red Blood Count 3.15 M/mm3 (4.2-5.4); White Blood Count 10.1 K/mm3 (4.4-11.0)
[2023-05-06 07:08] LABS: Scan Indicated on CBC? Y/N NO
[2023-05-06] MEDS: oxyCODONE 5 MG Tablet PO ×5 (08:26→21:00)
[2023-05-06] MEDS: metFORMIN HCl 1,000 MG Tablet 1000 MG PO ×2 (08:26→16:58)
[2023-05-06] MEDS: 0.9% Saline Lock 10 ML Syringe IV ×3 (08:41→18:56)
[2023-05-06] MEDS: Senna/Docusate Sodium 1 Tablet PO (10:10)
[2023-05-06] MEDS: Enoxaparin 40 MG/0.4 ML Syringe SC (10:10)
[2023-05-06] MEDS: Labetalol 100 MG Tablet 200 MG PO ×2 (10:11→22:44)
[2023-05-06] MEDS: Sertraline 50 MG Tablet PO (10:11)
--- NOTE | 2023-05-06 10:43 | PN.OBGYN_ITS ---
Subjective Subjective Patient is laying in bed comfortably without complaints. She states that she slept on an off during the night. Lochia is mild and pain is minimal. Objective Data Objective Data Vital Signs: Vital Signs Temp Pulse Resp BP Pulse Ox O2 Del Method O2 Flow Rate 97.8 F 102 H 16 138/79 H 97 Room Air 5 05/06/23 08:33 05/06/23 08:33 05/06/23 08:33 05/06/23 08:33 05/06/23 08:33 05/06/23 08:33 05/06/23 03:15 Oxygen Flow Rate (L/min) 5 Oxygen Delivery Method Room Air Weight: 245 lb 2.464 oz Body Mass Index (BMI) 46.3 Intake & Output: Intake and Output for Last 24 Hours 05/04/23 05/05/23 05/06/23 23:59 23:59 23:59 Intake Total 4661.50 / 4661.50 943.33 / 943.33 Output Total 1550 / 1550 1300 / 1300 Balance 3111.50 / 3111.50 -356.67 / -356.67 Lab / Micro Data 05/06/23 06:45 05/05/23 06:00 Labs: Laboratory Results - last 24 hr 05/05/23 11:20: POC Glucose 82 05/05/23 12:14: POC Glucose 78 05/05/23 13:06: POC Glucose 88 05/05/23 14:10: POC Glucose 105 05/05/23 15:09: POC Glucose 69 L 05/05/23 16:14: POC Glucose 87 05/05/23 17:13: POC Glucose 72 L 05/05/23 18:07: POC Glucose 81 05/05/23 19:00: POC Glucose 98 05/06/23 02:16: POC Glucose 89 05/06/23 06:45: WBC 10.1, RBC 3.15 L, Hgb 9.0 L, Hct 28.1 L, MCV 89.2, MCH 28.6, MCHC 32.0 D, RDW Std Deviation 50.2 H, RDW Coeff of Cat 15.7 H, Plt Count 236, MPV 9.7 ROS Constitutional Constitutional: Reports systems reviewed and no addt'l complaints, except as do cumented Cardiovascular Cardiovascular: Denies chest pain, dizziness, dyspnea or irregular heart rhythm Respiratory/Chest Respiratory/Chest: Denies cough, pain on inspiration or shortness of breath at r est Gastrointestinal Gastrointestinal: Denies abdominal pain, nausea or vomiting Genitourinary Genitourinary: Denies burning urination Musculoskeletal Musculoskeletal: Denies muscle cramps, muscle spasms or muscle weakness Neurologic Neurologic: Denies confusion, dizziness, headache(s) or lack of coordination Psychiatric Psychiatric: Denies anxiety, behavioral changes or depression Physical Exam HEENT normocephalic Resp normal respiratory effort and normal air movement GI soft to palpation, non-tender and non-distended Rectal Exam: other Other Details: Incision is clean, dry, and intact no CVA tenderness Extremity normal to inspection General Extremity: edema bilateral (trace ) Assessment & Plan (1) Status post section: COMMENT: arturo DELEON PLAN: s/p LTCS PPD # 1 1. routine post care 2. breast feeding- support given 3. rh positive 4. rubella immune 5. continue with cpap at night, fasting and 2 hr pp glucose levels, metformin and half insulin (22 nph)
[2023-05-06 11:16] LABS: Bedside Glucose 81 mg/dL (74-106)
[2023-05-06 15:22] LABS: Bedside Glucose 118 mg/dL (74-106)
[2023-05-06 23:04] LABS: Bedside Glucose 89 mg/dL (74-106)
[2023-05-07 01:54] VITALS: BP 127/72; PULSE 94; RESP 18
[2023-05-07] MEDS: Naproxen 500 MG Tablet PO ×3 (01:56→17:16)
[2023-05-07] MEDS: Acetaminophen 500 MG Tablet 1000 MG PO ×3 (05:27→18:10)
[2023-05-07 05:47] LABS: Bedside Glucose 91 mg/dL (74-106)
[2023-05-07] MEDS: oxyCODONE 5 MG Tablet PO ×2 (08:18→15:06)
[2023-05-07] MEDS: metFORMIN HCl 1,000 MG Tablet 1000 MG PO ×2 (08:18→17:16)
[2023-05-07 08:20] VITALS: BP 142/64; PULSE 100; RESP 16; TEMP 36.6; O2SAT 97
--- NOTE | 2023-05-07 09:23 | PCM.PN.OB ---
Subjective Subjective Patient is sitting in NICU with baby without complaints. She states that she slept on an off during the night. Lochia is mild and pain is minimal. She is requesting to stay in patient for another day for support. Objective Data Objective Data Vital Signs: Vital Signs Temp Pulse Resp BP Pulse Ox O2 Del Method O2 Flow Rate 97.8 F 100 16 142/64 H 97 Room Air 5 05/07/23 08:20 05/07/23 08:20 05/07/23 08:20 05/07/23 08:20 05/07/23 08:20 05/07/23 08:20 05/06/23 03:15 Oxygen Flow Rate (L/min) 5 Oxygen Delivery Method Room Air Weight: 245 lb 2.464 oz Body Mass Index (BMI) 46.3 Intake & Output: Intake and Output for Last 24 Hours 05/05/23 05/06/23 05/07/23 23:59 23:59 23:59 Intake Total 4661.50 / 4661.50 1143.33 / 1143.33 Output Total 1550 / 1550 2700 / 2700 Balance 3111.50 / 3111.50 -1556.67 / -1556.67 Lab / Micro Data 05/06/23 06:45 05/05/23 06:00 Labs: Laboratory Results - last 24 hr 05/06/23 10:17: POC Glucose 81 05/06/23 15:01: POC Glucose 118 H 05/06/23 22:43: POC Glucose 89 05/07/23 05:26: POC Glucose 91 ROS Constitutional Constitutional: Reports systems reviewed and no addt'l complaints, except as documented Cardiovascular Cardiovascular: Denies chest pain, dizziness, dyspnea or irregular heart rhythm Respiratory/Chest Respiratory/Chest: Denies cough, pain on inspiration or shortness of breath at rest Gastrointestinal Gastrointestinal: Denies abdominal pain, nausea or vomiting Genitourinary Genitourinary: Denies burning urination Musculoskeletal Musculoskeletal: Denies muscle cramps, muscle spasms or muscle weakness Neurologic Neurologic: Denies confusion, dizziness, headache(s) or lack of coordination Psychiatric Psychiatric: Denies anxiety, behavioral changes or depression Physical Exam HEENT normocephalic Resp normal respiratory effort and normal air movement GI soft to palpation, non-tender and non-distended Rectal Exam: other Other Details: Incision is clean, dry, and intact no CVA tenderness Extremity normal to inspection General Extremity: edema bilateral (trace ) Assessment & Plan (1) Status post section: COMMENT: arturo DELEON (2) Arrest of dilation, delivered, current hospitalization: (3) Cholelithiasis affecting in third trimester, antepartum: COMMENT: Shadowing stones within gallbladder lumen.? No significant gallbladder wall thickening or pericholecystic fluid demonstrated. The proximal common bile duct measures 4 mm. Sonographic Babin''s sign: Negative. - Follow up with gen surg after delivery., (4) Hypertension affecting : COMMENT: labetalol. EKG ordered. baseline cmp and urine pr cr ratio. IOL 37 weeks (5) Modified White class B pregestational diabetes mellitus: COMMENT: MFM cocare MFM managing. metformin and insulin. BPP with MFM wkly, NST wkly with us (6) Obesity affecting : COMMENT: 1 TM GCT weight on 04/28 was 2677g 56th% (7) Conceived by in vitro fertilization: COMMENT: Transfer 09/15/22, Confirmed 09/26/22,on lovenox, estradiol, metformin per [facility], discontinue per their reocmmendations. (8) Grief associated with loss of fetus: COMMENT: sees counselor (9) Anxiety: COMMENT: sees counselor (10) Supervision of high risk , antepartum: COMMENT: PRR ,FANI 06/02/23 Ashok (11) : QUALIFIERS: Weeks of gestation: 35 weeks Qualified Code(s): Z3A.35 - 35 weeks gestation of COMMENT: anatomy nl, normal echo, declined carrier testing. nl NT. afp neg. (12) Asthma: QUALIFIERS: Asthma severity: mild Asthma persistence: intermittent Asthma complication type: uncomplicated Qualified Code(s): J45.20 - Mild intermittent asthma, uncomplicated COMMENT: albuterol PRN (13) RENEE (obstructive sleep apnea): (14) Factor V Leiden: COMMENT: KYLER VELASQUEZ notified. hetero. lovenox 40 daily plan in due to family history and will give PP if she has a cs. PLAN: Plan s/p LTCS PPD #2 1. routine post care 2. breast feeding- support given 3. rh positive 4. rubella immune 5. continue lovenox 6. held insulin last night- on metformin during the day, will check 2 hr pp tonight before giving pm insulin dose again 7. social work consult in per nursing request to help with resources. 8. plan dc to hotel status tomorrow. baby still on glucose and in nicu
[2023-05-07] MEDS: Enoxaparin 40 MG/0.4 ML Syringe SC (10:04)
[2023-05-07] MEDS: Sertraline 50 MG Tablet PO (10:05)
[2023-05-07] MEDS: Senna/Docusate Sodium 1 Tablet PO (10:05)
[2023-05-07] MEDS: Labetalol 100 MG Tablet 200 MG PO ×2 (10:37→23:34)
--- NOTE | 2023-05-07 11:18 | CON.PCM.LA_ITS ---
Assessment & Plan Assessment/Plan (1) Care and examination of lactating mother: PLAN: Feeding/Pumping plan as listed below HPI Consult Data Date of Consult: 05/07/23 HPI Narrative HPI Narrative: KOMAL ENCARNACION, is a 32 F who presents assessment, pumping questions. History provided by the patient. [facility] Medical History (Updated 05/07/23 @ 12:50 by Myra Matta CALKER, CALKER-C) Blood clotting disorder Chronic hypertension Congenital adrenal hyperplasia Factor V Leiden Gestational diabetes Gestational HTN Headache Hx of recurrent urinary tract infection Hypertension Liver disease PCOS (polycystic ovarian syndrome) Sleep apnea Home Medications diphenhydramine HCl 25 mg capsule (Benadryl) 25 mg PO QHS PRN sleep and allergies 04/08/22 [History Last Taken 04/07/23 21:00] loratadine 10 mg tablet (Claritin) 10 mg PO DAILY allergies 04/08/22 [History Last Taken 04/08/23 08:00] enoxaparin 40 mg/0.4 mL subcutaneous syringe 40 mg subcut DAILY factor IV 11/04/22 [History Last Taken 05/04/23 22:45] multivitamin no.47-iron fum 27 mg-folate no.1 1 mg-dha 300 mg capsule (PNV-DHA) 1 cap PO DAILY Check with primary doctor 11/04/22 [History Last Taken 05/04/23] sertraline 50 mg tablet (Zoloft) 50 mg PO DAILY anxiety 11/04/22 [History Last Taken 05/04/23] blood sugar diagnostic (Accutrend Glucose test strips) #50 ea 11/15/22 [Rx Last Taken Unknown] blood-glucose meter #1 ea 11/15/22 [Rx Last Taken Unknown] lancets #100 ea 11/15/22 [Rx Last Taken Unknown] aspirin 81 mg tablet,delayed release 81 mg PO DAILY 11/21/22 [History Last Taken 05/04/23] metformin 1,000 mg tablet 1,000 mg PO BID #60 tabs 12/14/22 [Rx Last Taken 05/04/23 22:45] acetaminophen 325 mg tablet (Tylenol) 1,000 mg PO PRN PRN Pain 03/13/23 [History Last Taken 05/04/23] ferrous sulfate 325 mg (65 mg iron) tablet (iron) 325 mg PO DAILY anemia 03/13/23 [History Last Taken 05/04/23] blood-glucose meter,continuous (Dexcom G6 [employer] Operator) #4 ea 03/14/23 [Rx Last Taken Unknown] insulin lispro 100 unit/mL subcutaneous pen (Humalog KwikPen (U-100) Insulin) 1 sliding scale dose subcut USEASDIRECTD #15 mL 03/14/23 [Rx Last Taken 04/03/23 22:00 28 Units] ondansetron HCl 4 mg tablet 8 mg PO Q8H 04/04/23 [History Last Taken 05/04/23] insulin NPH isoph U-100 human 100 unit/mL subcutaneous suspension 44 unit subcut QHS 04/24/23 [History Last Taken 05/04/23 22:45] labetalol 100 mg tablet 200 mg (2 x 100 mg) PO BID #60 tabs 04/24/23 [Rx Last Taken 05/04/23 22:45] diphenhydramine HCl 50 mg/30 mL oral liquid (NightTime Sleep Aid (diphenhydramine)) 12.5 mg PO QHS 05/05/23 [History Last Taken Unknown] enoxaparin 40 mg/0.4 mL subcutaneous syringe (Lovenox) 40 mg subcut DAILY 05/05/23 [History Last Taken Unknown] Allergy/AdvReac Type Severity Reaction Status Date / Time No Known Allergies Allergy Verified 05/05/23 06:21 Family History Mother Fibroids DVT (deep venous thrombosis) Grandmother Diabetes Aunt Diabetes Surgical History (Updated 05/06/23 @ 10:[address] 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 current occupational exposures/hazards: No pets and animals: Yes (Not managing litterbox) pets and animals: cat(s) and dog(s) history of recent travel: No sexually active: Yes Smoking Status: Never smoker Electronic Cigarette Use: not used second hand exposure: No alcohol intake: former details: not while substance use type: does not use well-balanced diet: daily or most days caffeine: No eating out: 1-3 times/week during the past year weight has: increased > 10 lbs what type of physical activity do you participate in: none roshni/cheondoism: Spiritism seatbelt use: always do you feel safe at home: Yes additional social history: 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[place] [employer]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 Parents passed from [facility] 1 week apart- card sent ROS Constitutional Constitutional: Denies fever(s) Integumentary Integumentary: Reports other Details: denies any breast or nipple pain, attempting to latch baby and pumping q 3 hours, getting more colostrum yesterday than last night, questions on latching positions, nipple shield and pump settings Exam General alert Respiratory Respiratory: normal respiratory effort Skin normal color Latch Score L - Latch Latch: Repeated attempts, holds nipple in mouth, stimulate to suck (1) A - Audible Swallowing Audible Swallowing: A few with stimulation (1) T - Type of Nipple Type of Nipple: Everted (after stimulation) (2) C - Comfort (Breast/Nipple) Comfort (Breast/Nipple): Soft and/or tender (2) H - Hold (Positioning) Hold (Positioning): Full assist (staff holds at breast) (0) Total Score Total Score:: 6 Observation Feeding Observed:: Yes IBCLC Feeding Assessment Feeding Assessment Mother's feeding plans during 's hospitalization: Breastfeed Feeding Plan Feeding Plan: Plan to continue to attempt feed at breast q 3 hours, offering with and without shield, baby in SCN so plan at this point is to cup feed with donor milk, assisted on hand expression and making sure can see milk in shield and hear swallowing, educated on pump settings and flange size Interventions IBCLC/CLC Interventions: Nipple shield, Pumping, Hand expression and Breast Massage Education IBCLC/CLC Education: How to perform hand expression, [id number], Risks of nipple shield use and Use of breast pump Charges/Coding Visit Charges Inpatient E&M: 37420 Init Hosp L1
[2023-05-07 15:09] VITALS: BP 131/55; PULSE 56; RESP 14; TEMP 36.5; O2SAT 99
[2023-05-07 15:35] LABS: Bedside Glucose 108 mg/dL (74-106)
[2023-05-07 23:15] VITALS: BP 150/74; PULSE 102; RESP 18; TEMP 36.7; O2SAT 96
[2023-05-07 23:56] LABS: Bedside Glucose 84 mg/dL (74-106)
[2023-05-08] MEDS: Acetaminophen 500 MG Tablet 1000 MG PO ×4 (00:19→18:39)
[2023-05-08] MEDS: Naproxen 500 MG Tablet PO ×3 (00:34→16:53)
[2023-05-08] MEDS: oxyCODONE 5 MG Tablet PO (04:00)
[2023-05-08 04:01] VITALS: BP 141/56; PULSE 81; RESP 18; TEMP 36.5
[2023-05-08 06:39] LABS: Bedside Glucose 108 mg/dL (74-106)
[2023-05-08 08:09] VITALS: BP 143/86; PULSE 86; RESP 16; TEMP 36.6
[2023-05-08] MEDS: metFORMIN HCl 1,000 MG Tablet 1000 MG PO ×2 (08:52→18:48)
[2023-05-08] MEDS: Sertraline 50 MG Tablet PO (11:17)
[2023-05-08] MEDS: Senna/Docusate Sodium 1 Tablet PO (11:17)
[2023-05-08] MEDS: Enoxaparin 40 MG/0.4 ML Syringe SC (12:45)
[2023-05-08] MEDS: Labetalol 100 MG Tablet 300 MG PO ×2 (14:04→22:29)
[2023-05-08 14:37] VITALS: BP 127/73; PULSE 90; RESP 16
--- NOTE | 2023-05-08 14:53 | PCM.PN.OB ---
Subjective Subjective Patient doing well without complaints. Tolerating PO. Ambulating and voiding without difficulty. feeding well. Denies chest pain, shortness of breath, calf pain/swelling, fevers, chills, lightheadedness. Objective Data Objective Data Vital Signs: Vital Signs Temp Pulse Resp BP Pulse Ox O2 Del Method O2 Flow Rate 97.8 F 90 16 127/73 H 96 Room Air 5 05/08/23 08:09 05/08/23 14:37 05/08/23 14:37 05/08/23 14:37 05/07/23 23:15 05/08/23 14:37 05/06/23 03:15 Oxygen Flow Rate (L/min) 5 Oxygen Delivery Method Room Air Weight: 245 lb 2.464 oz Body Mass Index (BMI) 46.3 Intake & Output: Intake and Output for Last 24 Hours 05/06/23 05/07/23 05/08/23 23:59 23:59 23:59 Intake Total 1143.33 / 1143.33 Output Total 2700 / 2700 Balance -1556.67 / -1556.67 Lab / Micro Data 05/06/23 06:45 05/05/23 06:00 Labs: Laboratory Results - last 24 hr 05/07/23 15:14: POC Glucose 108 H 05/07/23 23:31: POC Glucose 84 05/08/23 06:19: POC Glucose 108 H ROS Constitutional Constitutional: Reports systems reviewed and no addt'l complaints, except as documented Cardiovascular Cardiovascular: Reports systems reviewed and no addt'l complaints, except as documented Respiratory/Chest Respiratory/Chest: Reports systems reviewed and no addt'l complaints, except as documented Gastrointestinal Gastrointestinal: Reports systems reviewed and no addt'l complaints, except as documented Physical Exam Const alert, oriented x3 and no apparent distress HEENT Head and Scalp: atraumatic Resp normal respiratory effort GI soft to palpation and non-tender Inspection: incision intact, healing well and drainage (none) Bimanual Exam - Vag & Uterus: uterus non-tender Uterus Palpation: uterus fundus firm (below Umbilicus) Assessment & Plan (1) Status post section: COMMENT: arturo DELEON (2) Hypertension affecting : COMMENT: labetalol. EKG ordered. baseline cmp and urine pr cr ratio. IOL 37 weeks PLAN: Plan s/p LTCS PPD # 3 1. routine post care 2. breast feeding- support given 3. rh positive 4. rubella immune increase labetalol to 300 TID
--- NOTE | 2023-05-08 17:24 | CASEMGMT ---
Sw met with mother of baby (RADHA Salazar) at bedside. - Sw introduced self and explained reason for sw involvement. - Sw completed [place] Depression scale with MOB. Her score was a 5. - Sw does not have any concerns at this time regarding MOB. Would be ok from social work standpoint to discharge. - Sw will complete full psychosocial assessment note at later time.
[2023-05-08 20:00] VITALS: BP 140/95; PULSE 90; RESP 17; TEMP 36.9; O2SAT 97
[2023-05-08 22:51] LABS: Bedside Glucose 99 mg/dL (74-106)
[2023-05-09] MEDS: Naproxen 500 MG Tablet PO ×2 (00:56→09:43)
[2023-05-09] MEDS: Acetaminophen 500 MG Tablet 1000 MG PO ×3 (00:57→14:07)
[2023-05-09 02:00] VITALS: BP 136/64; PULSE 90; RESP 15; TEMP 36.4
[2023-05-09] MEDS: Labetalol 100 MG Tablet 300 MG PO ×2 (06:23→14:08)
--- NOTE | 2023-05-09 06:29 | PCM.PN.OB ---
Subjective Subjective Patient doing well without complaints. Tolerating PO. Ambulating and voiding without difficulty. feeding well. Denies chest pain, shortness of breath, calf pain/swelling, fevers, chills, lightheadedness. Objective Data Objective Data Vital Signs: Vital Signs Temp Pulse Resp BP Pulse Ox O2 Del Method O2 Flow Rate 97.6 F L 90 15 136/64 H 97 Room Air 5 05/09/23 02:00 05/09/23 02:00 05/09/23 02:00 05/09/23 02:00 05/08/23 20:00 05/09/23 02:00 05/06/23 03:15 Oxygen Flow Rate (L/min) 5 Oxygen Delivery Method Room Air Weight: 245 lb 2.464 oz Body Mass Index (BMI) 46.3 Lab / Micro Data 05/06/23 06:45 05/05/23 06:00 Labs: Laboratory Results - last 24 hr 05/08/23 06:19: POC Glucose 108 H 05/08/23 22:27: POC Glucose 99 ROS Constitutional Constitutional: Reports systems reviewed and no addt'l complaints, except as documented Cardiovascular Cardiovascular: Reports systems reviewed and no addt'l complaints, except as documented Respiratory/Chest Respiratory/Chest: Reports systems reviewed and no addt'l complaints, except as documented Gastrointestinal Gastrointestinal: Reports systems reviewed and no addt'l complaints, except as documented Physical Exam Const alert, oriented x3 and no apparent distress HEENT Head and Scalp: atraumatic Resp normal respiratory effort GI soft to palpation and non-tender Inspection: incision intact, healing well and drainage (none) Bimanual Exam - Vag & Uterus: uterus non-tender Uterus Palpation: uterus fundus firm (below Umbilicus) Assessment & Plan (1) Status post section: COMMENT: arturo DELEON (2) Hypertension affecting : COMMENT: labetalol. EKG ordered. baseline cmp and urine pr cr ratio. IOL 37 weeks PLAN: Plan s/p LTCS PPD # 4 1. routine post care 2. breast feeding- support given 3. rh positive 4. rubella immune dc on labetalol to 300 TID
--- NOTE | 2023-05-09 06:30 | DCINST_ITS ---
Discharge Instructions Diet Discharge Diet: No restrictions Activity Discharge Activity: May Not Drive (for 2 weeks or while taking narcotic pain medications.), May Shower and May Take a Tub Bath (in 7 days) May shower in (days): 0 May resume sexual activity in: 4-6 weeks Weight Bearing Status: Full weight bearing Lifting Restrictions: 20 pounds Dressing / Incision Call your doctor if your incision/area has: Continuous Slow Oozing, Sudden Increased Bleeding, Increased Pain/ Swelling, Increased Redness and Foul Smelling Discharge Call your doctor if you observe: Fever of 101 or Higher and Using more than 1 pad per hour (for 2 hours) Suture Line Care: Avoid Pulling/Pushing and Avoid Pinching/Bending Cleanse incision/area with: Soap & Water and Keep Dressing Clean & Dry Follow Up Care Please Follow Up With: Elaine Fine MD When: Call [phone] to make an appointment for an incision check in 1-2 weeks. Test Results: Test results from this visit will be discussed in further detail at your follow- up appointment, if applicable. Discharge Plan Admission Admit Date/Time: 05/05/23 07:19 Attending Provider: Raeann Hairston Primary Care Provider: Antwon Rodríguez Consulting Providers: Myra Matta NP Discharge Orders/Prescriptions Prescriptions: New enoxaparin [Lovenox] 40 mg/0.4 mL syringe 40 mg subcut Q12H 42 Days Qty: 33.6 0RF oxycodone-acetaminophen [Percocet] 5-325 mg tablet 1 tab PO Q6H PRN (Reason: pain) 7 Days Qty: 20 0RF naproxen [naproxen] 500 mg tablet 500 mg PO BID PRN PRN (Reason: Pain) Qty: 30 1RF labetalol 300 mg tablet 300 mg PO TID Qty: 90 0RF Continued sertraline [Zoloft] 50 mg tablet 50 mg PO DAILY metformin 1,000 mg tablet 1,000 mg PO BID Qty: 60 4RF Discontinued insulin lispro [Humalog KwikPen Insulin] 100 unit/mL insulin pen 1 sliding scale dose subcut USEASDIRECTD Qty: 15 6RF Rx Instructions: 2 units if 150-175, 4 units if 176-200, 6 units if 201-225, 8 units if 226- 250, call if over 250 insulin NPH isoph U-100 human 100 unit/mL suspension 44 unit SUBCUT QHS No Action loratadine [Claritin] 10 mg tablet 10 mg PO DAILY diphenhydramine HCl [Benadryl] 25 mg capsule 25 mg PO QHS PRN (Reason: sleep and allergies) PNV-DHA 27 mg iron-1 mg -300 mg capsule 1 cap PO DAILY enoxaparin 40 mg/0.4 mL syringe 40 mg subcut DAILY aspirin 81 mg tablet,delayed release (DR/EC) 81 mg PO DAILY (DME) Dexcom G6 [employer] Attendant Misc See Rx Instructions .Route Qty: 4 5RF Rx Instructions: As directed labetalol 100 mg tablet 200 mg PO BID Qty: 60 12RF acetaminophen [Tylenol] 325 mg Tablet 1,000 mg PO PRN PRN (Reason: Pain) ferrous sulfate [iron] 325 mg (65 mg iron) Tablet 325 mg PO DAILY ondansetron HCl 4 mg tablet 8 mg PO Q8H NightTime Sleep Aid (diphen) 50 mg/30 mL liquid 12.5 mg PO QHS enoxaparin [Lovenox] 40 mg/0.4 mL syringe 40 mg subcut DAILY (DME) blood-glucose meter Misc See Rx Instructions .MEDSUPPLY Qty: 1 0RF Rx Instructions: As directed- Test fasting and 2 hours after meals (DME) lancets Misc See Rx Instructions .MEDSUPPLY Qty: 100 10RF Rx Instructions: As directed test fasting and 2 hours pp(4 times per day) (DME) Accutrend Glucose test strips Strip See Rx Instructions .Route Qty: 50 12RF Rx Instructions: As directed test fasting and 2 hours pp(4 times per day) Referrals / Follow Up: Antwon Rodríguez, [Primary Care Provider] - Disposition Disposition (needs filled in before D/C Order can be placed): Home, Self Care
--- NOTE | 2023-05-09 06:38 | PCM.DC.SUM ---
Providers Date of Admission: 05/05/23 Primary Care Physician: Dr. Antwon Rodríguez, Consultations 05/07/23 09:25 Consult: Customer Marketing Manager Routine Consulting Provider: Myra Matta NP Reason for Consult: SCN baby EMERGENT Consult: No MD Notified: Yes Date Notified: 05/07/23 Time Notified: 09:25 Method of Notification: Verbal Reason For Visit: Diagnosis Discharge Diagnosis (1) Status post section: Status: Acute Code(s): Z98.891 - History of uterine scar from previous surgery (2) Hypertension affecting : Status: Acute Code(s): O16.9 - Unspecified maternal hypertension, unspecified trimester Plan s/p LTCS PPD # 4 1. routine post care 2. breast feeding- support given 3. rh positive 4. rubella immune dc on labetalol to 300 TID Medications at Discharge Home Medications diphenhydramine HCl 25 mg capsule (Benadryl) 25 mg PO QHS PRN sleep and allergies 04/08/22 loratadine 10 mg tablet (Claritin) 10 mg PO DAILY allergies 04/08/22 enoxaparin 40 mg/0.4 mL subcutaneous syringe 40 mg subcut DAILY factor IV 11/04/22 multivitamin no.47-iron fum 27 mg-folate no.1 1 mg-dha 300 mg capsule (PNV-DHA) 1 cap PO DAILY Check with primary doctor 11/04/22 sertraline 50 mg tablet (Zoloft) 50 mg PO DAILY anxiety 11/04/22 blood sugar diagnostic (Accutrend Glucose test strips) #50 ea 11/15/22 blood-glucose meter #1 ea 11/15/22 lancets #100 ea 11/15/22 aspirin 81 mg tablet,delayed release 81 mg PO DAILY 11/21/22 metformin 1,000 mg tablet 1,000 mg PO BID #60 tabs 12/14/22 acetaminophen 325 mg tablet (Tylenol) 1,000 mg PO PRN PRN Pain 03/13/23 ferrous sulfate 325 mg (65 mg iron) tablet (iron) 325 mg PO DAILY anemia 03/13/23 blood-glucose meter,continuous (Dexcom G6 Logistics Lead) #4 ea 03/14/23 ondansetron HCl 4 mg tablet 8 mg PO Q8H 04/04/23 labetalol 100 mg tablet 200 mg (2 x 100 mg) PO BID #60 tabs 04/24/23 diphenhydramine HCl 50 mg/30 mL oral liquid (NightTime Sleep Aid (diphenhydramine)) 12.5 mg PO QHS 05/05/23 enoxaparin 40 mg/0.4 mL subcutaneous syringe (Lovenox) 40 mg subcut DAILY 05/05/23 enoxaparin 40 mg/0.4 mL subcutaneous syringe (Lovenox) 40 mg (0.4 mL) subcut Q12H 6 weeks #33.6 mL 05/09/23 labetalol 300 mg tablet 300 mg PO TID #90 tabs 05/09/23 naproxen 500 mg tablet 500 mg PO BID PRN PRN Pain #30 tabs 05/09/23 oxycodone-acetaminophen 5 mg-325 mg tablet (Percocet) 1 tab PO Q6H PRN pain 7 days #20 tabs 05/09/23 Hospital Course Summary of Care Provided Hospital Course: Patient presented in active labor P PROM at 36 weeks made change to 5 cm and developed preeclampsia superimposed on chronic hypertension. She also had a complicated by class B diabetes managed with insulin and factor V Leiden on Lovenox and nonclassical CAH but was not on any steroids in the and therefore no steroids were indicated around delivery. Patient experienced an arrest of dilation and the decision was made to perform a primary low-transverse . After patient underwent a routine recovery with return of bowel and bladder function was ambulating well tolerating p.o. and had adequate pain control with oral pain pills and was stable for discharge to home on postop day #4 with some adjusting of labetalol increasing to 300 3 times daily for blood pressure regulation. Weight / BMI Weight Weight: 245 lb 2.464 oz Body Mass Index (BMI) 46.3 ABG / Lab / Microbiology Data 05/06/23 06:45 05/05/23 06:00 Laboratory: Laboratory Results - last 24 hr 05/08/23 06:19: POC Glucose 108 H 05/08/23 22:27: POC Glucose 99 D/C Instructions Discharge Diet: No restrictions May shower in (days): 0 May resume sexual activity in: 4-6 weeks Weight Bearing Status: Full weight bearing Call your doctor if your incision/area has: Continuous Slow Oozing, Sudden Increased Bleeding, Increased Pain/ Swelling, Increased Redness and Foul Smelling Discharge Call your doctor if you observe: Fever of 101 or Higher and Using more than 1 pad per hour (for 2 hours) Suture Line Care: Avoid Pulling/Pushing and Avoid Pinching/Bending Cleanse incision/area with: Soap & Water and Keep Dressing Clean & Dry Please Follow Up With: Elaine Fine MD When: Call [phone] to make an appointment for an incision check in 1-2 weeks. Meaningful Use Info Meaningful Use Diagnoses (Choose all that apply): None applicable Discharge Plan Admission Admit Date/Time: 05/05/23 07:19 Attending Provider: Raeann Hairston Primary Care Provider: Antwon Rodríguez Consulting Providers: Myra Matta NP Discharge Orders/Prescriptions Prescriptions: New enoxaparin [Lovenox] 40 mg/0.4 mL syringe 40 mg subcut Q12H 42 Days Qty: 33.6 0RF oxycodone-acetaminophen [Percocet] 5-325 mg tablet 1 tab PO Q6H PRN (Reason: pain) 7 Days Qty: 20 0RF naproxen [naproxen] 500 mg tablet 500 mg PO BID PRN PRN (Reason: Pain) Qty: 30 1RF labetalol 300 mg tablet 300 mg PO TID Qty: 90 0RF Continued sertraline [Zoloft] 50 mg tablet 50 mg PO DAILY metformin 1,000 mg tablet 1,000 mg PO BID Qty: 60 4RF Discontinued insulin lispro [Humalog KwikPen Insulin] 100 unit/mL insulin pen 1 sliding scale dose subcut USEASDIRECTD Qty: 15 6RF Rx Instructions: 2 units if 150-175, 4 units if 176-200, 6 units if 201-225, 8 units if 226-250, call if over 250 insulin NPH isoph U-100 human 100 unit/mL suspension 44 unit SUBCUT QHS No Action loratadine [Claritin] 10 mg tablet 10 mg PO DAILY diphenhydramine HCl [Benadryl] 25 mg capsule 25 mg PO QHS PRN (Reason: sleep and allergies) PNV-DHA 27 mg iron-1 mg -300 mg capsule 1 cap PO DAILY enoxaparin 40 mg/0.4 mL syringe 40 mg subcut DAILY aspirin 81 mg tablet,delayed release (DR/EC) 81 mg PO DAILY (DME) Dexcom G6 Logistics Lead Misc See Rx Instructions .Route Qty: 4 5RF Rx Instructions: As directed labetalol 100 mg tablet 200 mg PO BID Qty: 60 12RF acetaminophen [Tylenol] 325 mg Tablet 1,000 mg PO PRN PRN (Reason: Pain) ferrous sulfate [iron] 325 mg (65 mg iron) Tablet 325 mg PO DAILY ondansetron HCl 4 mg tablet 8 mg PO Q8H NightTime Sleep Aid (diphen) 50 mg/30 mL liquid 12.5 mg PO QHS enoxaparin [Lovenox] 40 mg/0.4 mL syringe 40 mg subcut DAILY (DME) blood-glucose meter Misc See Rx Instructions .MEDSUPPLY Qty: 1 0RF Rx Instructions: As directed- Test fasting and 2 hours after meals (DME) lancets Misc See Rx Instructions .MEDSUPPLY Qty: 100 10RF Rx Instructions: As directed test fasting and 2 hours pp(4 times per day) (DME) Accutrend Glucose test strips Strip See Rx Instructions .Route Qty: 50 12RF Rx Instructions: As directed test fasting and 2 hours pp(4 times per day) Referrals / Follow Up: Antwon Rodríguez DO [Primary Care Provider] - Disposition Disposition (needs filled in before D/C Order can be placed): Home, Self Care
[2023-05-09 07:43] VITALS: BP 132/70; PULSE 90; RESP 18; TEMP 36.6
[2023-05-09] MEDS: metFORMIN HCl 1,000 MG Tablet 1000 MG PO (07:56)
[2023-05-09] MEDS: Enoxaparin 40 MG/0.4 ML Syringe SC (09:43)
[2023-05-09] MEDS: Senna/Docusate Sodium 1 Tablet PO (09:43)
[2023-05-09] MEDS: Sertraline 50 MG Tablet PO (09:43)
[2023-05-09 12:54] LABS: Bedside Glucose 79 mg/dL (74-106)
[2023-05-09 14:05] VITALS: BP 141/70; PULSE 94; RESP 18; TEMP 36.4
--- NOTE | 2023-05-11 09:41 | CASEMGMT ---
Social Work Assessment Labor and Delivery Unit Patient Address:[address] [place] [address] Phone number: [phone] Date of Referral: 05/06/23 Time of Referral:? [id number] Referred By: Raeann Hairston Date of Intervention: ??05/08/23 Time of Intervention:? 927 Reason for Referral:? Mental Health' Sw presented to bedside, met with both parents. Sw introduced self and explained sw role during current hospitalization. Sw completed psychosocial assessment, provided support and literature/ education regarding depression, safe sleep, and shaken baby. History obtained from: medical records and mother of baby (CHRISTOS- Martin)?and father of baby (FODel- Ashok)? Household composition: Residing in family home at this time is parents, their pets and when discharged. Patient's parent/guardian status:? Parents state that they have been together since 2010.They were set up on a blind date and at that time they both knew that they were going to be together. ?[place] baby is first baby for both parents. When talking with MOB alone she denies abuse/ domestic violence. Medical History:This is CHRISTOS's third . MOB reports thats that they were two other times and those ended in miscarriages. Parents then pursued IVF which resulted in successful . CHRISTOS received routine care with [place]. CHRISTOS presented in labor at 36 weeks gestation. MOB required delivery. Baby girl, Arianna Kunz was born weighing 6lb 9oz, her apgars were 6 and 9. Baby is now in [facility] working on feeds. Educational Status: Both parents completed high school, MOB has college degree. Parents deny concerns with learning, reading or writing. 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 TAMEKA is employed as a [employer] Engineer for [employer]. TAMEKA is able to have this week off of work. Infant Supplies:?? Parents report they have been able to obtain all necessary items for baby including car seat, safe sleep space, clothes, diapers and wipes. Childcare/Caregiver(s):? Parents state that they will do their best to provide childcare to patient, but when necessary they have several family members that will be able to watch her while parents are at work. Transportation:?? Parents have reliable transportation, no barriers at this time. Programs/Agencies Involved: ??CHRISTOS is connected to outpatient mental health supports through [facility]. She sees counselor, Kell York. CHRISTOS is also connected to ab psychiatrist who prescribes her psychotropic medications (cymbalta, celexa, zoloft)? Children Services/Legal Issues:??? No involvement, no issues or concerns warranting referral at this time. Behavioral Health Issues: ? ?Mental Health History:???CHRISTOS has been diagnosed with anxiety and an adjustment disorder. Nina educated MOB and TAMEKA on signs and symptoms of baby blues and post depression. CHRISTOS stated that she has already been preparing herself to experiences one or both of these. CHRISTOS reports that she and TAMEKA have been having ongoing conversations about how TAMEKA is able to be supportive and helpful when CHRISTOS is struggling. FOB stepped out of room and sw completed Concepcion Screen with CHRISTOS. CHRISTOS has a score of 5. Nina provided support and encouraged CHRISTOS to stay connected to her counselor during this period. CHRISTOS stated that she is able to increase sessions if necessary. Substance Use History:?CHRISTOS denies substance use both historically and during . ?Family History:??CHRISTOS denies family history of substance use. Drug Screens: ?Urine screens not seen in chart. ? Family/Social Stressors:?CHRISTOS recently lost both of her parents within several weeks of each other. CHRISTOS states that she was extremely close with her parents and she does not feel as though she has fully processed the fact that they are both gone. CHRISTOS stated that she wanted to get through the end of her before she allowed herself to start the grieving process. CHRISTOS states that she fully anticipates struggling with due to this issue. Much support and encouragement provided. Support Systems: Parents report they have some family and friends who are supportive. Maternal aunts and uncles. Depression/Shaken Baby/Safe Sleeping: Sw provided literature and education on signs and symptoms of baby blues and post depression both during and . Parents reported that this is something they have been discussing a lot amongst themselves. They have been processing what this phase will look like and how to work through it as a team. Sw encouraged parents to continue having those conversations. Sw eduated parents to never shake a baby and ABCs of safe sleep. Parents expressed understanding of both topics. ?? ASSESSMENT:? Both parents at bedside, initially discussing concerns that they have been experiencing dealing with two different hospital systems ([facility] and [facility]- baby in [facility]). Support provided by Sussy, Director of [facility] [place] and this sw'er. Parents were pleasant and engaging during sw assessment. Parents receptive to information provided and sw involvement and support. ? PLAN:? Sw continue to provide support and encouragement throughout MOB's hospital stay (hotel status) and baby's admission to [facility]. Sw provided information on [facility], sw to follow up to ensure parents are receptive to referral to be made when baby is ready for discharge. ?No other services requested or indicated. Tad Donald, COLLECTIONS REP, JEWELRY INSPECTOR
== END 2023-05-09 14:10 | disposition home or self-care (01) | DRG 787 ==
LOC: WPOUT 07:22 → WP 07:22
PROVIDERS: Obstetrics & Gynecology; Admitting Provider Obstetrics & Gynecology; PCP Family Medicine; Referring Provider Obstetrics & Gynecology; Visit Provider Obstetrics & Gynecology
DX: O11.4 Pre-existing hypertension with pre-eclampsia, complicating childbirth (principal); O99.12 Other diseases of the blood and blood-forming organs and certain disorders involving the immune mechanism complicating childbirth; D68.2 Hereditary deficiency of other clotting factors; O99.354 Diseases of the nervous system complicating childbirth; O60.14X0 Preterm labor third trimester with preterm delivery third trimester, not applicable or unspecified; E25.0 Congenital adrenogenital disorders associated with enzyme deficiency; O26.62 Liver and biliary tract disorders in childbirth; K76.0 Fatty (change of) liver, not elsewhere classified; G47.33 Obstructive sleep apnea (adult) (pediatric); J45.20 Mild intermittent asthma, uncomplicated; F43.22 Adjustment disorder with anxiety; F41.9 Anxiety disorder, unspecified; K80.20 Calculus of gallbladder without cholecystitis without obstruction; O99.62 Diseases of the digestive system complicating childbirth; O99.52 Diseases of the respiratory system complicating childbirth; O99.284 Endocrine, nutritional and metabolic diseases complicating childbirth; O24.424 Gestational diabetes mellitus in childbirth, insulin controlled; O24.425 Gestational diabetes mellitus in childbirth, controlled by oral hypoglycemic drugs; O26.23 Pregnancy care for patient with recurrent pregnancy loss, third trimester; O99.344 Other mental disorders complicating childbirth; O99.214 Obesity complicating childbirth; O42.913 Preterm premature rupture of membranes, unspecified as to length of time between rupture and onset of labor, third trimester; O62.1 Secondary uterine inertia; Z37.0 Single live birth; Z3A.36 36 weeks gestation of pregnancy; Z79.01 Long term (current) use of anticoagulants; Z79.82 Long term (current) use of aspirin; Z79.899 Other long term (current) drug therapy; Z86.16 Personal history of COVID-19
CPT/HCPCS: 59025; 59050; 76815; 80053; 82570; 82962; 84156; 85025; 85027; 86780; 86850; 86900; 86901; 87653; 99221; J7120; A4216; G0378; J0290; J2405

== ENCOUNTER → 2023-06-15 | Outpatient (CLI) | payer BC, SELFPAY | END | disposition home or self-care (01) | LOC: LABSPEC 13:16 | PROVIDERS: PCP Family Medicine; Referring Provider Obstetrics & Gynecology; Visit Provider Obstetrics & Gynecology | DX: L24.A9 Irritant contact dermatitis due friction or contact with other specified body fluids (principal) | CPT/HCPCS: 87070; 87205 ==

== ENCOUNTER → 2024-01-10 | Outpatient (CLI) | payer BC, SELFPAY ==
--- OUTSIDE RECORDS SUMMARY | 2024-01-10 09:58 | XMS RPT_ITS | CCD ---
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 Concetta Kolb Primary Care Unavailmarietta DUONG, Dr. WYLIE Attending Unavailable Anne, Dr. Russel Teran Referring Unavaila ble Eda Duong Attending Unavailable Eda Duong Admitting Unavailable RUSSEL RODRÍGUEZ Primary Care Unavailable ALPESH RODRIGUEZ Consulting Unavailable RUSSEL ZAPIEN Consulting Unavailable RUSSEL RODRÍGUEZ Primary Care Unavailable LUISA BARROSO Attending Unavailable JAIDA SHEPARD Referring Unavailable RUSSEL RODRÍGUEZ Primary Care Unavailable LUISA BARROSO Attending Unavailable JAIDA SHEPARD Referring Unavailable CHAIM LANDAVERDE Referring Unavailabl e RUSSEL RODRÍGUEZ Primary Care Unavailable BETZAIDA HUTCHINSON Attending Unavailable BOLIVAR HARDY Attending Unavailable RUSSEL RODRÍGUEZ Primary Care Unavailable CHAIM LANDAVERDE Referring Unavailabl e NICANOR DUTTON Attending Unavailable RUSSEL RODRÍGUEZ Primary Care Unavailable JOELANTHONYCHAIM Referring Unavailabl e ANNERUSSEL MCCORMACK Primary Care Unavailable MARCANTHONYCHAIM Referring Unavailabl e SAIMA, CHAIM De León Attending Unavailabl e CHAIM LANDAVERDE Referring Unavailabl MODE Pierce Attending Unavailable RUSSEL RODRÍGUEZ Primary Care Unavailable NICANOR DUTTON Attending Unavailable RUSSEL RODRÍGUEZ Primary Care Unavailable MARCANTHCHAIM STREET Referring Unavailabl e MARCANTHYENIFER, CHAIM E Referring Unavailabl e NICANOR DUTTON Attending Unavailable RUSSEL RODRÍGUEZ A Primary Care Unavailable CHAIM LANDAVERDE Referring Unavailabl e ANNE, RUSSEL A Primary Care Unavailable MARCANTHONY, CHAIM E Attending Unavailabl e MARCANTHONY, CHAIM E Attending Unavailabl e ANNE, RUSSEL A Primary Care Unavailable MARCANTHONY, CHAIM E Referring Unavailabl e MARIJANICANOR Attending Unavailable ANNE, RUSSEL A Primary Care Unavailable MARCANTHONY, CHAIM E Referring Unavailabl e MARCANTHONY, CHAIM E Referring Unavailabl e BOLIVAR HARDY Attending Unavailable ANNE, RUSSEL A Primary Care Unavailable MARCANTHONY, CHAIM E Referring Unavailabl e RODRIGUEZ, MODE A Attending Unavailable ANNE, RUSSEL A Primary Care Unavailable MARCANTHONY, CHAIM E Referring Unavailabl e ANEN, RUSSEL A Primary Care Unavailable LUISA BARROSO Attending Unavailable MARCANTHONY, CHAIM E Referring Unavailabl e MARIJA, NICANOR Attending Unavailable ANNE, RUSSEL A Primary Care Unavailable ANNE, RUSSEL A Primary Care Unavailable SILVIA MCDOWELL Attending Unavailable MARCANTHONY, CHAIM E Referring Unavailabl e RODRIGUEZ, MODE A Attending Unavailable ANNE, RUSSEL A Primary Care Unavailable MARCANTHONY, CHAIM E Referring Unavailabl e CHASIDYJULIAN Attending Unavailable ANNE, RUSSEL A Primary Care Unavailable MARCANTHONY, CHAIM E Referring Unavailabl e MARCANTHONY, CHAIM E Referring Unavailabl e RODRIGUEZ, MODE A Attending Unavailable ANNE, RUSSEL A Primary Care Unavailable LUISA BARROSO Attending Unavailable LUISA BARROSO Attending Unavailable RODRIGUEZ, MODE A Attending Unavailable ANNE, RUSSEL A Primary Care Unavailable MARCANTHONY, CHAIM E Referring Unavailabl e CHASIDYJULIAN Attending Unavailable ANNE, RUSSEL A Primary Care Unavailable MARCANTHONY, CHAIM E Referring Unavailabl e CHASIDYJULIAN Attending Unavailable PARVEZ DA SILVA Attending Unavailable ANNE, RUSSEL A Primary Care Unavailable MARCANTHONY, CHAIM E Referring Unavailabl e RODRIGUEZ, MODE A Attending Unavailable ANNE, RUSSEL A Primary Care Unavailable MARCANTHONY, CHAIM E Referring Unavailabl e ANNE, RUSSEL A Primary Care Unavailable BETZAIDA HUTCHINSON Attending Unavailable Concetta Day DO Primary Care Provider [phone] Russel Rodríguez DO Unavailable Medications Current Medications Medication Drug Class(es) Dates Sig (Normalized) Sig (Original) azelastine hydrochloride 0.137 mg/actuat metered dose nasal spray (1 source) Histamine-1 Receptor Antagonist Start: 10-21-2023 End: 11-05-2023 take 2 spray(s) nasal route twice daily azelastine (Astelin) 137 mcg (0.1 %) nasal spray Indications: Rhinosinusitis Administer 2 sprays into each nostril 2 times a day for 15 days. Use in each nostril as directed 30 mL 0 10/21/2023 11/05/2023 Active escitalopram 10 mg oral tablet (1 source) Serotonin Reuptake Inhibitor Start: 10-20-2023 escitalopram (Lexapro) 10 mg tablet vit/iron fum/folic ac ( VIT-FE FUMARATE-FA PO) (1 source) take 1 capsule by mouth once daily before mealtime vit/iron fum/folic ac ( VIT-FE FUMARATE-FA PO) Take 1 capsule by mouth once daily. 0 Active Completed/Discontinued Medications Medication Drug Class(es) Dates Sig (Normalized) Sig (Original) cosyntropin (CORTROSYN) injection 0.25 mg (1 source) Start: 02-10-2021 End: 02-10-2021 cosyntropin (CORTROSYN) injection 0.25 mg Problems Problem Classification Problem Date Documented Date Episodic/Chronic Coagulation and hemorrhagic disorders (1 source) Activated protein C resistance; Translations: [ACTIVATED PROTEIN C RESISTANCE] Onset: 08-23-2022 Chronic Diabetes mellitus without complication (1 source) Prediabetes; Translations: [PREDIABETES] Onset: 08-23-2022 Episodic Essential hypertension (1 source) Essential (primary) hypertension; Translations: [ESSENTIAL PRIMARY HYPERTENSION] Onset: 08-23-2022 Chronic Female infertility (1 source) Female infertility, unspecified; Translations: [FEMALE INFERTILITY UNSPECIFIED] Onset: 08-23-2022 Chronic Other aftercare (1 source) care home (current) use of oral hypoglycemic drugs; Translations: [FURNACE FILLER USE ORAL HYPOGLYCEMIC DX] Onset: 08-23-2022 Episodic Other aftercare (1 source) Other care home (current) drug therapy; Translations: [OTH FURNACE FILLER CURRENT DRUG THERAPY] Onset: 08-23-2022 Episodic Other complications of ; puerperium affecting management of mother (1 source) Retained portions of placenta and membranes, without hemorrhage; Translations: [RETAIN PORTION PLCNTA MEMB NO HEMOR] Onset: 08-23-2022 Episodic Other connective tissue disease (1 source) Fibromyalgia; Translations: [FIBROMYALGIA] Onset: 08-23-2022 Episodic Other endocrine disorders (1 source) Adrenogenital disorder; 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 Other endocrine disorders (1 source) Polycystic ovarian syndrome; Translations: [POLYCYSTIC OVARIAN SYNDROME] Onset: 08-23-2022 Chronic Other female genital disorders (2 sources) Polyp of corpus uteri; Translations: [POLYP OF CORPUS UTERI] Onset: 08-23-2022 Episodic Other nutritional; endocrine; and metabolic disorders (1 source) Obesity, unspecified; Translations: [OBESITY UNSPECIFIED] Onset: 08-23-2022 Chronic Other upper respiratory infections (1 source) Chronic sinusitis, unspecified; Translations: [Unspecified sinusitis (chronic)] 10-21-2023 Chronic Residual codes; unclassified (1 source) Obstructive sleep apnea (adult) (pediatric); Translations: [OBSTRUCTIVE SLEEP APNEA] Onset: 08-23-2022 Chronic Results Test Name Value Interpretation Reference Range Facil ity Vital Signs Date Time Vital Sign Value Performing Clinician Facility 10-21-2023 09:44-0500 Body height 154.9 cm Gene Adams PA-C Work Phone: [facility] 10-21-2023 09:44-0500 Body mass index (BMI) [Ratio] 40.62 kg/m2 Gene Adams PA-C Work Phone: [facility] 10-21-2023 09:44-0500 Body temperature 98.49 [degF] Gene Adams PA-C Work Phone: [facility] 10-21-2023 09:44-0500 Body weight 97.52 kg Gene Adams PA-C Work Phone: [facility] 10-21-2023 09:44-0500 Diastolic blood pressure 82 mm[Hg] Gene Angie PA-C Work Phone: [facility] 10-21-2023 09:44-0500 Heart rate 97 /min Gene Emeryine PA-C Work Phone: [facility] 10-21-2023 09:44-0500 Respiratory rate 16 /min Gene Emeryine PA-C Work Phone: [facility] 10-21-2023 09:44-0500 SaO2% (BldA) [Mass fraction] 98 % Gene Emeryine PA-C Work Phone: [facility] 10-21-2023 09:44-0500 Systolic blood pressure 132 mm[Hg] Gene Angie PA-C Work Phone: [facility] 02-10-2021 07:12-0400 Body Temperature 98.8 [degF] Jaida Jaycoblall [facility] Work Phone: 02-10-2021 07:12-0400 BP Diastolic 98 mm[Hg] Jaida Maseelall [facility] Work Phone: 02-10-2021 07:12-0400 BP Systolic 177 mm[Hg] Jaida Maseelall [facility] Work Phone: 02-10-2021 07:12-0400 Pulse (Heart Rate) 96 /min Jaida Jaycoblall [facility] Work Phone: Encounters Encounter Date Encounter Type Care Provider Facility Start: 10-21-2023 End: 10-21-2023 Patient encounter procedure Gene Adams PA-C Work Phone: [facility] Procedures Date Procedure Procedure Detail Performing Clinician Start: 10-21-2023 Iaadiadoo respirator y synctial virus Gene Adams PA-C Work Phone: Start: 10-21-2023 POCT BD VERITOR TRIPLEX AG Gene Adams PA-C Work Phone: Start: 02-10-2021 Cortisol total Jaida edgar Work Phone: Start: 02-10-2021 Cortisol total Jaida edgar Work Phone: Plan of Treatment Date Care Activity Detail Author Start: 2041 Zoster Vaccines (1 of 2) Zoster Vaccines (1 of 2) [facility] Start: 03-14-2033 DTaP/Tdap/Td Vaccines (2 - Td or Tdap) DTaP/Tdap/Td Vaccines (2 - Td or Tdap) [facility] Start: 07-07-2023 Influenza vaccination Influenza Vaccine (#1) [facility] Start: 10-20-2021 COVID-19 Vaccine (3 - Pfizer series) COVID-19 Vaccine (3 - Pfizer series) [facility] Start: 07-07-2021 Influenza vaccination Flu vaccine (Season Ended) [facility] Work Phone: Start: 2012 Screening for malignant neoplasm of cervix [facility] Start: 2010 DTaP/Tdap/Td vaccine (1 - Tdap) DTaP/Tdap/Td vaccine (1 - Tdap) [facility] Work Phone: Start: 2010 Hepatitis A Vaccines (1 of 2 - Risk 2-dose series) Hepatitis A Vaccines (1 of 2 - Risk 2-dose series) [facility] Start: 2009 Hepatitis C screening Hepatitis C Screening [facility] Start: 2007 COVID-19 Vaccine (1) COVID-19 Vaccine (1) [facility] Work Phone: Start: 2006 HIV screening HIV screen [facility] Work Phone: Start: 08-18-2006 Varicella vaccination Varicella Vaccines (1 of 2 - 2-dose childhood series) [facility] Start: 1992 Varicella vaccine (1 of 2 - 2-dose childhood series) Varicella vaccine (1 of 2 - 2-dose childhood series) [facility] Work Phone: Start: 1991 Hepatitis B Vaccines (1 of 3 - 3-dose series) Hepatitis B Vaccines (1 of 3 - 3-dose series) [facility] Start: 1991 Hepatitis C screening Hepatitis C screen [facility] Work Phone: Start: 1991 HIV screening HIV Screening [facility] Start: 1991 Lipid panel Lipid Panel [facility] Start: 1991 Yearly Adult Physical Yearly Adult Physical [facility] End: 02-10-2021 17 HYDROXYPROGESTERONE [facility] Work Phone: Payers Date Payer Category Payer Unknown [employer]NELL SARABIA P [id number] 2020-Present [address] [place] [address] [id number] 1991 Unknown [id number] [id number]6 1991 Unknown [id number] 2.16.840.1.653283.3.579.2.598 1991 Unknown [id number] 2.16.840.1.233386.3.579.2.479 1991 Unknown [id number] 2.16.840.1.270654.3.579.2.479 1991 Unknown [id number] 2.16.840.1.750538.3.579.2.479 1991 Unknown [id number] 2.16.840.1.048837.3.579.2.479 1991 Unknown [id number] 2.16.840.1.472316.3.579.2.479 1991 Unknown [id number] 2.16.840.1.689342.3.579.2.479 1991 Unknown [id number] 2.16.840.1.808275.3.579.2.479 1991 Unknown [id number] 2.16.840.1.507221.3.579.2 1991 Unknown [id number] 2.16.840.1.088582.3.579.2 1991 Unknown [id number] 2.16.840.1.917933.3.579.2 1991 Unknown [id number] 2.16.840.1.592047.3.579.2 1991 Unknown [id number] 2.16.840.1.673851.3.579.2 1991 Unknown [id number] 2.16.840.1.867968.3.579.2 1991 Unknown [id number] 2.16.840.1.100401.3.579. 1991 Unknown [id number] 2.840.1.351815.3.579. 1991 Unknown [id number] 2.16.840.1.388796.3.579. 1991 Unknown [id number] 2.16840.1.229492.3.579.2 1991 Unknown [id number] 2.16.840.1.928699.3.579.2 1991 Unknown [id number] 2.16840.1.258502.3.579.2 1991 Unknown [id number] 2.16.840.1.621891.3.579.2 1991 Unknown [id number] 2.16.840.1.253995.3.579.2 1991 Unknown [id number] 2.16.840.1.600644.3.579.2 1991 Unknown [id number] 2.16.840.1.105531.3.579.2 1991 Unknown [id number] 2.16.840.1.328524.3.579.2.479 1991 Unknown [id number] 2.16.840.1.642876.3.579.2.479 1991 Unknown [id number] 2.16.840.1.883383.3.579.2.479 1991 Unknown [id number] 2.16.840.1.275071.3.579.2.479 1991 Unknown [id number] 2.16.840.1.102556.3.579.2.479 1959 Unknown [id number] Social History Date Type Detail Facility Tobacco smoking stat [facility] Unknown if ever smoked [facility] Work Phone: Start: 1991 Sex Assigned At Not on file [facility] Work Phone: Start: 10-21-2023 Tobacco smoking stat [facility] Never smoked tobacco [facility] Work Phone: Start: 10-21-2023 Tobacco use and exposure Smokeless tobacco non-user [facility] Work Phone: Start: 10-21-2023 Alcohol intake Lifetime non-d arsenio (finding) [facility] Work Phone: Start: 10-21-2023 History of Social function [facility] Work Phone: Start: 10-21-2023 Tobacco use panel [facility] Work Phone: Start: 10-11-2023 End: 10-21-2023 Exposure to SARS-CoV-2 (event) Not sure [facility] History of Present illness Narrative 10-21-2023 Gene Adams PA-C - 10/21/2023 9:00 AM EST Note Date & Type Note Facility 10-21-2023 History of Present illness Narrative [facility] STAR NOTE: Name: Martin Mishra, 33 y.o. CSN:[id number] PCP: Concetta Day, DO ALL: No Known Allergies History: Chief Complaint: URI (SORE THROAT, CONGESTION, COUGH X 4 DAYS) Encounter Date: 10/21/2023 10:03hrs HPI: The history was obtained from the patient. Martin is a 33 y.o. female, who presents with a chief complaint of URI (SORE THROAT, CONGESTION, COUGH X 4 DAYS) Patient mentions she is currently breast-feeding and has a 5-month-old at home, she is mentions her significant congestion of the nose, sinus pressure mild nonproductive cough and some sore throat ongoing at this time. She has tried a few options that are available to her with minimal success. She denies any exertional dyspnea, denies any fevers or bodyaches. PMHx: Past Medical History: Diagnosis Date Miscarriage Sleep apnea Current Outpatient Medications Medication Sig Dispense Refill escitalopram (Lexapro) 10 mg tablet azelastine (Astelin) 137 mcg (0.1 %) nasal spray Administer 2 sprays into each nostril 2 times a day for 15 days. Use in each nostril as directed 30 mL 0 vit/iron fum/folic ac ( VIT-FE FUMARATE-FA PO) Take 1 capsule by mouth once daily. No current facility-administered medications for this visit. PMSx: Past Surgical History: Procedure Laterality Date ADENOIDECTOMY 11/26/2015 Adenoidectomy HERNIA REPAIR 11/26/2015 Hernia Repair Fam Hx: No family history on file. SOC. Hx: Social History Socioeconomic History Marital status: Spouse name: Not on file Number of children: Not on file Years of education: Not on file Highest education level: Not on file Occupational History Not on file Tobacco Use Smoking status: Never Smokeless tobacco: Never Substance and Sexual Activity Alcohol use: Never Drug use: Never Sexual activity: Not on file Other Topics Concern Not on file Social History Narrative Not on file Social Determinants of Health Financial Resource Strain: Not on file Food Insecurity: Not on file Transportation Needs: Not on file Physical Activity: Not on file Stress: Not on file Social Connections: Not on file Intimate Partner Violence: Not on file Housing Stability: Not on file Vitals: 10/21/23 0944 BP: 132/82 Pulse: 97 Resp: 16 Temp: 36.9 C (98.5 F) SpO2: 98% 97.5 kg (215 lb) Physical Exam Constitutional: Appearance: Normal appearance. She is normal weight. HENT: Head: Normocephalic and atraumatic. Right Ear: Hearing and tympanic membrane normal. Left Ear: Hearing and tympanic membrane normal. Nose: Congestion present. Right Turbinates: Enlarged and swollen. Left Turbinates: Enlarged and swollen. Right Sinus: Maxillary sinus tenderness and frontal sinus tenderness present. Left Sinus: Maxillary sinus tenderness and frontal sinus tenderness present. Mouth/Throat: Mouth: Mucous membranes are moist. Pharynx: Posterior oropharyngeal erythema present. No pharyngeal swelling, oropharyngeal exudate or uvula swelling. Eyes: General: Lids are normal. Extraocular Movements: Extraocular movements intact. Comments: Wearing corrective lenses Cardiovascular: Rate and Rhythm: Normal rate and regular rhythm. Pulmonary: Effort: Pulmonary effort is normal. Breath sounds: Normal breath sounds. Abdominal: General: Abdomen is flat. Musculoskeletal: General: Normal range of motion. Cervical back: Normal range of motion and neck supple. Comments: Grossly normal strength Skin: General: Skin is warm. Findings: No rash (to exposed areas). Neurological: Mental Status: She is alert and oriented to person, place, and time. Psychiatric: Behavior: Behavior normal. Behavior is cooperative. LABORATORY @ RADIOLOGICAL IMAGING (if done): Results for orders placed or performed in visit on 10/21/23 (from the past 24 hour(s)) POCT BD Veritor Triplex Ag Result Value Ref Range POC Triplex SARS-CoV-2 Ag Presumptive negative for Triplex SARS-CoV-2 (no antigen detected) Presumptive negative for Triplex SARS-CoV-2 (no antigen detected) POC Triplex Flu A-Ag Presumptive negative for Triplex FLU A (no antigen detected) Presumptive negative for Triplex FLU A (no antigen detected) POC Triplex Flu B-Ag Presumptive negative for Triplex FLU B (no antigen detected) Presumptive negative for Triplex FLU B (no antigen detected) POCT respiratory syncytial virus manually resulted Result Value Ref Range RSV Rapid Ag Negative Negative UC COURSE/MEDICAL DECISION MAKING: Martin is a 33 y.o., who presents with a working diagnosis of 1. Rhinosinusitis with a differential to include: Influenza, parainfluenza, rhinovirus, adenovirus, metapneumovirus, coronavirus, COVID-19, postnasal drip, strep pharyngitis, GERD, retropharyngeal abscess, tonsillitis, adenitis, seasonal allergies Supportive care recommended, patient encouraged to push fluids, we discussed treatment plan at bedside and when to seek reevaluation she was voicing understanding, we discussed the possibility of transmission of medications through breastmilk which she was voiced understanding, we discussed timing of breast-feeding Gene Adams PA-C Advanced Practice Provider [facility] documented in this encounter [facility] Work Phone: Clinical Note 10-20-2022 Note Date & Type Note Facility 10-20-2022 Note Consultation has bee n requested by: Jaida Shepard MD EDC: Estimated Date of Delivery: 06/02/23 Gestational Age: 7w6d Reason for Consult: Non Classical CAH and viability Martin is here with her , Ashok History: (Detailed history is noted in the genetic counselor's note) Patient is patient of [facility], Dr. Shepard. 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 She will be arranging OB care. Imagin. Isidro intrauterine with cardiac activity present at 7w 6d with an FANI of 06/02/2023. 2. Trevose rump length measurement are consistent with supplied dating. 3. Anatomic detail is extremely limited at this early gestational age. 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 4. Normal uterus and adnexa. 5. Absence of free fluid in the pelvis. Please refer to the ultrasound report for full details. [facility] Counseling Summary Non Classic CAH Congenital adrenal hyperplasia (CAH) is a group of disorders with enzyme deficiency in the metabolic path dictating production of steroids (from cholesterol) in the adrenal glands. Specifically, production of mineralocorticoids, glucocorticoids and androgens (male sex hormones) is affected.. Classic (with severe enzyme deficiency and possible onset of virilization of females) and non-classic (with mild enzyme deficiency and onset) are the two major forms of CAH. 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 Approximatelyt 1 in 1,000 Americans have the non-classic form. Symptoms associated with non-classic CAH are related to excess production of male hormones and may include severe acne, premature puberty, initially accelerated growth but reduced final adult height and advanced bone age. Females with non-classic CAH may have an increased amount of body hair (hirsutism), delayed onset of menstruation, menstrual irregularities, polycystic ovaries and decreased fertility. Cortisol production is just mildly decreased and typically does not result in any clinically significant problems. Little has been published about males with non-classic 21-OHD CAH, but typically gonadal function is not impaired and sperm counts tend to be normal. Not all individuals with non-classic CAH require treatment. Martin has not required treatment in the past, but [facility] put her on Dexamethasone. It is unclear if this was for fertility issues. tnheritance is autosomal recessive. The particular [id number] gene change is a common non-classic CAH variants, and even when inherited in trans with a classic variant is overwhelming likely to be expected to have non-classic CAH. Ashok tested negative for [id number] gene changes, reducing his residual carrier risk to 1 in 200. We reviewed the potential implications of Martin's CAH test results for extended family members, and the availability of testing for other family members. Although a theoretical risk of virilization of female fetus remains, long-term risks are unknown. Therefore, dexamethasone therapy is considered an experimental approach and is recommended to be done only in a research setting. In general, treatment for fetuses at risk for non-classic CAH is not thought to be necessary. Researchers have concluded that therapy should be regarded as experimental and undertaken only in a research setting and after a detailed discussion with the couple about potential benefits and adverse effects. Current thinking suggests that female fetuses of women with either classic or non-classic CAH are not at increased risk for masculinization unless the fetus is actually affected with classic CAH. Consequently, treatment of women with CAH is directed toward their own well-being, rather than for prevention of masculinization of a female fetus, as long as the fetus is at low risk of actually having classic CAH. Martin does not require treatment. The patient understands that all neonates in [place] are screened for classic CAH due to a 21-hydroxylase deficiency as part of the [place] Screening blood test. Although some babies with non-classic CAH will be identified with this test, most are not. She expressed understanding of the above information. Follow Up Steroid treatment, specifically dexamethasone, is not recommended. Follow up MFM consultation and NT ultrasound scheduled for 11/24/2022. Comprehensive ultrasound for anatomy after 18 weeks gestation. Consideration for hereditary cancer consultation for Ashok. This can be scheduled by calling [phone]. Follow up as clinically indicated. The above recommendations are not a substitution for clinical judgment. These recommendations may need to be adjusted as the progresses and the clinical situation transitions. Precautions and warnings reviewed with the patient. The patient was asked to present to (more content not included)... [facility] 10-20-2022 Note Date & Type Note Facility 10-20-2022 Note Consultation has bee n requested by: Jaida Shepard MD EDC: Estimated Date of Delivery: 06/02/23 Gestational Age: 7w6d Reason for Consult: Non Classical CAH and viability Martin is here with her , Ashok History: (Detailed history is noted in the genetic counselor's note) Patient is patient of Dr. Emilia CHÁVEZ. 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 She will be arranging OB care. Imagin. Isidro intrauterine with cardiac activity present at 7w 6d with an FANI of 06/02/2023. 2. Trevose rump length measurement are consistent with supplied dating. 3. Anatomic detail is extremely limited at this early gestational age. 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 4. Normal uterus and adnexa. 5. Absence of free fluid in the pelvis. Please refer to the ultrasound report for full details. [facility] Counseling Summary Non Classic CAH Congenital adrenal hyperplasia (CAH) is a group of disorders with enzyme deficiency in the metabolic path dictating production of steroids (from cholesterol) in the adrenal glands. Specifically, production of mineralocorticoids, glucocorticoids and androgens (male sex hormones) is affected.. Classic (with severe enzyme deficiency and possible onset of virilization of females) and non-classic (with mild enzyme deficiency and onset) are the two major forms of CAH. 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 Approximatelyt 1 in 1,000 Americans have the non-classic form. Symptoms associated with non-classic CAH are related to excess production of male hormones and may include severe acne, premature puberty, initially accelerated growth but reduced final adult height and advanced bone age. Females with non-classic CAH may have an increased amount of body hair (hirsutism), delayed onset of menstruation, menstrual irregularities, polycystic ovaries and decreased fertility. Cortisol production is just mildly decreased and typically does not result in any clinically significant problems. Little has been published about males with non-classic 21-OHD CAH, but typically gonadal function is not impaired and sperm counts tend to be normal. Not all individuals with non-classic CAH require treatment. Martin has not required treatment in the past, but [facility] put her on Dexamethasone. It is unclear if this was for fertility issues. tnheritance is autosomal recessive. The particular [id number] p.V281L gene change is a common non-classic CAH variants, and even when inherited in trans with a classic variant is overwhelming likely to be expected to have non-classic CAH. Ashok tested negative for [id number] gene changes, reducing his residual carrier risk to 1 in 200. We reviewed the potential implications of Martin's CAH test results for extended family members, and the availability of testing for other family members. Although a theoretical risk of virilization of female fetus remains, long-term risks are unknown. Therefore, dexamethasone therapy is considered an experimental approach and is recommended to be done only in a research setting. In general, treatment for fetuses at risk for non-classic CAH is not thought to be necessary. Researchers have concluded that therapy should be regarded as experimental and undertaken only in a research setting and after a detailed discussion with the couple about potential benefits and adverse effects. Current thinking suggests that female fetuses of women with either classic or non-classic CAH are not at increased risk for masculinization unless the fetus is actually affected with classic CAH. Consequently, treatment of women with CAH is directed toward their own well-being, rather than for prevention of masculinization of a female fetus, as long as the fetus is at low risk of actually having classic CAH. Martin does not require treatment. The patient understands that all neonates in [place] are screened for classic CAH due to a 21-hydroxylase deficiency as part of the Screening blood test. Although some babies with non-classic CAH will be identified with this test, most are not. She expressed understanding of the above information. Follow Up Steroid treatment, specifically dexamethasone, is not recommended. Follow up MFM consultation and NT ultrasound scheduled for 11/24/2022. Comprehensive ultrasound for anatomy after 18 weeks gestation. Consideration for hereditary cancer consultation for Ashok. This can be scheduled by calling [phone]. Follow up as clinically indicated. The above recommendations are not a substitution for clinical judgment. These recommendations may need to be adjusted as the progresses and the clinical situation transitions. Precautions and warnings reviewed with the patient. The patient was asked to present to (more content not included)... 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) Adrenogenital disorders Summary Purpose Family History No Family History Records FoundNo Family History Records FoundNo Family History Records FoundNo Family History Records FoundNo Family History Records Found Advance Directives No Advanced Directives Records FoundNo Advanced Directives Records FoundNo Advanced Directives Records FoundNo Advanced Directives Records FoundNo Advanced Directives Records Found Additional Source Comments INFORMATION SOURCE (unrecogn ized section and content) DATE CREATED AUTHOR AUTHOR'S ORGANIZ ATION 08/15/2022 [facility] DATE CREATED AUTHOR AUTHOR'S ORGANIZ ATION 08/28/2022 [facility] DATE CREATED AUTHOR AUTHOR'S ORGANIZ ATION 10/27/2022 [facility] DATE CREATED AUTHOR AUTHOR'S ORGANIZ ATION 05/05/2023 [facility] Reason for Visit (unrecogniz ed section and content) Care Teams (unrecognized sec tion and content) FOR RECORDS PERTAINING TO PATIENTS WHO ARE OR HAVE BEEN ENROLLED IN A CHEMICAL DEPENDENCY/SUBSTANCEABUSE PROGRAM, SOME INFORMATION MAY BE OMITTED. This clinical summary was aggregated from multiple sources. Caution should be exercised in using it in the provision of clinical care. This summary normalizes information from multiple sources, and as a consequence, information in this document may materially change the coding, format and clinical context of patient data. In addition, data may be omitted in some cases. CLINICAL DECISIONS SHOULD BE BASED ON THE PRIMARY CLINICAL RECORDS. [facility] [employer] [facility] provides no warranty or guarantee of the accuracy or completeness of information in this document.
[2024-01-10 10:00] LABS: Absolute Lymphocyte Count 2.16 X10^3/uL (0.83-4.51); Absolute Neutrophil Count 4.2 X10^3/uL (2.0-7.7); Basophil# 0.03 X10^3/uL; Basophil% 0.4 % (0-1); Eosinophil# 0.32 X10^3/uL; Eosinophils% 4.5 % (0-5); Hematocrit 40.6 % (37-47); Hemoglobin 13.6 g/dL (12.0-15.0); Lymphocyte # 2.16 X10^3/ul (0.83-4.51); Mean Corp Hgb Conc 33.5 g/dL (32-36); Mean Corpuscular Hgb 29.2 pg (27.0-32.0); Mean Corpuscular Volume 87.1 fL (81-99); Mean Platelet Vol. 9.4 fl (6.2-12.0); Monocyte# 0.47 X10^3/uL; Monocyte% 6.5 % (0-10); NRBC Flagged by Analyzer 0 % (0-5); Neutrophil # 4.19 X10^3/uL (2.7-7.7); Neutrophil % 58.3 % (47-70); Platelet Count 353 K/mm3 (150-450); RBC Distribution Width CV 13.1 % (11.6-14.6); RBC Distribution Width SD 41.2 fl (35.1-43.9); Red Blood Count 4.66 M/mm3 (4.2-5.4); White Blood Count 7.2 K/mm3 (4.4-11.0)
[2024-01-10 11:11] LABS: Insulin 12.2 mU/L (2.6-37.6); Progesterone Level 0.54 ng/mL (See Comment)
[2024-01-10 12:30] LABS: ALB/GLOB Ratio 0.9 RATIO (0.9-2.4); AST(SGOT) 17 U/L (15-37); Alanine Aminotransfer ALT/SGPT 26 U/L (13-56); Albumin, Serum 3.7 g/dL (3.2-5.0); Alkaline Phosphatase 107 U/L (45-117); Anion Gap 5 (5-15); BUN 14 mg/dL (7-18); BUN/Creat Ratio 17.2 RATIO (10-20); Calcium,Total 8.8 mg/dL (8.5-10.1); Chloride 106 mmol/L (98-107); Cholesterol 213 mg/dL (200); Creatinine, Serum 0.81 mg/dL (0.55-1.02); EST Glomerular Filtration Rate 87 mL/min (>60); Est Glom Filt Rate - Afr Amer 105 mL/min (>60); Globulin 3.9 g/dL (2.2-4.2); Glucose 91 mg/dL (74-106); High Density Lipoprotein 52 mg/dL; Potassium 4.1 mmol/L (3.5-5.1); Protein, Total 7.6 g/dL (6.4-8.2); Sodium Level 141 mmol/L (136-145); T4 Free Direct 0.89 ng/dL (0.76-1.46); Thyroid Stim Hormone (TSH) 1.12 uIU/mL (0.358-3.74); Triglycerides 94 mg/dL; Very Low Density Lipoprotein 19 mg/dL (5-40)
[2024-01-15 13:07] LABS: Aldosterone, Serum 16.7 ng/dL (0.0-30.0); DHEA Sulfate 41.4 ug/dL (84.8-378.0)
[2024-01-15 15:08] LABS: 17-Hydroxyprogesterone 1301 ng/dL (.)
== END | disposition home or self-care (01) ==
LOC: PAVLAB 09:27
PROVIDERS: PCP Family Medicine; Referring Provider Family Medicine; Visit Provider Family Medicine
DX: Z00.00 Encounter for general adult medical examination without abnormal findings (principal); R53.83 Other fatigue; E88.819 Insulin resistance, unspecified
CPT/HCPCS: 36415; 80053; 80061; 82088; 82533; 82627; 82670; 83498; 83525; 84144; 84403; 84439; 84443; 85025; 82626

== ENCOUNTER → 2024-04-24 | Outpatient (CLI) | payer BC, SELFPAY ==
[2024-04-24 09:50] LABS: Hemoglobin A1c 5.5 % (3.8-5.6)
== END | disposition home or self-care (01) ==
LOC: PAVLAB 08:50
PROVIDERS: PCP Family Medicine; Referring Provider Family Medicine; Visit Provider Family Medicine
DX: R63.5 Abnormal weight gain (principal); R73.9 Hyperglycemia, unspecified
CPT/HCPCS: 36415; 82533; 83036

== ENCOUNTER → 2024-06-17 | Outpatient (CLI) | payer BC, SELFPAY ==
[2024-06-17 11:41] LABS: Absolute Lymphocyte Count 2.22 X10^3/uL (0.83-4.51); Basophil# 0.04 X10^3/uL; Basophil% 0.7 % (0-1); Eosinophil# 0.26 X10^3/uL; Eosinophils% 4.3 % (0-5); Hematocrit 41.1 % (37-47); Hemoglobin 13.3 g/dL (12.0-15.0); Lymphocyte # 2.22 X10^3/ul (0.83-4.51); Lymphocyte % 36.8 % (19-41); Mean Corp Hgb Conc 32.4 g/dL (32-36); Mean Corpuscular Hgb 28.8 pg (27.0-32.0); Mean Platelet Vol. 9.2 fl (6.2-12.0); Monocyte# 0.48 X10^3/uL; NRBC Flagged by Analyzer 0 % (0-5); Neutrophil # 3.01 X10^3/uL (2.7-7.7); Neutrophil % 49.9 % (47-70); Platelet Count 332 K/mm3 (150-450); RBC Distribution Width CV 13.2 % (11.6-14.6); RBC Distribution Width SD 43.5 fl (35.1-43.9); Red Blood Count 4.62 M/mm3 (4.2-5.4)
[2024-06-22 10:13] LABS: HPV APTIMA, High Risk Negative (Negative)
== END | disposition home or self-care (01) ==
PROVIDERS: PCP Family Medicine; Referring Provider Obstetrics & Gynecology; Visit Provider Obstetrics & Gynecology
DX: Z12.4 Encounter for screening for malignant neoplasm of cervix (principal); Z13.0 Encounter for screening for diseases of the blood and blood-forming organs and certain disorders involving the immune mechanism
CPT/HCPCS: 36415; 85025; 87624; 88175; G0145

== ENCOUNTER → 2024-09-09 | Outpatient (CLI) | payer BC, SELFPAY ==
[2024-09-09 14:57] LABS: Hemoglobin A1c 5.5 % (3.8-5.6)
[2024-09-09 14:59] LABS: AST(SGOT) 14 U/L (15-37); Alanine Aminotransfer ALT/SGPT 30 U/L (13-56); Albumin, Serum 3.9 g/dL (3.2-5.0); Alkaline Phosphatase 95 U/L (45-117); Anion Gap 5 (5-15); BUN 10 mg/dL (7-18); BUN/Creat Ratio 12.8 RATIO (10-20); Calcium,Total 8.9 mg/dL (8.5-10.1); Chloride 104 mmol/L (98-107); Creatinine, Serum 0.78 mg/dL (0.55-1.02); EST Glomerular Filtration Rate 90 mL/min (>60); Est Glom Filt Rate - Afr Amer 109 mL/min (>60); Glucose 124 mg/dL (74-106); Potassium 3.7 mmol/L (3.5-5.1); Protein, Total 7.9 g/dL (6.4-8.2); Sodium Level 139 mmol/L (136-145)
[2024-09-09 15:03] LABS: Microalbumin,Random Urine 60.7 mg/L (NO RANGE EST.); Microalbumin:Creatinine Ratio 59.5 mg/g CRE (<30 mg/g CRE)
[2024-09-11 04:08] LABS: DHEA Sulfate 64.2 ug/dL (84.8-378.0)
[2024-09-18 01:07] LABS: 17-Hydroxyprogesterone 830 ng/dL (.)
== END | disposition home or self-care (01) ==
LOC: PAVLAB 14:08
PROVIDERS: PCP Family Medicine; Referring Provider Internal Medicine Endocrinology, Diabetes & Metabolism; Visit Provider Internal Medicine Endocrinology, Diabetes & Metabolism
DX: E25.0 Congenital adrenogenital disorders associated with enzyme deficiency (principal)
CPT/HCPCS: 36415; 80053; 82043; 82570; 82627; 83036; 83498; 84443; 82626

== ENCOUNTER → 2024-09-11 | Outpatient (CLI) | payer BC, SELFPAY ==
[2024-09-11 10:40] LABS: Cholesterol 203 mg/dL (200); High Density Lipoprotein 47 mg/dL; Triglycerides 172 mg/dL; Very Low Density Lipoprotein 34 mg/dL (5-40)
== END | disposition home or self-care (01) ==
PROVIDERS: PCP Family Medicine; Referring Provider Internal Medicine Endocrinology, Diabetes & Metabolism; Visit Provider Internal Medicine Endocrinology, Diabetes & Metabolism
DX: E25.0 Congenital adrenogenital disorders associated with enzyme deficiency (principal)
CPT/HCPCS: 36415; 80061